=== PATIENT | female | born 1955 | race Caucasian/White ===

== ENCOUNTER → 2018-01-06 07:31 | Outpatient (CLI) | payer OTHER, SELFPAY ==
--- NOTE | 2018-01-06 07:53 | RAD_ITS ---
STUDY: X-RAY - PELVIS AND RIGHT HIP REASON FOR EXAM: Female, 62 years old. Right hip pain. TECHNIQUE: Radiological exam, hip, unilateral, with pelvis when performed; 2 or 3 views. COMPARISON: None. FINDINGS: There is a non-specific bowel gas pattern. Normal visualized soft tissue structures. There is narrowing with cortical sclerosis and osteophyte formation of the sacroiliac joint consistent with degenerative osteoarthritic changes. Normal bilateral superior and inferior pubic rami. Normal pubic symphysis. Normal bilateral ischial tuberosities. Normal visualized femoral head. Normal acetabulum. Normal hip joint. RAD/Hip 2-3 Views with Pelvis IMPRESSION: Degenerative changes of the sacroiliac joints bilaterally. Electronically Signed: George Sheikh MD at 13:07 EDT Tel [phone], Service support ,
--- NOTE | 2018-01-06 07:54 | RAD_ITS ---
STUDY: X-RAY - LUMBAR SPINE REASON FOR EXAM: Female, 62 years old. Low back and right lower extremity pain. TECHNIQUE: 5 view(s) of the lumbar spine were obtained including oblique views. COMPARISON: None FINDINGS: Normal lumbar lordosis. There is no substantial scoliosis. There is a normal alignment of the vertebrae. Normal vertebral bodies and endplates. Transitional vertebrae at the L5-S1 level with moderate degree of disc space narrowing. Facet joint osteoarthritis. The soft tissue structures are unremarkable. RAD/L/S Spine Min 4 Views IMPRESSION: Degenerative changes of the spine, as detailed above. Electronically Signed: George Sheikh MD at 13:27 EDT Tel [phone], Service support ,
[2018-01-06 10:53] LABS: Absolute Lymphocyte Count 1.89 X10^3/ul (0.83-4.51); Absolute Neutrophil Count 3.2 X10^3/uL (2.0-7.7); Basophil# 0.04 X10^3/uL; Basophil% 0.7 % (0-1); Eosinophil# 0.16 X10^3/uL; Eosinophils% 2.8 % (0-5); Hematocrit 38.3 % (37-47); Hemoglobin 12.5 g/dl (12.0-15.0); Lymphocyte # 1.89 X10^3/ul (4.0); Lymphocyte % 32.7 % (19-41); Mean Corp Hgb Conc 32.6 g/gl (32-36); Mean Corpuscular Hgb 27.4 pg (27.0-32.0); Mean Platelet Vol. 11.4 fl (6.2-12.0); Monocyte# 0.48 X10^3/uL; Monocyte% 8.3 % (0-10); Neutrophil % 55.3 % (47-70); POSITIVE COUNT NO; POSITIVE DIFFERENTIAL NO; POSITIVE MORPHOLOGY NO; Platelet Count 238 K/mm3 (150-450); RBC Distribution Width CV 13.6 % (11.6-14.6); RBC Distribution Width SD 41.1 fl (35.1-43.9); Red Blood Count 4.56 M/mm3 (4.2-5.4); White Blood Count 5.8 K/mm3 (4.4-11.0)
[2018-01-06 11:13] LABS: Vitamin B12 367 pg/mL (211-911); Vitamin D,25 Hydroxy 14.8 ng/mL (29.95-100.01)
[2018-01-06 11:23] LABS: ALB/GLOB Ratio 1.1 RATIO (0.9-2.4); AST(SGOT) 17 U/L (15-37); Alanine Aminotransfer ALT/SGPT 22 U/L (13-56); Albumin, Serum 3.6 g/dL (3.2-5.0); Alkaline Phosphatase 116 U/L (45-117); Anion Gap 7 (5-15); BUN 17 mg/dL (7-18); BUN/Creat Ratio 24.2 RATIO (10-20); Calcium,Total 8.6 mg/dL (8.5-10.1); Chloride 104 mmol/L (98-107); Cholesterol 188 mg/dL (200); EST Glomerular Filtration Rate 90 mL/min (>60); Est Glom Filt Rate - Afr Amer 108 mL/min (>60); Globulin 3.4 g/dL (2.2-4.2); Glucose 92 mg/dL (74-106); High Density Lipoprotein 55 mg/dL; Iron 44 ug/dL (50-170); Sodium Level 139 mmol/L (136-145); Thyroid Stim Hormone (TSH) 1.13 uIU/mL (0.358-3.74); Triglycerides 129 mg/dL; Very Low Density Lipoprotein 26 mg/dL (5-40)
== END ==
PROVIDERS: Family Provider Family Medicine; PCP Family Medicine; Visit Provider Family Medicine
DX: Z00.01 Encounter for general adult medical examination with abnormal findings (principal); E11.9 Type 2 diabetes mellitus without complications; R53.83 Other fatigue; M51.37 Other intervertebral disc degeneration, lumbosacral region; M48.07 Spinal stenosis, lumbosacral region
CPT/HCPCS: 36415; 72110; 73502; 80053; 80061; 82306; 82607; 83540; 84443; 85025

== ENCOUNTER → 2019-01-23 07:07 | Outpatient (CLI) | payer OTHER, SELFPAY ==
[2019-01-23 10:07] LABS: Absolute Lymphocyte Count 2.19 X10^3/ul (0.83-4.51); Absolute Neutrophil Count 3.6 X10^3/uL (2.0-7.7); Basophil# 0.05 X10^3/uL; Basophil% 0.8 % (0-1); Eosinophil# 0.16 X10^3/uL; Eosinophils% 2.4 % (0-5); Hematocrit 36.6 % (37-47); Lymphocyte # 2.19 X10^3/ul (4.0); Mean Corp Hgb Conc 32.8 g/gl (32-36); Mean Corpuscular Hgb 26.7 pg (27.0-32.0); Mean Corpuscular Volume 81.5 fL (81-99); Mean Platelet Vol. 10.7 fl (6.2-12.0); Monocyte# 0.65 X10^3/uL; Monocyte% 9.8 % (0-10); Neutrophil # 3.58 X10^3/uL (2.7-7.7); Neutrophil % 53.8 % (47-70); Platelet Count 289 K/mm3 (150-450); RBC Distribution Width CV 13.6 % (11.6-14.6); RBC Distribution Width SD 39.8 fl (35.1-43.9); Red Blood Count 4.49 M/mm3 (4.2-5.4); White Blood Count 6.6 K/mm3 (4.4-11.0)
[2019-01-23 10:20] LABS: ALB/GLOB Ratio 1.1 RATIO (0.9-2.4); AST(SGOT) 16 U/L (15-37); Alanine Aminotransfer ALT/SGPT 21 U/L (13-56); Albumin, Serum 3.6 g/dL (3.2-5.0); Alkaline Phosphatase 121 U/L (45-117); Anion Gap 4 (5-15); BUN 12 mg/dL (7-18); BUN/Creat Ratio 13.3 RATIO (10-20); Calcium,Total 8.6 mg/dL (8.5-10.1); Chloride 106 mmol/L (98-107); Cholesterol 200 mg/dL (200); EST Glomerular Filtration Rate 67 mL/min (>60); Est Glom Filt Rate - Afr Amer 81 mL/min (>60); Ferritin 11 ng/mL (8-252); Globulin 3.3 g/dL (2.2-4.2); Glucose 94 mg/dL (74-106); High Density Lipoprotein 50 mg/dL; Iron 56 ug/dL (50-170); Potassium 3.9 mmol/L (3.5-5.1); Protein, Total 6.9 g/dL (6.4-8.2); Sodium Level 137 mmol/L (136-145); Thyroid Stim Hormone (TSH) 1.51 uIU/mL (0.358-3.74); Triglycerides 213 mg/dL; Very Low Density Lipoprotein 43 mg/dL (5-40)
[2019-01-23 10:21] LABS: POSITIVE COUNT NO; POSITIVE DIFFERENTIAL NO; POSITIVE MORPHOLOGY NO; Vitamin B12 433 pg/mL (211-911); Vitamin D,25 Hydroxy 48.2 ng/mL (29.95-100.01)
== END ==
PROVIDERS: Family Provider Family Medicine; PCP Family Medicine; Referring Provider Family Medicine; Visit Provider Family Medicine
DX: E11.9 Type 2 diabetes mellitus without complications (principal); E55.9 Vitamin D deficiency, unspecified; E53.8 Deficiency of other specified B group vitamins; D50.9 Iron deficiency anemia, unspecified; E78.5 Hyperlipidemia, unspecified; R53.83 Other fatigue
CPT/HCPCS: 36415; 80053; 80061; 82306; 82607; 82728; 83540; 84443; 85025

== ENCOUNTER → 2019-05-18 12:06 | Outpatient (CLI) | payer OTHER, SELFPAY | LOC: BFHLAB 12:06 | PROVIDERS: Family Provider Family Medicine; PCP Family Medicine; Visit Provider Family Medicine | DX: R10.2 Pelvic and perineal pain (principal); R30.0 Dysuria | CPT/HCPCS: 87086; 87088 ==

== ENCOUNTER → 2019-10-04 07:45 | Outpatient (CLI) | payer OTHER, SELFPAY ==
[2019-05-23 18:05] VITALS: BMI 32.1
--- NOTE | 2019-10-04 08:00 | RAD_ITS ---
We are attempting to reach an attending provider to discuss findings. An addendum with communication details will be sent when the communication is complete. STUDY: X-RAY CHEST REASON FOR EXAM: Female, 64 years old. Mid left rib pain TECHNIQUE: PA and lateral COMPARISON: None. FINDINGS: The lungs are clear and expanded. There is subtle nodular opacity projecting over the left lower lobe measuring approximately 9 mm on the PA view possibly artifactual. Cannot definitively exclude lung nodule. Tiny calcified granuloma in right upper lobe. There is no demonstrated pleural abnormality. Normal size heart. Normal mediastinum and abigail. Normal visualized pulmonary arteries. Normal visualized aortic arch and descending thoracic aorta. Dorsal spine demonstrates degenerative change. Normal visualized ribs, clavicles, and shoulders. Small hiatal hernia is present. There is no demonstrated abnormality of the visualized soft tissue structures of the upper abdomen. RAD/Chest PA and Lateral IMPRESSION: Subtle nodular opacity projecting over the left lower lobe possibly artifactual. CT would be helpful for further evaluation Electronically Signed: Francisco Javier Reyes MD at 17:16 EST , Service support ,
[2019-10-04 10:09] LABS: Absolute Lymphocyte Count 2.34 X10^3/uL (0.83-4.51); Absolute Neutrophil Count 3.2 X10^3/uL (2.0-7.7); Basophil# 0.07 X10^3/uL; Basophil% 1.1 % (0-1); Eosinophil# 0.17 X10^3/uL; Eosinophils% 2.6 % (0-5); Hematocrit 37.1 % (37-47); Hemoglobin 11.7 g/dL (12.0-15.0); Lymphocyte # 2.34 X10^3/ul (4.0); Lymphocyte % 36.1 % (19-41); Mean Corp Hgb Conc 31.5 g/dL (32-36); Mean Corpuscular Hgb 25.9 pg (27.0-32.0); Mean Corpuscular Volume 82.3 fL (81-99); Mean Platelet Vol. 11.3 fl (6.2-12.0); Monocyte# 0.68 X10^3/uL; Monocyte% 10.5 % (0-10); NRBC Flagged by Analyzer 0 % (0-5); Neutrophil % 49.4 % (47-70); Platelet Count 269 K/mm3 (150-450); RBC Distribution Width CV 14.1 % (11.6-14.6); RBC Distribution Width SD 42.1 fl (35.1-43.9); Red Blood Count 4.51 M/mm3 (4.2-5.4); White Blood Count 6.5 K/mm3 (4.4-11.0)
[2019-10-04 10:31] LABS: ALB/GLOB Ratio 1.1 RATIO (0.9-2.4); AST(SGOT) 15 U/L (15-37); Alanine Aminotransfer ALT/SGPT 22 U/L (13-56); Albumin, Serum 3.7 g/dL (3.2-5.0); Alkaline Phosphatase 128 U/L (45-117); Anion Gap 7 (5-15); BUN 15 mg/dL (7-18); BUN/Creat Ratio 16.5 RATIO (10-20); Calcium,Total 9.1 mg/dL (8.5-10.1); Chloride 106 mmol/L (98-107); Creatinine, Serum 0.91 mg/dL (0.55-1.02); EST Glomerular Filtration Rate 66 mL/min (>60); Est Glom Filt Rate - Afr Amer 80 mL/min (>60); Globulin 3.5 g/dL (2.2-4.2); Glucose 102 mg/dL (74-106); Lipase 124 U/L (73-393); Protein, Total 7.2 g/dL (6.4-8.2); Sodium Level 139 mmol/L (136-145)
== END ==
PROVIDERS: Family Provider Family Medicine; PCP Family Medicine; Referring Provider Family Medicine; Visit Provider Family Medicine
DX: R07.89 Other chest pain (principal); R07.9 Chest pain, unspecified; R53.83 Other fatigue; R10.9 Unspecified abdominal pain
CPT/HCPCS: 36415; 71046; 80053; 83690; 85025

== ENCOUNTER → 2019-10-12 07:28 | Outpatient (CLI) | payer OTHER, SELFPAY ==
[2019-05-23 18:05] VITALS: BMI 32.1
--- NOTE | 2019-10-12 07:30 | CT_ITS ---
STUDY: CT CHEST WITHOUT CONTRAST REASON FOR EXAM: Female, 64 years old. Abnormal chest xray, 9 mm subtle nodular opacity projecting over the left lower lobe-possibly artifactual. Left rib pain. RADIATION DOSAGE (If Supplied By Facility): CTDIvol = ( 16.95 ) mGy, DLP = ( 601.40 ) mGycm TECHNIQUE: Transaxial imaging was performed without the administration of intravenous contrast material. Multiplanar coronal and sagittal images were reformatted. Individualized dose optimization techniques were used for this CT. COMPARISON: Comparison is made with prior chest radiograph dated October 04, 2019. FINDINGS: Small bilateral benign-appearing axillary lymph nodes. There is a 9 mm calcified granuloma in the anterior aspect of the left lower lobe corresponding to the chest radiographic findings. There is no demonstrated pleural abnormality. There are calcifications of the coronary arteries. There are multiple small lymph nodes within the mediastinum, which are normal in size and morphology most compatible with reactive lymph hyperplasia. Normal hilar regions. Normal unenhanced pulmonary arteries. There is atherosclerotic calcification of the aortic arch . There are mild degenerative changes of the thoracic spine. Moderate sized hiatal hernia. The patient is status post cholecystectomy. CT/Chest without Contrast IMPRESSION: Calcified granuloma in the anterior aspect of the left lower lobe corresponding to the radiographic abnormality. Electronically Signed: George Sheikh, at 14:01 EST , Service support ,
== END ==
PROVIDERS: Family Provider Family Medicine; PCP Family Medicine; Referring Provider Family Medicine; Visit Provider Family Medicine
DX: R93.89 Abnormal findings on diagnostic imaging of other specified body structures (principal); R91.1 Solitary pulmonary nodule
CPT/HCPCS: 71250

== ENCOUNTER → 2020-04-16 | Outpatient (CLI) | payer OTHER, SELFPAY ==
[2019-05-23 18:05] VITALS: BMI 32.1
[2020-04-16 12:39] LABS: Absolute Lymphocyte Count 2.09 X10^3/uL (0.83-4.51); Absolute Neutrophil Count 2.6 X10^3/uL (2.0-7.7); Basophil# 0.08 X10^3/uL; Basophil% 1.5 % (0-1); Eosinophil# 0.17 X10^3/uL; Eosinophils% 3.1 % (0-5); Hematocrit 35.1 % (37-47); Lymphocyte # 2.09 X10^3/ul (4.0); Lymphocyte % 38.1 % (19-41); Mean Corp Hgb Conc 31.3 g/dL (32-36); Mean Corpuscular Hgb 25.9 pg (27.0-32.0); Mean Corpuscular Volume 82.6 fL (81-99); Mean Platelet Vol. 11.3 fl (6.2-12.0); Monocyte# 0.58 X10^3/uL; Monocyte% 10.6 % (0-10); NRBC Flagged by Analyzer 0 % (0-5); Neutrophil # 2.55 X10^3/uL (2.7-7.7); Neutrophil % 46.3 % (47-70); Platelet Count 281 K/mm3 (150-450); RBC Distribution Width CV 14.6 % (11.6-14.6); RBC Distribution Width SD 43.2 fl (35.1-43.9); Red Blood Count 4.25 M/mm3 (4.2-5.4); White Blood Count 5.5 K/mm3 (4.4-11.0)
[2020-04-16 13:01] LABS: Hemoglobin A1c 5.9 % (3.8-5.6)
[2020-04-16 13:15] LABS: Vitamin B12 670 pg/mL (211-911); Vitamin D,25 Hydroxy 60.9 ng/mL
[2020-04-16 13:27] LABS: AST(SGOT) 14 U/L (15-37); Alanine Aminotransfer ALT/SGPT 19 U/L (13-56); Albumin, Serum 3.6 g/dL (3.2-5.0); Alkaline Phosphatase 119 U/L (45-117); Anion Gap 7 (5-15); BUN 12 mg/dL (7-18); BUN/Creat Ratio 13.5 RATIO (10-20); Calcium,Total 8.8 mg/dL (8.5-10.1); Chloride 104 mmol/L (98-107); Cholesterol 194 mg/dL (200); Creatinine, Serum 0.89 mg/dL (0.55-1.02); EST Glomerular Filtration Rate 68 mL/min (>60); Est Glom Filt Rate - Afr Amer 82 mL/min (>60); Ferritin 7 ng/mL (8-252); Globulin 3.5 g/dL (2.2-4.2); Glucose 86 mg/dL (74-106); High Density Lipoprotein 59 mg/dL; Iron 39 ug/dL (50-170); Protein, Total 7.1 g/dL (6.4-8.2); Sodium Level 137 mmol/L (136-145); Triglycerides 180 mg/dL; Very Low Density Lipoprotein 36 mg/dL (5-40)
== END | disposition home or self-care (01) ==
LOC: BFHLAB 10:44
PROVIDERS: PCP Family Medicine; Visit Provider Family Medicine
DX: E11.9 Type 2 diabetes mellitus without complications (principal); R53.83 Other fatigue; E55.9 Vitamin D deficiency, unspecified; E53.8 Deficiency of other specified B group vitamins; D50.9 Iron deficiency anemia, unspecified; E78.5 Hyperlipidemia, unspecified
CPT/HCPCS: 36415; 80053; 80061; 82306; 82607; 82728; 83036; 83540; 84443; 85025

== ENCOUNTER → 2020-06-03 15:24 | Outpatient (CLI) | payer OTHER, SELFPAY ==
[2019-05-23 18:05] VITALS: BMI 32.1
--- NOTE | 2020-06-02 15:30 | EGD_PTH ---
PATIENT: GAUTAM SHULTZ LOC: [facility] U#:[id number] AGE/SX: 70/F ROOM: RE06/03/[address]: Dr. Giovani Domingo MD : 1955 BED: DIS: SPEC #: [id number] RECD: 06/03/20 14:51 STATUS: YURIY REJeremías #: [id number] SHARRON: 06/02/20 15:[address]: Giovani Domingo DEPT: SURGICAL PATHOLOGY RECD BY: Terrence Pretty ENTERED: 06/04/20 08:33 SP TYPE: EGD BIOPSY OTHR DR: Dr. Shweta Wevaer DO Tissues: A - Duodenum, NOS B - Gastric mucous membrane C - COLON BIOPSY Procedures: Trichrome (control) Special Stain Group II Surgery Specimen Level IV HEADER OPERATION: EGD with biopsy and colonoscopy with biopsy PRE-OP DIAGNOSIS: E61.1, R19.4 TISSUE SUBMITTED: A - Duodenal biopsy, B - Antral biopsy H/H, C - Random colon biopsies MICROSCOPIC DIAGNOSIS A. Duodenum, biopsy: No pathologic change. B. Gastric antrum, biopsy: Chronic gastritis with focal active gastritis. C. Colon, random biopsy: Suggestive of collagenous colitis. See comment. AM:ramesh 06/05/20 A. COMMENT A. The results of immunohistochemistry for Helicobacter pylori will be reported separately ([id number]). C. Trichrome stain with matched control is focally prominent and supports the diagnosis. Case has been reviewed in consultation with Dr. Soria who concurs with the above diagnosis. IDC:SJ MICROSCOPIC DESCRIPTION Slides are reviewed. GROSS DESCRIPTION A - Received in fixative is one container labeled with the patient's name and designated duodenal biopsy. The specimen consists of two irregular fragments of light villanueva soft tissue that in aggregate measure 0.5 x 0.3 x 0.1 cm. The specimen is totally submitted in one cassette. B - Received in fixative is one container labeled with the patient's name and designated antral biopsy. The specimen consists of multiple irregular fragments of light villanueva soft tissue that in aggregate measure 0.8 x 0.2 x 0.1 cm. The specimen is totally submitted in one cassette. C - Received in fixative is one container labeled with the patient's name and designated random colon biopsy. The specimen consists of multiple irregular fragments of light villanueva soft tissue that in aggregate measure 2 x 1 x 0.1 cm. The specimen is totally submitted in one cassette. / SJ:rg 06/04/20 TC:3 CPT: 12502 x3, 88755
--- NOTE | 2020-06-03 | IMM_PTH ---
PATIENT: GAUTAM SHULTZ LOC: [facility] U#:[id number] AGE/SX: 70/F ROOM: RE06/03/[address]: Dr. Giovani Domingo MD : 1955 BED: DIS: SPEC #: [id number] RECD: 06/04/20 09:35 STATUS: YURIY REQ #: [id number] SHARRON: 06/03/20 00:[address]: Giovani Domingo DEPT: IMMUNOHISTOCHEMISTRY RECD BY: Jennyfer Acosta ENTERED: 06/04/20 09:37 SP TYPE: IMMUNO OTHR DR: Dr. Shweta Weaver, DO Tissues: B - Stomach, NOS Procedures: H Pylori (initial) PHYSICIAN & INSTITUTION [place] [id number] SPECIMEN INFORMATION: Tissue Source: B - Antrum biopsy Clinical Info: E61.1, R19.4 Specimen Number: [id number] CPT code: 95018 METHODOLOGY: Deparaffinized sections of prefer/formalin-fixed tissue or PAP/DQ stained slides are incubated with monoclonal/polyclonal antibodies/oligonucleotide probes. Localization is made via biotin free immunoperoxidase method. Appropriate controls are performed and reacted as expected. Results on target cell population are indicated in the following table: RESULTS: ANTIBODY / CLONE RESULT Block B H Pylori (polyclonal) positive These tests were developed and their performance characteristics determined by [facility]. They may not have been cleared or approved by the [place]. Food and Drug Administration. The FDA has determined that such clearance or approval is not necessary. INTERPRETATION: B. Antrum biopsy: Positive for Helicobacter pylori organisms. AM:ramesh 06/05/20
== END ==
PROVIDERS: PCP Family Medicine; Referring Provider Internal Medicine Gastroenterology; Visit Provider Internal Medicine Gastroenterology
DX: E61.1 Iron deficiency (principal)
CPT/HCPCS: 88305; 88313; 88342

== ENCOUNTER → 2020-08-21 07:20 | Outpatient (CLI) | payer OTHER, SELFPAY ==
[2019-05-23 18:05] VITALS: BMI 32.1
--- NOTE | 2020-08-21 07:22 | BI_ITS ---
MAMMOGRAPHY - BILATERAL SCREENING REASON FOR EXAM: Female, 65 years old. Routine annual screening examination. PERTINENT HISTORY: Non-contributory. TECHNIQUE: Digital bilateral breast jonh (3D mammographic acquisition) in the CC and MLO projections. 2-D mediolateral oblique (MLO) and craniocaudad (CC) views of both breasts were obtained. CAD: Full Field Digital Mammography with Computer Added Detection was performed. COMPARISON: Comparison is made with prior examination in 08/19/2017 and 04/13/2016. FINDINGS: Breast Composition: The breasts are heterogeneously dense, which may obscure small masses. There are no dominant masses or suspicious calcifications. Stable 7 mm well-defined nodule in the deep midportion of the right breast. This most likely represents a small intramammary lymph node. No other significant abnormalities are identified. There has been no significant change since the prior study. BI/SCREEN MAMM (CAD) W/JONH BILAT IMPRESSION: Stable bilateral screening mammogram. Yearly follow-up mammogram recommended. (A) ASSESSMENT CATEGORY: BIRADS Category 2: Benign. A letter regarding these results will be sent to the patient by the facility within 30 days. Approximately 10% of breast cancers are not detected by mammography. A normal mammogram should not delay biopsy of a clinically suspicious abnormality. [id number] Electronically Signed: George Sheikh, at 9:31 EDT , Service support ,
== END ==
PROVIDERS: PCP Family Medicine; Referring Provider Obstetrics & Gynecology; Visit Provider Obstetrics & Gynecology
DX: Z12.31 Encounter for screening mammogram for malignant neoplasm of breast (principal)
CPT/HCPCS: 77063; 77067

== ENCOUNTER 2020-11-09 13:49 | Emergency (ER) | payer OTHER, SELFPAY ==
[2019-05-23 18:05] VITALS: BMI 32.1
[2020-11-09 13:50] VITALS: BP 140/83; PULSE 108; RESP 17; TEMP 36.6; O2SAT 96; BMI 32.1
--- NOTE | 2020-11-09 14:31 | EKG12_ITS ---
Test Reason : CHEST TIGHTNESS Blood Pressure : / mmHG Vent. Rate : 096 BPM Atrial Rate : 096 BPM P-R Int : 142 ms QRS Dur : 084 ms QT Int : 344 ms P-R-T Axes : 055 032 030 degrees QTc Int : 434 ms Normal sinus rhythm Normal ECG Confirmed by BARTOLO AN, MUKUND ([id number]), video news editor ISAAK GREENE ([id number]) on 11/12/2020 6:56:12 AM Referred By: CL Confirmed By:MUKUND MCFARLAND MD
--- NOTE | 2020-11-09 14:50 | RAD_ITS ---
STUDY: X-RAY CHEST REASON FOR EXAM: Female, 65 years old. COUGH, SOB, LOSS OF TASTE AND SMELL TECHNIQUE: AP COMPARISON: 10/04/2018 FINDINGS: EKG leads project over the chest. The lungs are clear and expanded. There is no demonstrated pleural abnormality. Normal size heart. Normal mediastinum and abigail. Normal visualized pulmonary arteries. Normal visualized aortic arch and descending thoracic aorta. Normal visualized thoracic spine. Normal visualized ribs, clavicles, and shoulders. Hiatal hernia stable. RAD/Chest 1 View (Portable) IMPRESSION: Stable, nonacute portable x-ray examination of the chest. Electronically Signed: Edwin Saldana MD ([place]) at 15:07 EST , Service support ,
[2020-11-09 14:54] VITALS: O2SAT 97
[2020-11-09 14:57] LABS: Absolute Neutrophil Count 4.3 X10^3/uL (2.0-7.7); Basophil# 0.08 X10^3/uL; Basophil% 1.2 % (0-1); Eosinophil# 0.12 X10^3/uL; Eosinophils% 1.8 % (0-5); Hemoglobin 9.2 g/dL (12.0-15.0); Mean Corp Hgb Conc 30.7 g/dL (32-36); Mean Corpuscular Hgb 23.3 pg (27.0-32.0); Mean Corpuscular Volume 75.9 fL (81-99); Mean Platelet Vol. 10.5 fl (6.2-12.0); Monocyte# 0.55 X10^3/uL; Monocyte% 8.1 % (0-10); NRBC Flagged by Analyzer 0 % (0-5); Neutrophil # 4.33 X10^3/uL (2.7-7.7); Neutrophil % 63.5 % (47-70); Platelet Count 317 K/mm3 (150-450); RBC Distribution Width CV 14.6 % (11.6-14.6); RBC Distribution Width SD 40.4 fl (35.1-43.9); Red Blood Count 3.95 M/mm3 (4.2-5.4); White Blood Count 6.8 K/mm3 (4.4-11.0)
--- NOTE | 2020-11-09 14:58 | ED.VISSUMM ---
- ER Visit Summary Date of Service: 11/09/20 Chief Complaint: Shortness of breath History of Present Illness: The patient is a 65 F who presents with shortness of breath that has been getting worse over the past 3 days. Patient states she feels like it is hard to breathe. Patient states this is worse with walking and going up and down stairs. Patient states she has been taking albuterol aerosols at home with some relief. Patient admits to a loss of taste but denies any loss of smell. Patient also admits to rhinorrhea and sore throat. Patient states she is coughing up some thick yellow and green sputum. Patient does admit to a headache. Physical Examination: Vital signs are stable except for mild tachycardia of 108. Patient is afebrile. Patient is in no acute distress. Oral mucosa is pink and moist. Neck is supple. Trachea is midline. There is no JVD noted. Heart was regular rate and rhythm. Lungs showed some mild expiratory wheezing bilaterally. There is good respiratory effort. There are no retractions. Abdomen is soft. Bowel sounds are normal. There is no tenderness. There is no rebound or guarding noted. Skin is warm dry. Cranial nerves II through XII are intact. There are no focal motor or sensory deficits noted. Extremities are intact. There is no calf tenderness or edema. Test Results: EKG was obtained. On my interpretation, there is a normal sinus rhythm with a rate of 96. There are no acute ST or T wave changes. CBC shows mild anemia with a hemoglobin of 9.2 hematocrit 30.0. Comprehensive metabolic profile was within normal limits. COVID-19 rapid antigen test was obtained and was negative. Portable 1 view chest x-ray was obtained. On my interpretation, lung mccurdy are clear. There is normal cardiac silhouette. Bony thorax is normal. There is no acute process noted. Radiologist also interpreted the x-ray and agrees. Emergency Department Course and Treatment: Patient was given albuterol inhaler here. Patient was feeling better on reevaluation. Patient was given a dose of Tylenol. Patient was instructed to continue Tylenol and ibuprofen as needed for pain. Patient was instructed to follow-up with her primary care physician in 5 to 7 days. Patient understood and was agreeable with the plan. All questions were answered. Disposition: Discharge home Impression: Viral upper respiratory infection This note was generated with [employer] dictation software. It may contain incorrect words, spelling, and punctuation that were not noted in review of the chart prior to signing ED Disposition - Plan for ED Patient: Disposition: Home or Assisted Living Diagnosis: Viral illness Instructions: ED URI, Viral, No Abx (Adult) Referrals: Shweta Weaver DO [Primary Care Provider] - 5-7 Days
[2020-11-09] MEDS: Acetaminophen 500 MG Tablet 1000 MG PO (15:01)
[2020-11-09 15:20] LABS: AST(SGOT) 13 U/L (15-37); Alanine Aminotransfer ALT/SGPT 16 U/L (13-56); Albumin, Serum 3.4 g/dL (3.2-5.0); Alkaline Phosphatase 117 U/L (45-117); Anion Gap 5 (5-15); BUN 11 mg/dL (7-18); BUN/Creat Ratio 12.6 RATIO (10-20); Calcium,Total 8.5 mg/dL (8.5-10.1); Chloride 108 mmol/L (98-107); Creatinine, Serum 0.87 mg/dL (0.55-1.02); EST Glomerular Filtration Rate 69 mL/min (>60); Est Glom Filt Rate - Afr Amer 84 mL/min (>60); Estimated Creatinine Clearance 55.67 ml/min; Globulin 3.4 g/dL (2.2-4.2); Glucose 118 mg/dL (74-106); Potassium 3.6 mmol/L (3.5-5.1); Protein, Total 6.8 g/dL (6.4-8.2); Sodium Level 139 mmol/L (136-145)
[2020-11-09 15:23] LABS: Lactic Acid 1.6 mmol/L (0.4-1.9)
[2020-11-09 16:00] VITALS: BP 134/87; PULSE 77; RESP 16; TEMP 36.8; O2SAT 97
[2020-11-09 18:04] VITALS: BP 111/79; PULSE 77; RESP 14; O2SAT 97
== END 2020-11-09 18:05 | disposition home or self-care (01) ==
PROVIDERS: Emergency Provider Emergency Medicine; PCP Family Medicine
DX: J06.9 Acute upper respiratory infection, unspecified (principal)
CPT/HCPCS: 71045; 80053; 82607; 83605; 85025; 87040; 87426; 93005; 99285; A4216

== ENCOUNTER → 2020-11-10 09:37 | Outpatient (CLI) | payer OTHER, SELFPAY ==
[2020-11-09 13:50] VITALS: BMI 32.1
[2020-11-10 10:45] LABS: Ferritin 5 ng/mL (8-252); Iron 18 ug/dL (50-170)
== END ==
LOC: ED 09:38 → BFHLAB 11:46
PROVIDERS: PCP Family Medicine; Visit Provider Family Medicine
DX: D64.9 Anemia, unspecified (principal)
CPT/HCPCS: 82728; 83540

== ENCOUNTER → 2020-12-15 08:23 | Outpatient (CLI) | payer OTHER, SELFPAY ==
[2020-12-15 12:50] LABS: Absolute Lymphocyte Count 1.65 X10^3/uL (0.83-4.51); Absolute Neutrophil Count 2.2 X10^3/uL (2.0-7.7); Basophil# 0.07 X10^3/uL; Basophil% 1.6 % (0-1); Eosinophil# 0.12 X10^3/uL; Eosinophils% 2.7 % (0-5); Hematocrit 33.4 % (37-47); Hemoglobin 9.8 g/dL (12.0-15.0); Lymphocyte # 1.65 X10^3/ul (4.0); Lymphocyte % 36.9 % (19-41); Mean Corp Hgb Conc 29.3 g/dL (32-36); Mean Corpuscular Hgb 22.6 pg (27.0-32.0); Mean Platelet Vol. 11.1 fl (6.2-12.0); Monocyte# 0.41 X10^3/uL; Monocyte% 9.2 % (0-10); NRBC Flagged by Analyzer 0 % (0-5); Neutrophil # 2.21 X10^3/uL (2.7-7.7); Neutrophil % 49.4 % (47-70); Platelet Count 321 K/mm3 (150-450); RBC Distribution Width CV 15.1 % (11.6-14.6); RBC Distribution Width SD 41.8 fl (35.1-43.9); Red Blood Count 4.34 M/mm3 (4.2-5.4); White Blood Count 4.5 K/mm3 (4.4-11.0)
[2020-12-15 13:05] LABS: Vitamin B12 1077 pg/mL (211-911)
[2020-12-15 13:21] LABS: Ferritin 7 ng/mL (8-252); Iron 22 ug/dL (50-170)
== END ==
PROVIDERS: PCP Family Medicine; Visit Provider Family Medicine
DX: D64.9 Anemia, unspecified (principal); E61.1 Iron deficiency; E53.8 Deficiency of other specified B group vitamins
CPT/HCPCS: 36415; 82607; 82728; 83540; 85025

== ENCOUNTER → 2021-05-22 08:14 | Outpatient (CLI) | payer OTHER, SELFPAY ==
[2021-05-22 10:21] LABS: Absolute Lymphocyte Count 1.97 X10^3/uL (0.83-4.51); Absolute Neutrophil Count 3.1 X10^3/uL (2.0-7.7); Basophil# 0.05 X10^3/uL; Basophil% 0.9 % (0-1); Eosinophils% 3.4 % (0-5); Hematocrit 33.6 % (37-47); Hemoglobin 10.4 g/dL (12.0-15.0); Lymphocyte # 1.97 X10^3/ul (0.83-4.51); Lymphocyte % 33.8 % (19-41); Mean Corpuscular Hgb 24.6 pg (27.0-32.0); Mean Corpuscular Volume 79.4 fL (81-99); Mean Platelet Vol. 11.1 fl (6.2-12.0); Monocyte# 0.53 X10^3/uL; Monocyte% 9.1 % (0-10); NRBC Flagged by Analyzer 0 % (0-5); Neutrophil # 3.05 X10^3/uL (2.7-7.7); Neutrophil % 52.5 % (47-70); Platelet Count 335 K/mm3 (150-450); RBC Distribution Width CV 14.6 % (11.6-14.6); RBC Distribution Width SD 41.9 fl (35.1-43.9); Red Blood Count 4.23 M/mm3 (4.2-5.4); White Blood Count 5.8 K/mm3 (4.4-11.0)
[2021-05-22 10:28] LABS: Ferritin 8 ng/mL (8-252); Iron 43 ug/dL (50-170)
[2021-05-22 10:31] LABS: Vitamin B12 700 pg/mL (211-911)
== END ==
PROVIDERS: PCP Family Medicine; Referring Provider Family Medicine; Visit Provider Family Medicine
DX: D64.9 Anemia, unspecified (principal); E61.1 Iron deficiency; E53.8 Deficiency of other specified B group vitamins
CPT/HCPCS: 36415; 82607; 82728; 83540; 85025

== ENCOUNTER → 2021-08-24 07:41 | Outpatient (CLI) | payer OTHER, SELFPAY ==
--- NOTE | 2021-08-24 07:44 | BI_ITS ---
MAMMOGRAPHY - BILATERAL SCREENING REASON FOR EXAM: Female, 66 years old. Routine annual screening examination. PERTINENT HISTORY: Non-contributory. TECHNIQUE: Digital bilateral breast jnoh (3D mammographic acquisition) in the CC and MLO projections. 2-D mediolateral oblique (MLO) and craniocaudad (CC) views of both breasts were obtained. CAD: Full Field Digital Mammography with Computer Added Detection was performed. COMPARISON: Comparison is made with prior study 08/21/2020 and 08/19/2017. FINDINGS: Breast Composition: The breasts are heterogeneously dense, which may obscure small masses. There are no dominant masses or suspicious calcifications. Stable 7 mm well-defined nodule in the deep midportion of the right breast. This most likely represents a small lymph node. No other significant abnormalities are identified. There has been no significant change since the prior study. BI/SCRN MAMM (CAD)W/JONH BILAT IMPRESSION: Stable bilateral screening mammogram. Yearly follow-up mammogram recommended. (A) ASSESSMENT CATEGORY: BIRADS Category 2: Benign. A letter regarding these results will be sent to the patient by the facility within 30 days. Approximately 10% of breast cancers are not detected by mammography. A normal mammogram should not delay biopsy of a clinically suspicious abnormality. [id number] Electronically Signed: George Sheikh MD at 8:26 EDT , Service support ,
== END ==
PROVIDERS: PCP Family Medicine; Referring Provider Obstetrics & Gynecology; Visit Provider Obstetrics & Gynecology
DX: Z12.31 Encounter for screening mammogram for malignant neoplasm of breast (principal)
CPT/HCPCS: 77063; 77067

== ENCOUNTER → 2021-10-19 12:38 | Outpatient (CLI) | payer OTHER, SELFPAY | PROVIDERS: PCP Family Medicine; Visit Provider Family Medicine | DX: U07.1 COVID-19 (principal) | CPT/HCPCS: 87633; 87635; U0005; U0003 ==

== ENCOUNTER 2022-01-31 21:07 | Observation (INO) | payer MEDICARE, OTHER, SELFPAY ==
--- NOTE | 2022-01-31 21:05 | EKG12_ITS ---
Test Reason : AM EKG Blood Pressure : / mmHG Vent. Rate : 069 BPM Atrial Rate : 069 BPM P-R Int : 156 ms QRS Dur : 076 ms QT Int : 416 ms P-R-T Axes : 066 079 048 degrees QTc Int : 445 ms Normal sinus rhythm Normal ECG When compared with ECG of 31-JAN-2022 21:52, MANUAL COMPARISON REQUIRED, DATA IS UNCONFIRMED Confirmed by CLAUDIA AN, LENNY ([id number]), videotape editor YG GRAY ([id number]) on 02/05/2022 1:11:06 PM Referred By: Confirmed By:SKY TAYLOR MD
--- NOTE | 2022-01-31 21:47 | PCM.HP.STD ---
HPI - General General Date of Admission: 01/31/22 Date of Service: 01/31/22 Chief Complaint: Chest pain HPI Narrative The patient is a 66 y/o F w/ PMHx: Anxiety and Depression, Chronic anemia/Fe/Vit B12, Hx Diabetes mellitus type II, Hx HTN, Hx HLD, GERD, Hx COVID-19 illness 09/2021, PMR who presents to the [facility] as direct admission on 01/31/22 following evaluation at OSH ED on 01/31/22 with history of onset chest discomfort starting the day prior to OSH ED presentation noted to be located in the midsternal region without radiation, described as sharp, constant, rated 6/10 in severity with home self administration 81 mg po x 2 with no improvement with any interventions with associated dyspnea with noted specifically ongoing shortness of breath with exertion over the last month with occasional wheezing with underlying asthma history but has had no worsening status or recent cough and never had any associated chest discomfort prompting evaluation. Work-up in the OSH ED included VS BP 123/87, RR 16, HR 78, T 96.9, 97% on RA, CTA chest with no acute evidence of PE, no acute cardiopulmonary findings, moderate-sized sliding-type hiatal hernia, high-sensitivity initial troponin initial 7 and repeat 7, chest x-ray with small nodular density overlying left lower rib stable compared to prior, SARS Covid PCR negative, negative influenza AMB, CBC with WC 6.8, hemoglobin 10.8, platelet 269 without marked shift, BMP with BUN/creatinine 12/0.1, sodium 138, potassium 3.9, chloride 104, glucose 136, proBNP 149, D-dimer 750, EKG SR with nonspecific changes without acute evidence of ischemia. In the ED patient administered NG SL x 2, ASA 81 mg x 2 with improvement of chest pain 3/10. Patient has had care at [facility] prior and requested transfer to this facility. Upon arrival at [facility] she notes still 3 of 10 discomfort to the midsternal chest with no radiation. EKG repeat at [facility] with normal sinus rhythm with no acute evidence of ischemia. [facility] Medical History (Updated 01/31/22 @ 22:14 by Ivette Salinas) Anemia Anxiety Anxiety and depression Asthma Chronic iron deficiency anemia Chronic pain COVID-19 Diabetes Diabetes mellitus, type 2 GERD (gastroesophageal reflux disease) HLD (hyperlipidemia) HTN (hypertension) Non-smoker Polymyalgia rheumatica Sleep apnea Home Medications esomeprazole magnesium [Nexium] 40 mg PO DAILY 09/03/13 [History Last Taken 09/01/13 08:00] aspirin 81 mg PO DAILY@0800 #30 tab.chew 09/04/13 [Rx Last Taken Unknown] Vitamin Daily 01/31/22 [History Last Taken Unknown] Vitamin-D + [place]-3 01/31/22 [History Last Taken Unknown] albuterol sulfate INHALATION 01/31/22 [History Last Taken Unknown] calcium 01/31/22 [History Last Taken Unknown] cyanocobalamin (vitamin B-12) 01/31/22 [History Last Taken Unknown] Allergy/AdvReac Type Severity Reaction Status Date / Time Penicillins Allergy Hives Verified 11/09/20 13:50 morphine AdvReac Hives Verified 01/31/22 22:17 Family History (Updated 01/31/22 @ 19:[address] Trisha Nguyen MD) Mother CAD (coronary artery disease) CABG age 59. Hypertension Heart disease Myocardial infarction Father CAD (coronary artery disease) [place] in his 70s. Hypertension Heart disease Myocardial infarction Brother Myocardial infarction Diabetes Sister COPD (chronic obstructive pulmonary disease) Surgical History (Updated 01/31/22 @ 22:14 by Ivette Salinas) H/O arthroscopic knee surgery History of appendectomy History of carpal tunnel release History of uterine suspension procedure S/P appendectomy S/P bilateral cataract extraction Status post hysteroscopic ablation of endometrium Social History (Updated 01/31/22 @ 19:[address] Trisha Nguyen MD) household members: other details: None, , spouse passed 2002. Smoking Status: Never smoker alcohol intake: never substance use type: does not use ROS ROS Narrative Admission Review of Systems: CONSTITUTIONAL: No weight loss, fever, chills, + weakness or fatigue. HEENT: Eyes: No visual loss, blurred vision, double vision or yellow sclerae. Ears, Nose, Throat: No hearing loss, sneezing, congestion, runny nose or sore throat. SKIN: No rash or itching, lesions, wounds. CARDIOVASCULAR: + chest pain, chest pressure or chest discomfort, No palpitations, edema, orthopnea, syncopal events. RESPIRATORY: + Shortness of breath, occasional wheezing, No cough or sputum, hemoptysis. GASTROINTESTINAL: No anorexia, nausea, vomiting or diarrhea, abdominal pain, melena, BRBPR. GENITOURINARY: No dysuria, frequency, urgency or retention. NEUROLOGICAL: No headache, dizziness, syncope, paralysis, ataxia, numbness or tingling in the extremities, focal weakness, change in bowel or bladder control, seizure. MUSCULOSKELETAL: + muscle, back pain, joint pain or stiffness. HEMATOLOGIC: + anemia, bleeding or bruising. LYMPHATICS: No enlarged nodes. No history of splenectomy. PSYCHIATRIC: + history of depression or anxiety. ENDOCRINOLOGIC: No reports of sweating, cold or heat intolerance. No polyuria or polydipsia. ALLERGIES: + history of asthma, hives, eczema or rhinitis. Physical Exam Narrative Physical Examination: General: Awake, alert, oriented x 3 and cooperative, seated upright in the PCU bed, fatigued otherwise no acute distress. Skin: Normal color, normal turgor, no icterus, no cyanosis. HEENT: AT/NC, EOMI, PERRLA, MMM, no carotid bruits or JVD noted. Lungs: Mildly diminished, greater bases, very scant occasional end expiratory wheeze, no rales or rhonchi, no evidence of any distress. Heart: Currently regular rate and rhythm; no gallop, rub audible. Abdomen: Soft, obese, NTTP, ND, normal BS, no HSM. Extremities: No cyanosis, clubbing, or edema. Neurological: Patient awake, alert, oriented as noted, cognitive function intact; pupils equally reactive to light and accommodation, cranial nerves II-XII grossly normal, moving all 4 extremities, no focal deficits, strength mildly global decrease secondary to acute complaints. Psychiatric: Affect appears fatigued otherwise normal, no acute evidence of depressive or anxiety feelings. Assessment & Plan Assessment/Plan (1) Chest pain: QUALIFIERS: Chest pain type: unspecified Qualified Code(s): R07.9 - Chest pain, unspecified PLAN: The patient is a 66 y/o F w/ PMHx: Anxiety and Depression, Chronic anemia/Fe/Vit B12, Hx Diabetes mellitus type II, Hx HTN, Hx HLD, GERD, Hx COVID-19 illness 09/2021, PMR who presents to the [facility] as direct admission on 01/31/22 following evaluation at OSH ED on 01/31/22 with history of onset chest discomfort starting the day prior to OSH ED presentation noted to be located in the midsternal region without radiation, described as sharp, constant, rated 6/10 in severity with exertional dyspnea. #1. Chest Pain: EKG in ED sinus rhythm with nonspecific changes with no acute evidence of a skin, CXR w/ no acute cardiopulmonary findings with follow-up CTPA without acute findings, initial trop and repeat both 7. Will admit to PCU, place on a monitored bed to assure no acute myocardial infarction with serial cardiac enzymes and EKGs. We will plan a.m. cardiac stress testing on Tuesday. ECHO requested. FLP in a.m. Magnesium level requested. ASA, NG, morphine. #2. History Diabetes mellitus type II: Patient with history of prediabetes and eventual diabetic history however not currently on medications but from discussion suspect has had worsening A1c, will obtain to assist in initiation of medications if appropriate at this time, ADA diet until n.p.o. status, accu checks w/ ISS. #3. History Hypertension: Patient with noted history of previous lisinopril, hydrochlorothiazide regimen, no longer on regimen per current list, will monitor and add regimen if appropriate, noted BP normal range at outside facility, as needed IV hydralazine. #4. Chronic Asthma with allergic rhinitis: Not on any home inhalers, will maintain on ATC budesonide, PRN albuterol, continue home Singulair and cetirizine regimen. #5. Hyperlipidemia: Not on any regimen, FLP in a.m. #6. Anxiety and depression: Recent records noting outpatient citalopram regimen, not on current list, clarifying. #7. GERD with hiatal hernia: We will continue patient home PPI. #8. Chronic anemia, iron deficiency, vitamin B12 deficiency: From review of records patient with outpatient injections with vitamin B12, outside facility hemoglobin 10.8, appears stable, trend. #9. DVT prophylaxis: SCDs, Lovenox. Charges/Coding Visit Charges OBSV E&M: 44739 Initial observation care L3
--- NOTE | 2022-01-31 21:49 | ECHOCS_ITS ---
Reason For Study: ARRHYTHMIA Procedure This was a 2D Doppler, Color Flow transthoracic echocardiogram. The study was technically difficult. Due to body habitus. Exam performed portable in patient room. Left Ventricle Normal LV size. Left ventricular systolic function is normal. The estimated ejection fraction is 60 %. Stage 1 diastolic dysfunction. No regional wall motion abnormalities noted. Right Ventricle Normal RV size. Normal systolic function. Atria Normal left atrium. Normal right atrium. Mitral Valve Normal mitral valve. Tricuspid Valve Normal tricuspid valve. Aortic Valve Trisinus/trileaflet aortic valve. Pulmonic Valve The pulmonic valve is not well visualized. Great Vessels Normal aortic root. The pulmonary artery is normal size. Normal inferior vena cava. Pericardium/Pleural No pericardial effusion. Medication Diluted definity 4.0ml given slow IV push to enhance endocardial definition. MMode/2D Measurements & Calculations LVIDd: 4.8 cm IVSd: 0.80 cm Ao root diam: 3.0 cm LVIDs: 3.1 cm LVPWd: 0.80 cm RVDd: 2.8 cm FS: 35.3 % LAV(MOD-bp): 66.2 ml LA A4 area: 20.9 cm2 LA dimension(2D): 3.8 cm LAV(MOD-bp) Indexed: 35.4 ml/m2 LAV(MOD-sp2): 65.2 ml LAV(MOD-sp4): 57.1 ml Time Measurements MV dec time: 0.21 sec Doppler Measurements & Calculations MV E max rocky: 102.5 cm/sec Lat Peak E' Rocky: 8.1 cm/sec Med Peak E' Rocky: 6.6 cm/sec MV A max rocky: 120.9 cm/sec E/E' lat: 12.7 E/E' med: 15.6 MV E/A: 0.85 Ao V2 max: 166.8 cm/sec LV V1 max: 122.4 cm/sec PA V2 max: 142.4 cm/sec Ao max P.1 mmHg LV V1 max P.0 mmHg ECHO/Echo Complete W/ Contrast Interpretation Summary Normal LV size. Left ventricular systolic function is normal. The estimated ejection fraction is 60 %. Stage 1 diastolic dysfunction. Contrast injection was performed. Ordering Physician: Trisha Nguyen Referring Physician: Shweta Weaver Performed By: Lulu Parkinson, MAGCS, RVT
[2022-01-31 21:50] VITALS: BP 184/85; PULSE 81; RESP 18; TEMP 36.4; O2SAT 99
[2022-01-31 21:53] VITALS: PULSE 102; BMI 32.9
[2022-01-31 22:57] LABS: Magnesium 1.9 mg/dL (1.6-2.6); Troponin-I HS < 3 pg/mL (3.0-54.0)
[2022-01-31] MEDS: 0.9% Normal Saline 1,000 ML 100 ML IV (23:02)
[2022-01-31 23:04] VITALS: BP 184/85; PULSE 81
[2022-01-31] MEDS: hydrALAZINE 20 MG/ML Vial 10 MG IV (23:04)
[2022-01-31] MEDS: Acetaminophen 325 MG Tablet 650 MG PO (23:07)
[2022-01-31] MEDS: 0.9% Saline Lock 10 ML Syringe IV (23:08)
[2022-01-31 23:25] VITALS: BP 144/77; PULSE 80; RESP 16; TEMP 36.6; O2SAT 98
[2022-02-01 00:01] LABS: Bedside Glucose 119 mg/dL (74-106)
[2022-02-01 00:47] LABS: Troponin-I HS < 3 pg/mL (3.0-54.0)
[2022-02-01 05:08] LABS: Absolute Neutrophil Count 4.1 X10^3/uL (2.0-7.7); Basophil# 0.08 X10^3/uL; Eosinophil# 0.18 X10^3/uL; Eosinophils% 2.3 % (0-5); Hemoglobin 10.6 g/dL (12.0-15.0); Lymphocyte % 33.9 % (19-41); Mean Corp Hgb Conc 32.1 g/dL (32-36); Mean Corpuscular Hgb 25.1 pg (27.0-32.0); Mean Platelet Vol. 10.6 fl (6.2-12.0); Monocyte# 0.69 X10^3/uL; NRBC Flagged by Analyzer 0 % (0-5); Neutrophil # 4.08 X10^3/uL (2.7-7.7); Neutrophil % 53.4 % (47-70); Platelet Count 255 K/mm3 (150-450); RBC Distribution Width CV 15.2 % (11.6-14.6); RBC Distribution Width SD 43.2 fl (35.1-43.9); Red Blood Count 4.23 M/mm3 (4.2-5.4); White Blood Count 7.7 K/mm3 (4.4-11.0)
[2022-02-01 05:23] VITALS: BP 150/78; PULSE 72; RESP 16; TEMP 36.6; O2SAT 98
[2022-02-01] MEDS: Acetaminophen 325 MG Tablet 650 MG PO ×2 (05:29→12:31)
[2022-02-01] MEDS: Aspirin E.C. 81 MG Tablet PO (05:29)
[2022-02-01 05:30] LABS: ALB/GLOB Ratio 1.1 RATIO (0.9-2.4); AST(SGOT) 13 U/L (15-37); Alanine Aminotransfer ALT/SGPT 13 U/L (13-56); Albumin, Serum 3.2 g/dL (3.2-5.0); Alkaline Phosphatase 95 U/L (45-117); Anion Gap 5 (5-15); BUN 11 mg/dL (7-18); BUN/Creat Ratio 16.2 RATIO (10-20); Calcium,Total 8.3 mg/dL (8.5-10.1); Chloride 108 mmol/L (98-107); Cholesterol 186 mg/dL (200); Creatinine, Serum 0.68 mg/dL (0.55-1.02); EST Glomerular Filtration Rate 92 mL/min (>60); Est Glom Filt Rate - Afr Amer 111 mL/min (>60); Estimated Creatinine Clearance 45.78 ml/min; Globulin 2.9 g/dL (2.2-4.2); Glucose 105 mg/dL (74-106); High Density Lipoprotein 51 mg/dL; Potassium 3.5 mmol/L (3.5-5.1); Protein, Total 6.1 g/dL (6.4-8.2); Sodium Level 138 mmol/L (136-145); Triglycerides 143 mg/dL; Troponin-I HS 3 pg/mL (3.0-54.0); Very Low Density Lipoprotein 29 mg/dL (5-40)
--- NOTE | 2022-02-01 05:55 | EKG12_ITS ---
Test Reason : CP Blood Pressure : / mmHG Vent. Rate : 080 BPM Atrial Rate : 080 BPM P-R Int : 142 ms QRS Dur : 078 ms QT Int : 390 ms P-R-T Axes : 061 053 038 degrees QTc Int : 449 ms Normal sinus rhythm Normal ECG When compared with ECG of 09-NOV-2020 14:02, No significant change was found Confirmed by CLAUDIA AN, LENNY ([id number]), department editor YG GRAY ([id number]) on 02/05/2022 1:12:10 PM Referred By: Confirmed By:SKY TAYLOR MD
[2022-02-01] MEDS: 0.9% Normal Saline 1,000 ML 100 ML IV (06:44)
[2022-02-01 06:51] LABS: Bedside Glucose 112 mg/dL (74-106)
[2022-02-01 06:53] VITALS: PULSE 73; RESP 16; O2SAT 98
[2022-02-01] MEDS: Budesonide Respules 0.5 MG/2 ML AMPUL.NEB. INHALATION (06:53)
[2022-02-01] MEDS: Albuterol 2.5 MG/3 ML VIAL.NEB. INHALATION (06:53)
[2022-02-01 07:00] VITALS: PULSE 75
[2022-02-01 11:11] VITALS: BP 133/81; PULSE 92; RESP 18; TEMP 36.6; O2SAT 99
[2022-02-01] MEDS: Pantoprazole Sodium 40 MG Tablet PO (11:17)
[2022-02-01 11:30] LABS: Bedside Glucose 146 mg/dL (74-106)
--- NOTE | 2022-02-01 12:53 | PCM.DC ---
Discharge Instructions Diet Discharge Diet: 1800 Calorie Control Diet Activity Discharge Activity: Return to Normal Activity Follow Up Care Test Results: Test results from this visit will be discussed in further detail at your follow-up appointment, if applicable. Discharge Plan Admission Admit Date/Time: 01/31/22 21:07 Primary Reason for Your Visit: Chest pain Attending Provider: Kimberly Persaud Primary Care Provider: Shweta Weaver Instructions Additional Instructions / Restrictions: Your stress test was negative. Your pain is likely musculoskeletal. Follow-up with your primary care doctor within 1 week. Continue to take tylenol, alternating with ibuprofen for chest wall pain. Discharge Orders/Prescriptions Prescriptions: Continued esomeprazole magnesium [Nexium] 40 MG capsule 40 mg PO DAILY RF: 0 aspirin 81 MG tablet,chewable 81 mg PO DAILY@0800 Qty: 30 RF: 0 albuterol sulfate [Ventolin HFA] 90 mcg/actuation HFA aerosol inhaler 1 INHALATION RF: 0 cyanocobalamin (vitamin B-12) 1,000 mcg/mL solution See Rx Instructions .ROUTE .COMPLEX RF: 0 Vitamin Daily RF: 0 Vitamin-D + [place]-3 capsule 1 cap DAILY RF: 0 calcium RF: 0 Referrals / Follow Up: Abebe Ramos DO [STAFF PHYSICIAN] - 02/11/22 10:45 am Shweta Weaver DO [Primary Care Provider] - Within 2 Weeks Disposition Disposition (needs filled in before D/C Order can be placed): Home, Self Care
--- NOTE | 2022-02-01 12:54 | STRESSREP ---
Stress Test Report Pharmacologic myocardial perfusion stress test. 66-year-old lady with a history of chest pain. Stress protocol: Resting EKG demonstrates normal sinus rhythm with a rate of 78 bpm normal intervals are noted resting blood pressure is 142/100 mmHg. 0.4 mg of regadenoson was infused per usual protocol followed by rapid venous saline flush injection continuous EKG monitoring was performed. The maximum heart rate attained was noted to be 117 bpm which was 75% of max impact at heart rate the maximum workload was 1 metabolic equivalent. At rest there were no ST or T wave changes noted to suggest ischemia and at peak infusion nonspecific ST changes were noted with did not meet the criteria for ischemia. No clinical angina was noted. Myocardial perfusion protocol. 11.8 mCi of technetium 99m sestamibi was injected at rest. 0.4 mg of regadenoson was infused per usual protocol. At peak infusion 33.4 mCi of technetium 99m sestamibi was injected stress images were obtained stress and rest images were reconstructed and compared in the short axis vertical long and horizontal long axis. Gated images were also obtained. Perfusion SPECT analysis: Review of the stress images demonstrate normal uptake of tracer noted in all areas of the myocardium. The resting images similarly demonstrate normal uptake of tracer noted in all areas of the myocardium. No areas of reversibility are noted to suggest ischemia and no previous infarct is noted. Gated SPECT analysis: The gated ejection fraction is over 60%. Conclusion: Normal pharmacologic myocardial perfusion stress test. Preserved ejection fraction.
--- NOTE | 2022-02-01 14:22 | DS.PCM_ITS ---
Providers Date of Admission: 01/31/22 Date of Discharge: 02/01/22 Primary Care Physician: Dr. Shweta Weaver DO Reason For Visit: CHEST PAIN Diagnosis Discharge Diagnosis (1) Chest pain: Status: Acute Code(s): R07.9 - Chest pain, unspecified Qualifiers: Chest pain type: unspecified Qualified Code(s): R07.9 - Chest pain, unspecified Medications at Discharge Home Medications esomeprazole magnesium [Nexium] 40 mg PO DAILY 09/03/13 aspirin 81 mg PO DAILY@0800 #30 tab.chew 09/04/13 Vitamin Daily 01/31/22 Vitamin-D + [place]-3 1 cap DAILY 01/31/22 albuterol sulfate [Ventolin HFA] 1 INHALATION 01/31/22 calcium 01/31/22 cyanocobalamin (vitamin B-12) See Rx Instructions .ROUTE .COMPLEX 01/31/22 Hospital Course Operations None Procedures Nuclear stress test Summary of Care Provided Minutes Spent on Discharge: 35 Hospital Course: 86-year-old female with past medical history of type II DM, anxiety/depression who comes in with chest pain that has been going on for 3 days on and off. Patient complains of left-sided sharp chest discomfort that is worse with exertion, appears to somehow radiate to her neck and her arm. She had associated shortness of breath that has been going on for weeks. She has underlying history of asthma. She is only on albuterol as needed. Patient's admitting vitals were stable. Her initial EKG showed no acute ST-T changes. Chest x-ray was unremarkable. Her troponins were unremarkable. She was admitted to the PCU and her enzymes cycled and all remained unremarkable. S he underwent nuclear stress test that was also unremarkable. Patient was seen the day of discharge and complains of left-sided chest discomfort, this chest discomfort was reproduced with palpation of the left side of the chest wall. Patient was reassured, asked to take Tylenol alternating with ibuprofen. She was also referred to pulmonology for PFTs. Physical Exam Narrative Physical exam: General: Alert, Oriented x3, Cooperative, No apparent distress, Well developed HEENT: Atraumatic Oral: Moist Mucosa Neck: Supple Lungs: Clear to auscultation, left-sided chest wall tenderness, reproducible Cardiovascular: HS I+II, regular, no murmurs Abdomen: Bowel Sounds Present, Soft, Non Tender Extremities: No edema Weight / BMI Weight Weight: 84.3 kg Body Mass Index (BMI) 32.9 ABG / Lab / Microbiology Data Result Diagrams: 02/01/22 04:22 02/01/22 04:22 Laboratory: Laboratory Results - last 24 hr 01/31/22 22:22: Magnesium 1.9, Troponin I High Sens < 3 L 01/31/22 22:45: POC Glucose 119 H 02/01/22 00:25: Troponin I High Sens < 3 L 02/01/22 04:22: WBC 7.7, RBC 4.23, Hgb 10.6 L, Hct 33.0 L, MCV 78.0 L, MCH 25.1 L, MCHC 32.1, RDW Std Deviation 43.2, RDW Coeff of [place] 15.2 H, Plt Count 255, MPV 10.6, Immature Gran % (Auto) 0.400, Neut % (Auto) 53.4, Lymph % (Auto) 33.9, [place] % (Auto) 9.0, Eos % (Auto) 2.3, Baso % (Auto) 1.0, Absolute Neuts (auto) 4.1, Absolute Lymphs (auto) 2.60, Nucleated RBC % 0 02/01/22 04:22: Sodium 138, Potassium 3.5, Chloride 108 H, Carbon Dioxide 25.0, Anion Gap 5, BUN 11, Creatinine 0.68, Estim Creat Clear Calc 45.78, Est GFR (MDRD) Af Amer 111, Est GFR (MDRD) Non-Af 92, BUN/Creatinine Ratio 16.2, Glucose 105, Calcium 8.3 L, Total Bilirubin 0.70, AST 13 L, ALT 13, Alkaline Phosphatase 95, Troponin I High Sens 3, Total Protein 6.1 L, Albumin 3.2, Globulin 2.9, Albumin/Globulin Ratio 1.1, Triglycerides 143, Cholesterol 186, LDL Cholesterol 106, VLDL Cholesterol 29, HDL Cholesterol 51 02/01/22 04:22: Hemoglobin A1c 6.0 H 02/01/22 05:34: POC Glucose 112 H 02/01/22 11:16: POC Glucose 146 H D/C Instructions Discharge Diet: 1800 Calorie Control Diet and 2000 mg Sodium Diet Meaningful Use Info Meaningful Use Diagnoses (Choose all that apply): None applicable Discharge Plan Admission Admit Date/Time: 01/31/22 21:07 Primary Reason for Your Visit: Chest pain Attending Provider: Kimberly Persaud Primary Care Provider: Shweta Weaver Instructions Additional Instructions / Restrictions: Your stress test was negative. Your pain is likely musculoskeletal. Follow-up with your primary care doctor within 1 week. Continue to take tylenol, alternating with ibuprofen for chest wall pain. Discharge Orders/Prescriptions Prescriptions: Continued esomeprazole magnesium [Nexium] 40 MG capsule 40 mg PO DAILY RF: 0 aspirin 81 MG tablet,chewable 81 mg PO DAILY@0800 Qty: 30 RF: 0 albuterol sulfate [Ventolin HFA] 90 mcg/actuation HFA aerosol inhaler 1 INHALATION RF: 0 cyanocobalamin (vitamin B-12) 1,000 mcg/mL solution See Rx Instructions .ROUTE .COMPLEX RF: 0 Vitamin Daily RF: 0 Vitamin-D + [place]-3 capsule 1 cap DAILY RF: 0 calcium RF: 0 Referrals / Follow Up: Abebe Ramos DO [STAFF PHYSICIAN] - 02/11/22 10:45 am Shweta Weaver DO [Primary Care Provider] - Within 2 Weeks Disposition Disposition (needs filled in before D/C Order can be placed): Home, Self Care Charges/Coding Visit Charges OBSV E&M: 21494 Observation care discharge
--- NOTE | 2022-02-01 15:25 | NURSING ---
Reviewed charting with Luis Antonio Reese RN
== END 2022-02-01 12:53 | disposition home or self-care (01) ==
PROVIDERS: Admitting Provider Family Medicine; PCP Family Medicine; Visit Provider Internal Medicine
DX: R07.89 Other chest pain (principal); M35.3 Polymyalgia rheumatica; E11.9 Type 2 diabetes mellitus without complications; I10 Essential (primary) hypertension; E78.5 Hyperlipidemia, unspecified; K21.9 Gastro-esophageal reflux disease without esophagitis; Z86.16 Personal history of COVID-19; J45.909 Unspecified asthma, uncomplicated; Z79.82 Long term (current) use of aspirin; Z79.899 Other long term (current) drug therapy; K44.9 Diaphragmatic hernia without obstruction or gangrene; D50.9 Iron deficiency anemia, unspecified; E53.8 Deficiency of other specified B group vitamins
CPT/HCPCS: 36415; 78452; 80053; 80061; 82962; 83036; 83735; 84484; 85025; 93005; 93017; 93306; 94640; 96361; 96374; 99218; A9500; J7030; Q9957; A4216; C8929; G0378; G0379; J2785

== ENCOUNTER 2022-02-11 11:25 | Outpatient (CLI) | payer MEDICARE, OTHER, SELFPAY ==
[2022-02-19 03:07] LABS: Alternaria tenuis <0.10 kU/L (Class 0); Ash, White <0.10 kU/L (Class 0); Aspergillus fumigatus <0.10 kU/L (Class 0); Bermuda Grass <0.10 kU/L (Class 0); Birch <0.10 kU/L (Class 0); Black Walnut <0.10 kU/L (Class 0); Cat Hair / Dander,Stand 2.48 kU/L (Class III); Cedar, Mountain <0.10 kU/L (Class 0); Cladosporium herbarum <0.10 kU/L (Class 0); Cockroach, American <0.10 kU/L (Class 0); Cottonwood <0.10 kU/L (Class 0); D farinae Mite <0.10 kU/L (Class 0); D pteronyssinus <0.10 kU/L (Class 0); Dog Epithelia 0.52 kU/L (Class I); Elm, American White <0.10 kU/L (Class 0); Immunoglobulin E 60 IU/mL (6-495); Maple/Box Elder <0.10 kU/L (Class 0); Mulberry, White <0.10 kU/L (Class 0); Oak, White <0.10 kU/L (Class 0); Pecan <0.10 kU/L (Class 0); Penicillium Notatum <0.10 kU/L (Class 0); Pigweed, Rough <0.10 kU/L (Class 0); Ragweed, Short/Common <0.10 kU/L (Class 0); Russian Thistle <0.10 kU/L (Class 0); Sheep Sorrel <0.10 kU/L (Class 0); Sycamore, American <0.10 kU/L (Class 0); Timothy Grass <0.10 kU/L (Class 0)
[2022-02-19 09:36] LABS: Immunoglobulin E 66 IU/mL (6-495); Mouse Urine <0.10 kU/L (Class 0)
== END 2022-02-11 23:59 | disposition home or self-care (01) ==
LOC: PAVLAB 11:26
PROVIDERS: PCP Family Medicine; Referring Provider Internal Medicine Critical Care Medicine; Visit Provider Internal Medicine Critical Care Medicine
DX: J45.909 Unspecified asthma, uncomplicated (principal)
CPT/HCPCS: 36415; 82785; 86003

== ENCOUNTER → 2022-02-12 | Outpatient (CLI) | payer MEDICARE, OTHER, SELFPAY ==
[2022-02-12 09:26] VITALS: BP 144/74; PULSE 70; RESP 18; O2SAT 99
[2022-02-12] MEDS: 0.9% NaCl Peripheral Flush Adult/Peds IV (09:35)
[2022-02-12] MEDS: 0.9% NaCl IVPB Med Flush (250 mL) 15 ML IV (09:37)
[2022-02-12] MEDS: Sodium Ferric Gluconat 250 MG in 0.9% Normal Saline 250 ML 135 MG IV (09:41)
== END | disposition home or self-care (01) ==
LOC: MEDOUTP 09:22
PROVIDERS: PCP Family Medicine; Referring Provider Family Medicine; Visit Provider Family Medicine
DX: D50.9 Iron deficiency anemia, unspecified (principal)
CPT/HCPCS: 96365; 96366; J7050; A4216; J2916

== ENCOUNTER → 2022-02-18 | Outpatient (CLI) | payer MEDICARE, OTHER, SELFPAY ==
--- NOTE | 2022-02-18 13:43 | PFTCOMP_ITS ---
COMPLETE PULMONARY FUNCTION TEST INTERPRETATION Brief HPI: Patient is a 66 year old female, currently under the care of Dr. Ramos, who presents to [facility] for complete pulmonary function tests secondary to diagnosis of asthma. Respiratory therapist reports good effort and reproducible results. Interpretation: Forced expiration spirometry shows a moderate large airways obstructive ventilatory defect with an FEV1 of 65% predicted. There is a significant bronchodilator response in FEV1 by strict ATS criteria. Spirograms are of good quality and plateau slowly, indicating slowly emptying areas of the lungs. The respiratory flow volume loop shows decreased expiratory flow rates at high lung volumes consistent with small airways obstruction. Lung volumes by body plethysmography show a decreased total lung capacity at 4.05 L, 84% predicted. All other lung volumes are within normal limits. Diffusion capacity by carbon monoxide is decreased at 47% predicted. The airway resistance is elevated. No previous pulmonary function tests were available for review. Impression: Partially reversible moderate mixed ventilatory defect with a disproportionate reduction diffusing capacity.
== END | disposition home or self-care (01) ==
LOC: PSN 09:54
PROVIDERS: PCP Family Medicine; Referring Provider Internal Medicine Critical Care Medicine; Visit Provider Internal Medicine Critical Care Medicine
DX: J45.909 Unspecified asthma, uncomplicated (principal)
CPT/HCPCS: 94060; 94726; 94729

== ENCOUNTER → 2022-02-22 | Outpatient (CLI) | payer MEDICARE, OTHER, SELFPAY ==
[2022-02-22 13:24] VITALS: PULSE 106; PULSE 107; PULSE 108; PULSE 109; PULSE 85; PULSE 86; O2SAT 97; O2SAT 98
--- NOTE | 2022-02-23 06:42 | PCM.PSN.6M ---
PSN 6 Minute Walk Test 6 Minute Walk Test 6 Minute Walk Test: 6 Minute Walk Test PSN:6-Minute Walk Test Start: 02/22/22 13:23 Freq: Status: Active Protocol: [id number] Document 02/22/22 13:24 CHIP (Rec: 02/22/22 13:26 CHIP [id number]) 6 Minute Walk Test Date Performed 02/22/22 Time Performed 12:30 Height 5 ft 4 in Weight: 81.647 kg Weight in Pounds 180.[address]: Abebe Ramos Assistive device used: None Pre-test Oxygen Delivery Method Room Air Pulse Ox (%) 98 Pulse Rate (60-100 beats/min) 86 Dyspnea Jameel Scale (0-10) 0.5 Exertion Jameel Scale (6-20) 6 1st minute Oxygen Delivery Method Room Air Pulse Ox (%) 98 Pulse Rate (60-100 beats/min) 107 H 2nd minute Oxygen Delivery Method Room Air Pulse Ox (%) 97 Pulse Rate (60-100 beats/min) 106 H 3rd minute Oxygen Delivery Method Room Air Pulse Ox (%) 98 Pulse Rate (60-100 beats/min) 109 H 4th minute Oxygen Delivery Method Room Air Pulse Ox (%) 97 Pulse Rate (60-100 beats/min) 106 H 5th minute Oxygen Delivery Method Room Air Pulse Ox (%) 97 Pulse Rate (60-100 beats/min) 108 H 6th minute Oxygen Delivery Method Room Air Pulse Ox (%) 97 Pulse Rate (60-100 beats/min) 107 H Dyspnea Ajmeel Scale (0-10) 4 Exertion Jameel Scale (6-20) 14 Post-test Oxygen Delivery Method Room Air Pulse Ox (%) 98 Pulse Rate (60-100 beats/min) 85 Full Laps Walked 15 Partial Lap, Number of Tiles Walked 10 Total Distance Walked (ft) 895 Interpretation Interpretation: The patient ambulated 895 feet over the course of 6 minutes beginning on room air without assistive devices. Pretesting oxygen saturation was noted to be 98% on room air. With ambulation, the rose oxygen saturation was 97%. There was no significant exertional oxygen desaturation. Recommendations Recommendations: There is no indication for the use of supplemental oxygen at this time.
== END | disposition home or self-care (01) ==
LOC: PSN 12:23
PROVIDERS: PCP Family Medicine; Referring Provider Internal Medicine Critical Care Medicine; Visit Provider Internal Medicine Critical Care Medicine
DX: J45.909 Unspecified asthma, uncomplicated (principal)
CPT/HCPCS: 94618

== ENCOUNTER → 2022-02-26 | Outpatient (CLI) | payer MEDICARE, OTHER, SELFPAY ==
[2022-02-26] MEDS: 0.9% NaCl IVPB Med Flush (250 mL) 15 ML IV (11:46)
[2022-02-26] MEDS: 0.9% NaCl Peripheral Flush Adult/Peds IV (11:46)
[2022-02-26 11:49] VITALS: BP 145/91; PULSE 69; RESP 16; O2SAT 97
[2022-02-26] MEDS: Sodium Ferric Gluconat 250 MG in 0.9% Normal Saline 250 ML 135 MG IV (11:49)
[2022-02-26 14:21] VITALS: BP 148/82; PULSE 70; RESP 16; O2SAT 100
== END | disposition home or self-care (01) ==
LOC: MEDOUTP 11:20
PROVIDERS: PCP Family Medicine; Referring Provider Family Medicine; Visit Provider Family Medicine
DX: D50.9 Iron deficiency anemia, unspecified (principal)
CPT/HCPCS: 96365; 96366; J7050; A4216; J2916

== ENCOUNTER → 2022-03-12 | Outpatient (CLI) | payer MEDICARE, OTHER, SELFPAY ==
[2022-03-12 08:05] VITALS: BP 146/79; PULSE 73; RESP 16; TEMP 35.7; O2SAT 96
[2022-03-12] MEDS: 0.9% NaCl Peripheral Flush Adult/Peds IV (08:27)
[2022-03-12] MEDS: 0.9% NaCl IVPB Med Flush (250 mL) 15 ML IV (08:27)
[2022-03-12] MEDS: Sodium Ferric Gluconat 250 MG in 0.9% Normal Saline 250 ML 135 MG IV (08:27)
[2022-03-12 11:07] VITALS: BP 149/76; PULSE 63; RESP 16; O2SAT 99
== END | disposition home or self-care (01) ==
LOC: MEDOUTP 07:48
PROVIDERS: PCP Family Medicine; Referring Provider Family Medicine; Visit Provider Family Medicine
DX: D50.9 Iron deficiency anemia, unspecified (principal)
CPT/HCPCS: 96365; 96366; J7050; A4216; J2916

== ENCOUNTER → 2022-03-26 | Outpatient (CLI) | payer MEDICARE, OTHER, SELFPAY ==
[2022-03-26 08:07] VITALS: BP 132/75; PULSE 76; RESP 14; TEMP 36.5; O2SAT 97; BMI 68.1
[2022-03-26] MEDS: 0.9% NaCl Peripheral Flush Adult/Peds IV (08:21)
[2022-03-26] MEDS: Sodium Ferric Gluconat 250 MG in 0.9% Normal Saline 250 ML 135 MG IV (08:26)
[2022-03-26] MEDS: 0.9% NaCl IVPB Med Flush (250 mL) 15 ML IV (08:26)
[2022-03-26 11:05] VITALS: BP 132/73; PULSE 63; RESP 14; TEMP 36.9
== END | disposition home or self-care (01) ==
LOC: MEDOUTP 07:58
PROVIDERS: PCP Family Medicine; Referring Provider Family Medicine; Visit Provider Family Medicine
DX: D50.9 Iron deficiency anemia, unspecified (principal)
CPT/HCPCS: 96365; 96366; J7050; A4216; J2916

== ENCOUNTER → 2022-04-16 | Outpatient (CLI) | payer MEDICARE, OTHER, SELFPAY ==
[2022-04-16] MEDS: 0.9% NaCl Peripheral Flush Adult/Peds IV (08:38)
[2022-04-16 08:39] VITALS: BP 133/69; PULSE 75; RESP 16; TEMP 35.8; O2SAT 94
[2022-04-16] MEDS: 0.9% NaCl IVPB Med Flush (250 mL) 15 ML IV (08:44)
[2022-04-16] MEDS: Sodium Ferric Gluconat 250 MG in 0.9% Normal Saline 250 ML 135 MG IV (08:55)
[2022-04-16 11:24] VITALS: BP 132/65; PULSE 72
[2022-04-16 11:26] LABS: Hematocrit 36.2 % (37-47); Hemoglobin 11.7 g/dL (12.0-15.0); Mean Corp Hgb Conc 32.3 g/dL (32-36); Mean Corpuscular Hgb 27.2 pg (27.0-32.0); Mean Corpuscular Volume 84.2 fL (81-99); Mean Platelet Vol. 10.5 fl (6.2-12.0); Platelet Count 244 K/mm3 (150-450); RBC Distribution Width SD 52.5 fl (35.1-43.9)
[2022-04-16 11:43] LABS: Ferritin 152 ng/mL (8-252); Iron 417 ug/dL (50-170)
== END | disposition home or self-care (01) ==
LOC: MEDOUTP 08:23
PROVIDERS: PCP Family Medicine; Referring Provider Family Medicine; Visit Provider Family Medicine
DX: D50.9 Iron deficiency anemia, unspecified (principal)
CPT/HCPCS: 96365; 96366; 36415; 82728; 83540; 85027; J7050; A4216; J2916

== ENCOUNTER → 2022-06-29 | Outpatient (CLI) | payer MEDICARE, OTHER, SELFPAY ==
--- NOTE | 2022-06-29 08:32 | BD_ITS ---
STUDY: DUAL ENERGY X-RAY ABSORPTIOMETRY / DXA REASON FOR EXAM: Female, 67 years old. M810. Patient is postmenopausal. TECHNIQUE: Bone Mineral Density (BMD) measurements of lumbar spine and bilateral hips were obtained. COMPARISON: Comparison is made with prior study dated 04/13/2016. FINDINGS: Lumbar Spine (L1-L4): g/cm2 (0.846) / T-score (-1.8) / Z-score (0.1) Findings are suggestive of osteopenia with a moderate fracture risk. Left Femur Total: g/cm2 (0.828) / T-score (-0.9) / Z-score (0.4) Left Femoral Neck: g/cm2 (0.633) / T-score (-1.9) / Z-score (-0.3) Right Femur Total: g/cm2 (0.753) / T-score (-1.5) / Z-score (-0.2) Right Femoral Neck: g/cm2 (0.583) / T-score (-2.4) / Z-score (-0.8) The T-Scores on the most recent prior examination were: Lumbar Spine (L1-L4): There has been worsening of bone density since the previous examination. Left Femur Total: which represents an improvement of 1.6%. Right Femur Total: which represents a worsening of 2.4%. BD/Dexa Bone Density Study IMPRESSION: The patient is considered osteopenic as outlined below according to World [place] Organization (WHO) criteria with a high fracture risk. There has been worsening of bone density since the previous examination. Reference Information: The T-score is the number of standard deviations above or below the standard which is normal for young adults at their peak bone mineral density. The World Health Organization (WHO) interprets the T-scores as follows: Above -1 Normal bone density Between -1 and -2.5 Osteopenia Equal to / or below -2.5 Osteoporosis As a practical clinical guideline, osteopenia may be graded as follows: Mild -1 through -1.5 Moderate -1.6 through -2.0 Severe -2.1 through -2.4 The Z-score is the number of standard deviations above or below age-matched controls. A Z-score of less than -1.5 would be considered abnormal. References: 1. NIH Osteoporosis and Related Bone Diseases www osteo.org 2. International Society for Clinical Densitometry www iscd.org 3. National Osteoporosis Foundation www nof.org Electronically Signed: George Sheikh MD at 10:15 EDT ,
== END | disposition home or self-care (01) ==
LOC: OPBD 08:26
PROVIDERS: PCP Family Medicine; Visit Provider Family Medicine
DX: M81.0 Age-related osteoporosis without current pathological fracture (principal)
CPT/HCPCS: 77080

== ENCOUNTER → 2022-07-09 | Outpatient (CLI) | payer MEDICARE, OTHER, SELFPAY ==
[2022-07-09 10:04] LABS: Absolute Lymphocyte Count 2.14 X10^3/uL (0.83-4.51); Absolute Neutrophil Count 3.5 X10^3/uL (2.0-7.7); Basophil# 0.07 X10^3/uL; Basophil% 1.1 % (0-1); Eosinophils% 3.1 % (0-5); Hematocrit 39.8 % (37-47); Hemoglobin 13.1 g/dL (12.0-15.0); Lymphocyte # 2.14 X10^3/ul (0.83-4.51); Lymphocyte % 33.2 % (19-41); Mean Corp Hgb Conc 32.9 g/dL (32-36); Mean Corpuscular Hgb 28.2 pg (27.0-32.0); Mean Corpuscular Volume 85.6 fL (81-99); Mean Platelet Vol. 10.6 fl (6.2-12.0); Monocyte# 0.57 X10^3/uL; Monocyte% 8.8 % (0-10); NRBC Flagged by Analyzer 0 % (0-5); Neutrophil # 3.45 X10^3/uL (2.7-7.7); Neutrophil % 53.5 % (47-70); Platelet Count 256 K/mm3 (150-450); RBC Distribution Width CV 12.9 % (11.6-14.6); RBC Distribution Width SD 39.8 fl (35.1-43.9); Red Blood Count 4.65 M/mm3 (4.2-5.4); White Blood Count 6.5 K/mm3 (4.4-11.0)
[2022-07-09 10:17] LABS: Vitamin B12 614 pg/mL (211-911); Vitamin D,25 Hydroxy 34.8 ng/mL
[2022-07-09 10:43] LABS: AST(SGOT) 21 U/L (15-37); Alanine Aminotransfer ALT/SGPT 31 U/L (13-56); Albumin, Serum 3.4 g/dL (3.2-5.0); Alkaline Phosphatase 119 U/L (45-117); Anion Gap 9 (5-15); BUN 17 mg/dL (7-18); BUN/Creat Ratio 19.9 RATIO (10-20); Calcium,Total 9.1 mg/dL (8.5-10.1); Chloride 105 mmol/L (98-107); Cholesterol 219 mg/dL (200); Creatinine, Serum 0.85 mg/dL (0.55-1.02); EST Glomerular Filtration Rate 71 mL/min (>60); Est Glom Filt Rate - Afr Amer 85 mL/min (>60); Ferritin 99 ng/mL (8-252); Globulin 3.4 g/dL (2.2-4.2); Glucose 102 mg/dL (74-106); High Density Lipoprotein 54 mg/dL; Iron 85 ug/dL (50-170); Protein, Total 6.8 g/dL (6.4-8.2); Sodium Level 139 mmol/L (136-145); Triglycerides 198 mg/dL; Very Low Density Lipoprotein 40 mg/dL (5-40)
== END | disposition home or self-care (01) ==
LOC: MTLAB 07:10
PROVIDERS: PCP Family Medicine; Referring Provider Family Medicine; Visit Provider Family Medicine
DX: D50.9 Iron deficiency anemia, unspecified (principal); E11.9 Type 2 diabetes mellitus without complications; E78.5 Hyperlipidemia, unspecified; E55.9 Vitamin D deficiency, unspecified; R25.2 Cramp and spasm; Z51.81 Encounter for therapeutic drug level monitoring
CPT/HCPCS: 36415; 80053; 80061; 82306; 82607; 82728; 83540; 83735; 85025

== ENCOUNTER → 2022-09-03 | Outpatient (CLI) | payer MEDICARE, OTHER, SELFPAY ==
[2022-09-03 08:14] LABS: Absolute Lymphocyte Count 2.55 X10^3/uL (0.83-4.51); Absolute Neutrophil Count 3.5 X10^3/uL (2.0-7.7); Basophil# 0.09 X10^3/uL; Basophil% 1.3 % (0-1); Eosinophil# 0.22 X10^3/uL; Eosinophils% 3.2 % (0-5); Hematocrit 43.4 % (37-47); Hemoglobin 14.7 g/dL (12.0-15.0); Lymphocyte # 2.55 X10^3/ul (0.83-4.51); Lymphocyte % 37.2 % (19-41); Mean Corp Hgb Conc 33.9 g/dL (32-36); Mean Corpuscular Hgb 28.6 pg (27.0-32.0); Mean Corpuscular Volume 84.4 fL (81-99); Mean Platelet Vol. 10.4 fl (6.2-12.0); Monocyte# 0.52 X10^3/uL; Monocyte% 7.6 % (0-10); NRBC Flagged by Analyzer 0 % (0-5); Neutrophil # 3.46 X10^3/uL (2.7-7.7); Neutrophil % 50.4 % (47-70); Platelet Count 276 K/mm3 (150-450); RBC Distribution Width CV 12.8 % (11.6-14.6); RBC Distribution Width SD 39.5 fl (35.1-43.9); Red Blood Count 5.14 M/mm3 (4.2-5.4); White Blood Count 6.9 K/mm3 (4.4-11.0)
[2022-09-03 08:18] LABS: Erythrocyte Sedimentation Rate 7 mm/hr (0-30)
[2022-09-03 08:45] LABS: Hemoglobin A1c 5.9 % (3.8-5.6)
[2022-09-03 08:52] LABS: AST(SGOT) 16 U/L (15-37); Alanine Aminotransfer ALT/SGPT 22 U/L (13-56); Albumin, Serum 3.6 g/dL (3.2-5.0); Alkaline Phosphatase 118 U/L (45-117); Anion Gap 7 (5-15); BUN 17 mg/dL (7-18); BUN/Creat Ratio 19.1 RATIO (10-20); CRP 4.32 mg/L (0.0-3.0); Calcium,Total 9.1 mg/dL (8.5-10.1); Chloride 106 mmol/L (98-107); Creatinine, Serum 0.89 mg/dL (0.55-1.02); EST Glomerular Filtration Rate 67 mL/min (>60); Est Glom Filt Rate - Afr Amer 81 mL/min (>60); Ferritin 72 ng/mL (8-252); Free T3 2.5 pg/mL (2.18-3.98); Globulin 3.5 g/dL (2.2-4.2); Glucose 115 mg/dL (74-106); Iron 77 ug/dL (50-170); Potassium 4.1 mmol/L (3.5-5.1); Protein, Total 7.1 g/dL (6.4-8.2); Sodium Level 138 mmol/L (136-145); T4 Free Direct 0.96 ng/dL (0.76-1.46); Thyroid Stim Hormone (TSH) 1.18 uIU/mL (0.358-3.74)
[2022-09-03 09:11] LABS: Vitamin B12 836 pg/mL (211-911); Vitamin D,25 Hydroxy 47.4 ng/mL
== END | disposition home or self-care (01) ==
LOC: LAB 07:46
PROVIDERS: PCP Family Medicine; Referring Provider Family Medicine; Visit Provider Family Medicine
DX: R53.83 Other fatigue (principal); E11.9 Type 2 diabetes mellitus without complications; D50.9 Iron deficiency anemia, unspecified; E53.8 Deficiency of other specified B group vitamins; E55.9 Vitamin D deficiency, unspecified; M25.50 Pain in unspecified joint; Z51.81 Encounter for therapeutic drug level monitoring
CPT/HCPCS: 36415; 80053; 82306; 82607; 82728; 83036; 83540; 84439; 84443; 84481; 85025; 85652; 86140

== ENCOUNTER → 2022-10-06 | Outpatient (CLI) | payer MEDICARE, OTHER, SELFPAY ==
--- NOTE | 2022-10-06 07:29 | BI_ITS ---
MAMMOGRAPHY - BILATERAL SCREENING REASON FOR EXAM: Female, 67 years old. Routine annual screening examination. PERTINENT HISTORY: Non-contributory. TECHNIQUE: Digital bilateral breast jonh (3D mammographic acquisition) in the CC and MLO projections. 2-D mediolateral oblique (MLO) and craniocaudad (CC) views of both breasts were obtained. CAD: Full Field Digital Mammography with Computer Added Detection was performed. COMPARISON: Comparison is made with prior study 08/24/2021 and 08/21/2020. FINDINGS: Breast Composition: The breasts are heterogeneously dense, which may obscure small masses. There are no dominant masses or suspicious calcifications. Stable 7 mm well-defined nodule in the deep midportion of the right breast. No other significant abnormalities are identified. There has been no significant change since the prior study. BI/SCRN MAMM (CAD)W/JONH BILAT IMPRESSION: Stable bilateral screening mammogram. Yearly follow-up mammogram recommended. (A) ASSESSMENT CATEGORY: BIRADS Category 2: Benign. A letter regarding these results will be sent to the patient by the facility within 30 days. Approximately 10% of breast cancers are not detected by mammography. A normal mammogram should not delay biopsy of a clinically suspicious abnormality. [id number] Electronically Signed: George Sheikh MD at 9:46 EST ,
== END | disposition home or self-care (01) ==
LOC: OPBI 07:27
PROVIDERS: PCP Family Medicine; Visit Provider Obstetrics & Gynecology
DX: Z12.31 Encounter for screening mammogram for malignant neoplasm of breast (principal)
CPT/HCPCS: 77063; 77067

== ENCOUNTER → 2022-11-04 | Outpatient (CLI) | payer MEDICARE, OTHER, SELFPAY | END | disposition home or self-care (01) | LOC: BFHLAB 10:43 → LABSPEC 10:44 | PROVIDERS: PCP Family Medicine; Visit Provider Family Medicine | DX: Z20.828 Contact with and (suspected) exposure to other viral communicable diseases (principal) | CPT/HCPCS: 87635; U0003; U0005 ==

== ENCOUNTER → 2022-12-23 | Outpatient (CLI) | payer MEDICARE, OTHER, SELFPAY ==
[2022-12-23 17:47] LABS: Absolute Lymphocyte Count 2.61 X10^3/uL (0.83-4.51); Absolute Neutrophil Count 4.5 X10^3/uL (2.0-7.7); Basophil# 0.11 X10^3/uL; Basophil% 1.4 % (0-1); Eosinophil# 0.24 X10^3/uL; Hematocrit 44.7 % (37-47); Hemoglobin 14.8 g/dL (12.0-15.0); Lymphocyte # 2.61 X10^3/ul (0.83-4.51); Lymphocyte % 32.3 % (19-41); Mean Corp Hgb Conc 33.1 g/dL (32-36); Mean Corpuscular Hgb 28.1 pg (27.0-32.0); Mean Corpuscular Volume 84.8 fL (81-99); Mean Platelet Vol. 11.3 fl (6.2-12.0); Monocyte# 0.59 X10^3/uL; Monocyte% 7.3 % (0-10); NRBC Flagged by Analyzer 0 % (0-5); Neutrophil # 4.52 X10^3/uL (2.7-7.7); Neutrophil % 55.8 % (47-70); Platelet Count 304 K/mm3 (150-450); RBC Distribution Width CV 12.8 % (11.6-14.6); RBC Distribution Width SD 39.3 fl (35.1-43.9); Red Blood Count 5.27 M/mm3 (4.2-5.4); White Blood Count 8.1 K/mm3 (4.4-11.0)
[2022-12-23 17:48] LABS: Color, Urine Yellow (Yellow); Glucose, Dipstick Normal (Normal); Ketone-Dipstick Negative (Negative); Leukocyte Esterase-Dipstick 100 /ul (Negative); Nitrite-Dipstick Negative (Negative); Occult Blood-Urine 10 /ul (Negative); Protein-Dipstick Negative (Negative); Specific Gravity, Urine 1.015 (1.002-1.030); Urine Bilirubin Dipstick Negative (Negative); Urine Clarity Clear (Clear); Urine Urobilinogen Normal (Normal)
[2022-12-23 18:04] LABS: Vitamin B12 690 pg/mL (211-911)
[2022-12-23 18:32] LABS: ALB/GLOB Ratio 1.1 RATIO (0.9-2.4); AST(SGOT) 19 U/L (15-37); Alanine Aminotransfer ALT/SGPT 23 U/L (13-56); Albumin, Serum 4.1 g/dL (3.2-5.0); Alkaline Phosphatase 127 U/L (45-117); Anion Gap 8 (5-15); BUN 13 mg/dL (7-18); BUN/Creat Ratio 14.3 RATIO (10-20); Calcium,Total 9.5 mg/dL (8.5-10.1); Chloride 100 mmol/L (98-107); Creatinine, Serum 0.91 mg/dL (0.55-1.02); EST Glomerular Filtration Rate 66 mL/min (>60); Est Glom Filt Rate - Afr Amer 79 mL/min (>60); Globulin 3.6 g/dL (2.2-4.2); Glucose 123 mg/dL (74-106); Potassium 3.4 mmol/L (3.5-5.1); Protein, Total 7.7 g/dL (6.4-8.2); Sodium Level 137 mmol/L (136-145); Thyroid Stim Hormone (TSH) 1.03 uIU/mL (0.358-3.74)
== END | disposition home or self-care (01) ==
LOC: BFHLAB 14:49
PROVIDERS: PCP Family Medicine; Visit Provider Family Medicine
DX: I10 Essential (primary) hypertension (principal); E53.8 Deficiency of other specified B group vitamins
CPT/HCPCS: 36415; 80053; 81002; 82607; 84443; 85025

== ENCOUNTER → 2023-01-01 | Outpatient (CLI) | payer MEDICARE, OTHER, SELFPAY ==
--- NOTE | 2023-01-01 11:00 | US_ITS ---
PROCEDURE: ABDOMINAL ULTRASOUND, RIGHT UPPER QUADRANT COMPARISONS: None. CLINICAL INDICATION: ABN LFTS TECHNIQUE: Real-time gonzales-scale abdominal ultrasound. Limited color Doppler evaluation is performed. FINDINGS: Liver: Normal size with diffusely increased echotexture. Appropriate hepatopetal flow is present in the main portal vein. Gallbladder: Normal wall thickness. No gallstones. Sonographic Erickson''s sign is absent. No pericholecystic fluid is present. Biliary Tree: Nondilated. Common bile duct measures 5 mm. Pancreas: Limited evaluation of the head and body is unremarkable. Right kidney: Normal in size and echogenicity. No hydronephrosis or stones. The right kidney measures 9.8 cm in long axis. No free fluid. US/Abdomen Limited IMPRESSION: Diffuse fatty infiltration of the liver. No acute findings in the right upper quadrant. Electronically Signed: Jareth Ferris MD at 19:27 EST ,
== END | disposition home or self-care (01) ==
LOC: US 10:36
PROVIDERS: PCP Family Medicine; Visit Provider Family Medicine
DX: K76.0 Fatty (change of) liver, not elsewhere classified (principal)
CPT/HCPCS: 76705

== ENCOUNTER → 2023-07-25 | Outpatient (CLI) | payer MEDICARE, OTHER, SELFPAY ==
[2023-07-25 12:09] LABS: Absolute Lymphocyte Count 2.08 X10^3/uL (0.83-4.51); Absolute Neutrophil Count 3.5 X10^3/uL (2.0-7.7); Basophil# 0.08 X10^3/uL; Basophil% 1.3 % (0-1); Eosinophils% 1.6 % (0-5); Hematocrit 40.6 % (37-47); Hemoglobin 13.5 g/dL (12.0-15.0); Lymphocyte # 2.08 X10^3/ul (0.83-4.51); Lymphocyte % 33.5 % (19-41); Mean Corp Hgb Conc 33.3 g/dL (32-36); Mean Corpuscular Hgb 28.9 pg (27.0-32.0); Mean Corpuscular Volume 86.9 fL (81-99); Mean Platelet Vol. 10.6 fl (6.2-12.0); Monocyte# 0.49 X10^3/uL; Monocyte% 7.9 % (0-10); NRBC Flagged by Analyzer 0 % (0-5); Neutrophil # 3.45 X10^3/uL (2.7-7.7); Neutrophil % 55.5 % (47-70); Platelet Count 304 K/mm3 (150-450); RBC Distribution Width CV 12.9 % (11.6-14.6); RBC Distribution Width SD 40.5 fl (35.1-43.9); Red Blood Count 4.67 M/mm3 (4.2-5.4); White Blood Count 6.2 K/mm3 (4.4-11.0)
[2023-07-25 12:40] LABS: Vitamin B12 1542 pg/mL (211-911)
[2023-07-25 12:47] LABS: AST(SGOT) 23 U/L (15-37); Alanine Aminotransfer ALT/SGPT 26 U/L (13-56); Albumin, Serum 3.9 g/dL (3.2-5.0); Alkaline Phosphatase 95 U/L (45-117); Anion Gap 9 (5-15); BUN 15 mg/dL (7-18); BUN/Creat Ratio 14.3 RATIO (10-20); Bilirubin, Direct 0.19 mg/dL (0.00-0.30); Calcium,Total 9.2 mg/dL (8.5-10.1); Chloride 103 mmol/L (98-107); Creatinine, Serum 1.05 mg/dL (0.55-1.02); EST Glomerular Filtration Rate 55 mL/min (>60); Est Glom Filt Rate - Afr Amer 67 mL/min (>60); Globulin 3.5 g/dL (2.2-4.2); Glucose 107 mg/dL (74-106); Potassium 3.4 mmol/L (3.5-5.1); Protein, Total 7.4 g/dL (6.4-8.2); Sodium Level 137 mmol/L (136-145); Thyroid Stim Hormone (TSH) 0.87 uIU/mL (0.358-3.74)
== END | disposition home or self-care (01) ==
LOC: BFHLAB 10:58
PROVIDERS: PCP Family Medicine; Referring Provider Family Medicine; Visit Provider Family Medicine
DX: E11.9 Type 2 diabetes mellitus without complications (principal); R53.83 Other fatigue; E53.8 Deficiency of other specified B group vitamins; Z51.81 Encounter for therapeutic drug level monitoring
CPT/HCPCS: 36415; 80048; 80076; 82607; 84443; 85025

== ENCOUNTER → 2023-11-23 | Outpatient (CLI) | payer MEDICARE, OTHER, SELFPAY ==
--- NOTE | 2023-11-23 07:34 | BI_ITS ---
MAMMOGRAPHY - BILATERAL SCREENING REASON FOR EXAM: Female, 68 years old. Routine annual screening examination. PERTINENT HISTORY: Non-contributory. TECHNIQUE: Digital bilateral breast john (3D mammographic acquisition) in the CC and MLO projections. 2-D mediolateral oblique (MLO) and craniocaudad (CC) views of both breasts were obtained. CAD: Full Field Digital Mammography with Computer Added Detection was performed. COMPARISON: Comparison is made with prior study dated October 06, 2022 and August 24, 2021. FINDINGS: Breast Composition: There are scattered areas of fibroglandular density. There are no dominant masses or suspicious calcifications. Stable 7 mm well-defined nodule in the deep midportion of the right breast. No other significant abnormalities are identified. There has been no significant change since the prior study. BI/SCRN MAMM (CAD)W/JONH BILAT IMPRESSION: Stable bilateral screening mammogram. Yearly follow-up mammogram recommended. (A) ASSESSMENT CATEGORY: BIRADS Category 2: Benign. A letter regarding these results will be sent to the patient by the facility within 30 days. Approximately 10% of breast cancers are not detected by mammography. A normal mammogram should not delay biopsy of a clinically suspicious abnormality. [id number] Electronically Signed: George Sheikh MD at 16:02 EST ,
--- OUTSIDE RECORDS SUMMARY | 2023-11-23 07:41 | XMS RPT_ITS | CCD ---
Author Name Unknown Address [address] [place] [address] Organization [facility] Care Team Providers Care Speech And Language Tutor Name Role Phone Shweta Sosa DO Unavailable Shweta Sosa DO Primary Care Provider [phone] MAKAYLA GASPAR Attending Unavailable SHWETA SOSA Primary Care Unavailable Allergies Allergy Classification Reported Allergen(s) Allergy Type Date of Onset Reaction(s) Facility (2 sources) Morphine; Translations: [MORPHINE] Drug Allergy 08-07-2009 Hives [facility] Work Phone: (2 sources) Penicillins; Translations: [PENICILLINS] Propensity to adverse reactions 03-14-2006 Rash [facility] Work Phone: Medications Completed/Discontinued Medications Medication Drug Class(es) Dates Sig (Normalized) Sig (Original) [id number] 200 actuat albuterol 0.09 mg/actuat metered dose inhaler (2 sources) beta2-Adrenergic Agonist Start: 08-19-2016 albuterol HFA (VENTOLIN HFA) 90 mcg/actuation inhaler As directed 1 g 3 08/19/2016 Active Problems Active Problems Problem Classification Problem Date Documented Date Episodic/Chronic Asthma (1 source) Mild persistent asthma; Translations: [Mild persistent asthma, uncomplicated] Onset: 06-20-2008 10-19-2021 Chronic Diverticulosis and diverticulitis (1 source) Diverticulosis of colon; Translations: [Diverticulosis of large intestine without perforation or abscess without bleeding] Onset: 08-23-2013 08-23-2013 Chronic Esophageal disorders (2 sources) Gastroesophageal reflux disease; Translations: [Gastro-esophageal reflux disease without esophagitis] Onset: 06-20-2008 06-20-2008 Chronic Genitourinary symptoms and ill-defined conditions (1 source) Incontinence; Translations: [Mixed incontinence] 09-28-2023 Chronic Mood disorders (1 source) Depressive disorder; Translations: [Other specified depressive episodes] Onset: 06-20-2008 06-20-2008 Chronic Other screening for suspected conditions (not mental disorders or infectious disease) (1 source) Patient encounter status; Translations: [Encounter for screening mammogram for malignant neoplasm of breast] 09-28-2023 Episodic Past or Other Problems Problem Classification Problem Date Documented Da te Episodic/Chronic Headache; including migraine (1 source) Headache; Translations: [Headache] Onset: 06-20-2008 06-20-2008 Episodic Nonspecific chest pain (1 source) Chest pain; Translations: [Other chest pain] Onset: 06-20-2008 06-20-2008 Episodic Other connective tissue disease (1 source) Muscle pain; Translations: [Myalgia and myositis, unspecified] Onset: 06-20-2008 06-20-2008 Episodic Other non-traumatic joint disorders (1 source) Multiple joint pain; Translations: [Pain in unspecified joint] Onset: 06-20-2008 06-20-2008 Episodic Residual codes; unclassified (1 source) Insomnia; Translations: [Insomnia, unspecified] Onset: 06-20-2008 06-20-2008 Episodic Results Test Name Value Interpretation Reference Range Facil ity Vital Signs Date Time Vital Sign Value Performing Clinician Cyrus curry 09-28-2023 08:51-0500 Body weight 83.46 kg Makayla Gaspar MD Work Phone: [facility] 09-28-2023 08:51-0500 Diastolic blood pressure 78 mm[Hg] Makayla Gaspar MD Work Phone: [facility] 09-28-2023 08:51-0500 Systolic blood pressure 132 mm[Hg] Makayla Gaspar MD Work Phone: [facility] Encounters Encounter Date Encounter Type Care Provider Facility Start: 09-28-2023 End: 09-28-2023 ambulatory MAKAYLA GASPAR Facility:[facility] Start: 09-28-2023 End: 09-28-2023 Patient encounter procedure Makayla Gaspar MD Work Phone: OB/Gynecology Procedures Date Procedure Procedure Detail Performing Clinician Start: 06-02-2020 Colonoscopy Makayla lni MD Work Phone: Start: 01-01-2012 Lipid 1996 panel - S sujit or Plasma Makayla Gaspar MD Work Phone: Plan of Treatment Date Care Activity Detail Author Start: 06-02-2030 Colonoscopy Colonoscopy [facility] Start: 06-02-2030 Colorectal Cancer Screening Colorectal Cancer Screening [facility] Start: 01-31-2025 Diabetes Screening Diabetes Screenin g [facility] Start: 10-06-2023 Mammography Mammogram Screening [facility] Start: 06-24-2023 Influenza vaccination Influenza Vacc ine (#1) [facility] Start: 10-24-2022 Advance Directive Discussion Advance Directive Discussion [facility] Start: 2020 Bone Density Screening Bone Density Screening [facility] Start: 06-20-2018 Urine microalbumin profile DTa P,Tdap,Td Vaccine (2 - Td or Tdap) [facility] Start: 12-31-2016 Lipid 1996 panel - S sujit or Plasma Lipid Screening [facility] Start: 2015 RSV Vaccine (1 - 1-d ose 60+ series) RSV Vaccine (1 - 1-dose 60+ series) [facility] Start: 08-24-2011 Pneumococcal Vaccine : 65+ (2 - PCV) Pneumococcal Vaccine: 65+ (2 - PCV) [facility] Start: 2005 Shingrix Vaccine (1 of 2) Shingrix V accine (1 of 2) [facility] Start: 2000 Cologuard (FIT-DNA) Cologuard (FIT-D NA) [facility] Start: [address] Colonography [facility] Start: 2000 Fecal Occult Blood Fecal Occult Bloo d [facility] Start: 2000 Sigmoidoscopy Sigmoidoscopy [facility] Start: 1973 Annual PCP Team Multimedia Artist ciera Disease Visit Annual PCP Team Chronic Disease Visit [facility] Start: 1973 Hepatitis C Screening Hepatitis C Chay garvey [facility] Start: 1973 Spirometry Spirometry [facility] Start: 1955 Covid-19 Vaccine (#1) Covid-19 Vacci ne (#1) [facility] Immunizations Immunization Date Immunization Notes Care Provider Fa cility 07-30-2019 influenza virus vacc ine, unspecified formulation Makayla Gaspar MD Work Phone: [facility] 09-03-2008 influenza virus vacc ine, unspecified formulation Makayla Gaspar MD Work Phone: [facility] Work Phone: 09-03-2008 pneumococcal polysaccharide vaccine, 23 valent Makayla Gaspar MD Work Phone: [facility] Work Phone: 06-20-2008 tetanus toxoid, redu ophelia diphtheria toxoid, and acellular pertussis vaccine, adsorbed Makayla Gaspar MD Work Phone: [facility] Payers Date Payer Category Payer Medicare [id number] 2021 Unknown MMO MMO MEDICARE SUPPLEMENT [id number] 2021-Present [phone] [address] [place] [address] Indemnity [id number] 2020 Medicare MEDICARE MEDICAR E A AND B [id number] 2020-Present [phone] [address] [address] [place] [address] Medicare [id number] 2020 Medicare [id number] Social History Date Type Detail [facility] Start: 09-28-2023 Alcohol intake Current non-dr ball shagger of alcohol (finding) [facility] Start: 09-28-2023 History of Social function [facility] Start: 09-28-2023 Tobacco use panel [facility] National Score (1-10 0), lower number is lower risk 48 [facility] Start: 1955 Sex Assigned At Female C [facility] Start: 05-28-2020 Gender identity Identifies as female gender (finding) [facility] Progress note 09-28-2023 Note Date & Type Note Facility 12-06-2023 Note HNO ID: [id number] Author: Makayla Gaspar MD Service: ? Author Type: Physician Type: Progress Notes Filed: 09/28/2023 9:06 AM Note Text: Kat is a 68 year old who presents for an annual gynecologic exam with complaints, gets up 2-3 times a night. Feels like bladder doesn't empty,. . Postmenopausal: yes HRT use: No. Last Pap: 05/02/2020 normal HPV: 05/05/2020 negative History of abnormal pap: No Last mammogram: 2021 normal Sexually active: Yes OB History T1 L1 SAB0 IAB0 Ectopic0 Multiple0 Live Births0 Packer And Carry Out History LMP: Postmenopausal Age at Menarche: Age at First : Age at Menopause: Packer And Carry Out History Comments: Sexual Activity: Not Currently; No partner data on record Contraception: No contraception data on record PAST MEDICAL HISTORY Diagnosis Date Adjustment disorder with depressed mood When in 2002 Diabetes mellitus (HCC) Diaphragmatic hernia without mention of obstruction or gangrene 1995 Diverticulosis Hypertension Polymyalgia rheumatica (HCC) Not dx by social work nurse Unspecified asthma(493.90) 1986 Since late 20s PAST SURGICAL HISTORY Procedure Laterality Date APPENDECTOMY 1988 CATARACT EXTRACTION HX Bilateral 10/2019,03/2019 COLONOSCOPY 2000 COLONOSCOPY FLX DX W/COLLJ SPEC WHEN PFRMD 09/26/13 Colonoscopy COLONOSCOPY FLX DX W/COLLJ SPEC WHEN PFRMD 06/02/2020 Colonoscopy ESOPHAGOGASTRODUODENOSCOPY TRANSORAL DIAGNOSTIC 09/26/13 EGD ESOPHAGOGASTRODUODENOSCOPY TRANSORAL DIAGNOSTIC 06/02/2020 EGD PAST SURGICAL HISTORY OF 1999 knee arthroscopy PAST SURGICAL HISTORY OF 1991 uterine suspension PAST SURGICAL HISTORY OF July 2010 Meniscus Repair (Left) FAMILY HISTORY Problem Relation Age of Onset Coronary Artery Disease Mother MA 59 CABG Coronary Artery Disease Father MA 70s Diabetes Paternal Grandmother COPD Sister Heart Attack Brother 71 Diabetes Brother SOCIAL HISTORY Social History Tobacco Use Smoking status: Never Smokeless tobacco: Never Vaping Use Vaping Use: Never used Substance Use Topics Alcohol use: No Drug use: No REVIEW OF SYSTEMS Abdomen: No abdominal pain, nausea, vomiting, diarrhea, or constipation. No bloating, early satiety, indigestion, or increased flatulence. Bladder: No dysuria, gross hematuria, urinary frequency, urinary urgency, or incontinence Breast: No breast lumps, nipple d/c, overlying skin changes, redness or skin retraction Allergies and current medication updated:Yes EXAM: BP 132/78 Wt 184 lb (83.5kg) GENERAL: pleasant, female in no apparent distress HEENT: Normocephalic, atraumatic, mucus membranes moist, and no lesions NECK: Supple, full range of motion, no adenopathy, and thyroid normal DERMATOLOGY: Normal, without lesions, non-icteric, and non-hirsute BREAST: soft, non-tender, symmetric, no dominant mass, normal nipple-areolar complex, no lymphadenopathy, and no nipple discharge CHEST: Normal inspiratory effort ABDOMEN: soft, non-tender, and no masses PELVIC: external genitalia normal, normal Bartholin's glands, urethra, Little Elm's glands, no vulvar lesions, no cervical lesions, physiologic discharge present, normal appearing perineal body and perianal region, cystocele 1st degree, cervical prolapse 1st degree BIMANUAL: uterus normal size, shape and consistency, no adnexal masses, and non-tender RECTOVAGINAL: deferred. NEURO: alert and oriented x3,exam grossly non-focal EXTREMITIES: normal ASSESSMENT/PLAN: 1) Health maintenance: Pap/HPV screening no longer needed Mammogram ordered 2) Follow up one year or sooner as needed consult urogyn due to mixed incontinence Makayla Gaspar MD [facility] History of Present illness Narrative 09-28-2023 Makayla Gaspar MD - 09/28/2023 8:42 AM EST Note Date & Type Note Facility 09-28-2023 History of Presen t illness Narrative Kat is a 68 year old who presents for an annual gynecologic exam with complaints, gets up 2-3 times a night. Feels like bladder doesn't empty,. . Postmenopausal: yes HRT use: No. Last Pap: 05/02/2020 normal HPV: 05/05/2020 negative History of abnormal pap: No Last mammogram: 2021 normal Sexually active: Yes OB History T1 L1 SAB0 IAB0 Ectopic0 Multiple0 Live Births0 Packer And Carry Out History LMP: Postmenopausal Age at Menarche: Age at First : Age at Menopause: Packer And Carry Out History Comments: Sexual Activity: Not Currently; No partner data on record Contraception: No contraception data on record PAST MEDICAL HISTORY Diagnosis Date Adjustment disorder with depressed mood When in 2002 Diabetes mellitus (HCC) Diaphragmatic hernia without mention of obstruction or gangrene 1995 Diverticulosis Hypertension Polymyalgia rheumatica (HCC) Not dx by social work nurse Unspecified asthma(493.90) 1986 Since late 20s PAST SURGICAL HISTORY Procedure Laterality Date APPENDECTOMY 1988 CATARACT EXTRACTION HX Bilateral 10/2019,03/2019 COLONOSCOPY 2000 COLONOSCOPY FLX DX W/COLLJ SPEC WHEN PFRMD 09/26/13 Colonoscopy COLONOSCOPY FLX DX W/COLLJ SPEC WHEN PFRMD 06/02/2020 Colonoscopy ESOPHAGOGASTRODUODENOSCOPY TRANSORAL DIAGNOSTIC 09/26/13 EGD ESOPHAGOGASTRODUODENOSCOPY TRANSORAL DIAGNOSTIC 06/02/2020 EGD PAST SURGICAL HISTORY OF 1999 knee arthroscopy PAST SURGICAL HISTORY OF 1991 uterine suspension PAST SURGICAL HISTORY OF July 2010 Meniscus Repair (Left) FAMILY HISTORY Problem Relation Age of Onset Coronary Artery Disease Mother MA 59 CABG Coronary Artery Disease Father MA 70s Diabetes Paternal Grandmother COPD Sister Heart Attack Brother 71 Diabetes Brother SOCIAL HISTORY Social History Tobacco Use Smoking status: Never Smokeless tobacco: Never Vaping Use Vaping Use: Never used Substance Use Topics Alcohol use: No Drug use: No REVIEW OF SYSTEMS Abdomen: No abdominal pain, nausea, vomiting, diarrhea, or constipation. No bloating, early satiety, indigestion, or increased flatulence. Bladder: No dysuria, gross hematuria, urinary frequency, urinary urgency, or incontinence Breast: No breast lumps, nipple d/c, overlying skin changes, redness or skin retraction Allergies and current medication updated:Yes EXAM: BP 132/78 Wt 184 lb (83.5kg) GENERAL: pleasant, female in no apparent distress HEENT: Normocephalic, atraumatic, mucus membranes moist, and no lesions NECK: Supple, full range of motion, no adenopathy, and thyroid normal DERMATOLOGY: Normal, without lesions, non-icteric, and non-hirsute BREAST: soft, non-tender, symmetric, no dominant mass, normal nipple-areolar complex, no lymphadenopathy, and no nipple discharge CHEST: Normal inspiratory effort ABDOMEN: soft, non-tender, and no masses PELVIC: external genitalia normal, normal Bartholin's glands, urethra, Little Elm's glands, no vulvar lesions, no cervical lesions, physiologic discharge present, normal appearing perineal body and perianal region, cystocele 1st degree, cervical prolapse 1st degree BIMANUAL: uterus normal size, shape and consistency, no adnexal masses, and non-tender RECTOVAGINAL: deferred. NEURO: alert and oriented x3,exam grossly non-focal EXTREMITIES: normal ASSESSMENT/PLAN: 1) Health maintenance: Pap/HPV screening no longer needed Mammogram ordered 2) Follow up one year or sooner as needed consult urogyn due to mixed incontinence Makayla Gaspar MD documented in this encounter [facility] Influenza virus A and B RNA and SARS-CoV-2 (COVID-19) N gene panel [facility] (Resp) 01-31-2022 Note Date & Type Note Facility 01-31-2022 Influenza virus A and B RNA and SARS-CoV-2 (COVID-19) N gene panel [facility] (Resp) COVID 19 RESULT: SARS-CoV-2 (Agent of COVID-19) Not Detected by RT-PCR or equivalent method. This test has been authorized by FDA under an Emergency Use Authorization (EUA). INFLUENZA A PCR: Negative for Influenza A by RT-PCR INFLUENZA B PCR: Negative for Influenza B by RT-PCR [facility] Evaluation note Note Date & Type Note Facility documented in this encounter [facility] Summary Purpose Family History No Family History Records FoundNo Family History Records Found Advance Directives No Advanced Directives Records FoundNo Advanced Directives Records Found Reason for Referral Specialty Diagnoses / Procedures Referred By Yu t Referred To Contact Diagnoses Mixed incontinence Procedures CONSULT TO URO GYNECOLOGY OFFICE/OUTPATIENT [facility] 60-74 MINUTES Makayla Gaspar MD [address] [place] [address] Referral ID Status Reason Start Date Expiration Date Visits Requested Visits Authorized [id number] Authorized PCP Requested Referral Auto-Generate d Referral 09/28/2023 12/27/2023 1 1 Additional Source Comments INFORMATION SOURCE (unrecogn ized section and content) DATE CREATED AUTHOR AUTHOR'S ORGANIZ ATION 09/30/2023 [facility] Source Comments (unrecognize d section and content) In the event this informatio n is protected by the Federal Confidentiality of Alcohol and Drug Abuse Patient Records regulations: The Federal rules restrict any use of the information to criminally investigate or prosecute any alcohol or drug abuse patient.[facility] Reason for Visit (unrecogniz ed section and content) Care Teams (unrecognized sec tion and content) FOR RECORDS PERTAINING TO PATIENTS WHO ARE OR HAVE BEEN ENROLLED IN A CHEMICAL DEPENDENCY/SUBSTANCEABUSE PROGRAM, SOME INFORMATION MAY BE OMITTED. This clinical summary was aggregated from multiple sources. Caution should be exercised in using it in the provision of clinical care. This summary normalizes information from multiple sources, and as a consequence, information in this document may materially change the coding, format and clinical context of patient data. In addition, data may be omitted in some cases. CLINICAL DECISIONS SHOULD BE BASED ON THE PRIMARY CLINICAL RECORDS. [facility]. provides no warranty or guarantee of the accuracy or completeness of information in this document.
== END | disposition home or self-care (01) ==
LOC: OPBI 07:33
PROVIDERS: PCP Family Medicine; Referring Provider Obstetrics & Gynecology; Visit Provider Obstetrics & Gynecology
DX: Z12.31 Encounter for screening mammogram for malignant neoplasm of breast (principal)
CPT/HCPCS: 77063; 77067

== ENCOUNTER → 2024-05-15 | Outpatient (CLI) | payer MEDICARE, OTHER, SELFPAY ==
--- NOTE | 2024-05-15 13:50 | RAD_ITS ---
STUDY: X-RAY CHEST REASON FOR EXAM: Female, 69 years old. COUGH TECHNIQUE: PA and lateral views of the chest. COMPARISON: 11/09/2020 FINDINGS: The lungs are clear and expanded. There is no demonstrated pleural abnormality. Normal size heart. Moderate-sized hiatal hernia with an air-fluid level. Normal visualized pulmonary arteries. Normal visualized aortic arch and descending thoracic aorta. Normal visualized thoracic spine. Normal visualized ribs, clavicles, and shoulders. There is no demonstrated abnormality of the visualized soft tissue structures of the upper abdomen. RAD/Chest PA and Lateral IMPRESSION: No active disease. Moderate hiatal hernia with air-fluid level. Electronically Signed: Nimesh Lowe MD at 14:32 EDT ,
== END | disposition home or self-care (01) ==
PROVIDERS: PCP Family Medicine; Referring Provider Nurse Practitioner Family; Visit Provider Nurse Practitioner Family
DX: R05.9 Cough, unspecified (principal); R06.2 Wheezing
CPT/HCPCS: 71046

== ENCOUNTER → 2024-08-01 | Outpatient (CLI) | payer MEDICARE, OTHER, SELFPAY ==
--- NOTE | 2024-08-01 14:22 | NEURO ---
NCS and/or EMG Patient Report Ordering Doctor: Giovani Murray DATE OF SERVICE: 08/01/24 Veronica presents with complaints of left wrist pain and tingling in the first 2 digits. Electrodiagnostic findings: Left median motor nerve demonstrates normal distal latency and amplitude with reduced conduction velocity. Left ulnar motor responses within normal limits. Normal median ulnar F?waves. Prolonged left median sensory latency at the wrist. Normal ulnar and radial sensory responses. Needle EMG testing was performed in the left upper limb. All muscles tested showed no evidence of denervation with normal motor unit action potentials. Electrodiagnostic impression: This is an abnormal study in the left upper limb. 1. Electrodiagnostic findings suggestive of left-sided median mononeuropathy. This consistent with a mild left carpal tunnel syndrome. Multi Select Codes Neurology Neurology Interp Codes: 59396-26 Musc test done w/n test comp (interp) and 95460-70 Nrv cndj tst 5-6 studies (interp)
== END | disposition home or self-care (01) ==
LOC: PSN 13:24
PROVIDERS: PCP Family Medicine; Referring Provider Student in an Organized Health Care Education/Training Program; Visit Provider Student in an Organized Health Care Education/Training Program
DX: G56.02 Carpal tunnel syndrome, left upper limb (principal); R20.2 Paresthesia of skin
CPT/HCPCS: 95886; 95909

== ENCOUNTER → 2024-09-05 | Outpatient (CLI) | payer MEDICARE, OTHER, SELFPAY ==
[2024-09-05 15:15] LABS: Absolute Lymphocyte Count 2.07 X10^3/uL (0.83-4.51); Basophil# 0.07 X10^3/uL; Eosinophil# 0.05 X10^3/uL; Eosinophils% 0.7 % (0-5); Hemoglobin 13.8 g/dL (12.0-15.0); Lymphocyte # 2.07 X10^3/ul (0.83-4.51); Lymphocyte % 30.8 % (19-41); Mean Corp Hgb Conc 32.9 g/dL (32-36); Mean Corpuscular Hgb 28.3 pg (27.0-32.0); Mean Corpuscular Volume 86.1 fL (81-99); Mean Platelet Vol. 10.5 fl (6.2-12.0); Monocyte# 0.56 X10^3/uL; Monocyte% 8.3 % (0-10); NRBC Flagged by Analyzer 0 % (0-5); Neutrophil # 3.96 X10^3/uL (2.7-7.7); Neutrophil % 58.9 % (47-70); Platelet Count 311 K/mm3 (150-450); RBC Distribution Width SD 40.4 fl (35.1-43.9); Red Blood Count 4.88 M/mm3 (4.2-5.4); White Blood Count 6.7 K/mm3 (4.4-11.0)
[2024-09-05 15:37] LABS: Vitamin B12 916 pg/mL (211-911); Vitamin D,25 Hydroxy 57.4 ng/mL
[2024-09-05 15:46] LABS: ALB/GLOB Ratio 1.1 RATIO (0.9-2.4); AST(SGOT) 13 U/L (15-37); Alanine Aminotransfer ALT/SGPT 23 U/L (13-56); Albumin, Serum 3.8 g/dL (3.2-5.0); Alkaline Phosphatase 98 U/L (45-117); Anion Gap 8 (5-15); BUN 18 mg/dL (7-18); Calcium,Total 9.4 mg/dL (8.5-10.1); Chloride 98 mmol/L (98-107); EST Glomerular Filtration Rate 58 mL/min (>60); Est Glom Filt Rate - Afr Amer 71 mL/min (>60); Ferritin 33 ng/mL (8-252); Free T3 2.6 pg/mL (2.18-3.98); Globulin 3.6 g/dL (2.2-4.2); Glucose 95 mg/dL (74-106); Iron 87 ug/dL (50-170); Potassium 3.6 mmol/L (3.5-5.1); Protein, Total 7.4 g/dL (6.4-8.2); Sodium Level 133 mmol/L (136-145); T4 Free Direct 1.17 ng/dL (0.76-1.46); Thyroid Stim Hormone (TSH) 0.842 uIU/mL (0.358-3.740)
== END | disposition home or self-care (01) ==
LOC: BFHLAB 11:14
PROVIDERS: PCP Family Medicine; Referring Provider Student in an Organized Health Care Education/Training Program; Visit Provider Family Medicine
DX: Z01.818 Encounter for other preprocedural examination (principal); E11.9 Type 2 diabetes mellitus without complications; R53.83 Other fatigue; E53.8 Deficiency of other specified B group vitamins; E03.9 Hypothyroidism, unspecified; D50.9 Iron deficiency anemia, unspecified; E55.9 Vitamin D deficiency, unspecified
CPT/HCPCS: 36415; 80053; 82306; 82607; 82728; 83540; 84439; 84443; 84481; 85025

== ENCOUNTER 2024-11-19 13:30 | Outpatient (RCR) | payer MEDICARE, OTHER, SELFPAY ==
[2024-10-29 13:50] VITALS: BP 144/79; PULSE 92; RESP 16; TEMP 35.9; BMI 30.9
--- NOTE | 2024-10-29 14:22 | PCM.WC.HP ---
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 The procedure was done open by a local orthopedist, and she has been having wound healing problems over the middle portion of the incision at the wrist crease. Patient is not a smoker and is not a diabetic. No post-operative infection. Her only steroid exposure is her budesonide for her asthma. No current numbness or tingling. Her CT symptoms have resolved. The CT was released open. Her orthopedic surgeon has had her doing Silvadene dressings twice daily. [facility] Medical History Anemia Anxiety Diabetes Chronic pain Non-smoker Sleep apnea Polymyalgia rheumatica COVID-19 Chronic iron deficiency anemia Anxiety and depression Diabetes mellitus, type 2 GERD (gastroesophageal reflux disease) Asthma HLD (hyperlipidemia) HTN (hypertension) Home Medications ?Medication ?Instructions ?Recorded ?Last Taken ?Type esomeprazole magnesium 40 mg 40 mg PO DAILY 09/03/13 09/01/13 08:00 History capsule,delayed release (Nexium) aspirin 81 mg chewable tablet 81 mg PO DAILY@0800 ##30 09/04/13 Unknown Rx calcium 600 mg PO/SL DAILY 01/31/22 Unknown History cyanocobalamin (vitamin B-12) See Rx Instructions .Route .COMPLEX 01/31/22 Unknown History 1,000 mcg/mL injection solution meloxicam 15 mg tablet 15 mg PO ONCE PRN Pain 02/11/22 Unknown History ergocalciferol (vitamin D2) 1,250 1,250 mcg PO SAAB 03/26/22 Unknown History mcg (50,000 unit) capsule (Vitamin D2) multivitamin 1 tab PO DAILY 03/26/22 Unknown History hydrochlorothiazide 25 mg tablet 25 mg PO DAILY 06/22/23 Unknown History albuterol sulfate 90 mcg/actuation 2 puff inhalation Q4H PRN PRN 07/26/24 Unknown Rx aerosol inhaler (Ventolin HFA) Shortness Of Breath #8.5 grams budesonide 1 mg/2 mL suspension 1 mg (2 mL) inhalation BID #60 mL 07/26/24 Unknown Rx for nebulization cetirizine 10 mg capsule (Zyrtec) 10 mg PO DAILY #90 caps 07/26/24 Unknown Rx fluticasone propionate 50 2 spray intranasal DAILY #16 grams 07/26/24 Unknown Rx mcg/actuation nasal spray,suspension gabapentin 100 mg capsule mg PO 07/26/24 Unknown History montelukast 10 mg tablet 10 mg PO QPM #90 tabs 07/26/24 Unknown Rx (Singulair) ipratropium 0.5 mg-albuterol 3 mg 3 ml inhalation TID PRN Shortness 07/27/24 Unknown Rx (2.5 mg base)/3 mL nebulization Of Breath #180 mL soln Allergy/AdvReac Type Severity Reaction Status Date / Time Penicillins Allergy Hives Verified 07/26/24 07:44 morphine AdvReac Hives Verified 07/26/24 07:44 Family History Mother CAD (coronary artery disease) CABG age 59. Hypertension Heart disease Myocardial infarction Father CAD (coronary artery disease) [place] in his 70s. Hypertension Heart disease Myocardial infarction Brother Myocardial infarction Diabetes Sister COPD (chronic obstructive pulmonary disease) Surgical History History of appendectomy S/P bilateral cataract extraction History of uterine suspension procedure S/P appendectomy Status post hysteroscopic ablation of endometrium H/O arthroscopic knee surgery History of carpal tunnel release Social History household members: other details: None, , spouse passed 2002. Smoking Status: Never smoker alcohol intake: never substance use type: does not use Vital Signs Vital Signs Vital Signs: 10/29/24 13:50 Temperature 96.6 F L Temperature Source Temporal Pulse Rate 92 Respiratory Rate 16 Blood Pressure 144/79 H Blood Pressure Mean 100 Blood Pressure Source Monitor Blood Pressure Position Semi-Fowlers Blood Pressure Location Left Arm Oxygen Delivery Method Room Air Weight Weight: 180 lb Body Mass Index (BMI) 30.9 Physical Exam Narrative Left Upper Extremity Inspection: The wound is 0.4 mm x 0.4 mm and it is 0.4mm deep. Tunnels slightly proximally towards the antebrachial fascia. Fibrinous exudate at the base and the edges of the skin are healed in/epithelialized. Palpation: No TTP. No fluid collections. Motor: Able to bend and extend all MP, PIP, and DIP joints. Thenar musculature fires with opposition of thumb to other digits (motor branch of median O.K.). Sensory: Intact to light touch on the radial and ulnar borders. Vascular: Finger tips are warm and well perfused with <2 second capillary refill. Debridement Note Debridement Note Wound debrided: Left volar hand Laterality: Left Type of Debridement: Excisional debridement Anesthesia Used: 4% Lidocaine Solution Depth: Down to and including healthy tissue and - (To the palmar fascia ) Percentage of wound debrided: 100 Instrument Used: 7mm curette Severity: Fat Layer Exposed Amount of bleeding with debridement: Mild Bleeding Controlled with: Compression and gauze Patient tolerated procedure: Patient tolerated procedure well Post-Debridement Measurements and Additional Note: Post-Debridement Measurements/Treatment - Nurse 1 - General Ulcer Assessment Start: 10/29/24 13:48 Freq: Status: Active Protocol: TESSIE[employer] Activity Type Activity Date Activity User E-sign Co-sign Detail Recorded Client Recorded Date Recorded By Document 10/29/24 13:50 KW [id number] 10/29/24 13:57 KW 10/29/24 13:50 - Today's Visit Information Type of service Initial Visit Arrival Mode Ambulatory Patient Identification Verified (Name & Yes ) Height and Weight Height 5 ft 4 in Weight 180 lb Weight in Pounds 180.0 lbs Weight Measurement Method Estimated by Patient Body Mass Index (BMI) 30.9 BMI Classification Obese BSA - Lara 1.87 Vital Signs Temperature (97.8 F-99.1 F) 96.6 F L Temperature Source Temporal Pulse Rate (60-100) 92 Pulse Location Monitor Respiratory Rate (12-18) 16 Respiratory rate source Observation Oxygen Delivery Method Room Air Blood Pressure (90/60-120/80) 144/79 H Blood Pressure Mean 100 Source Monitor Position Semi-Fowlers Blood Pressure Location Left Arm History Since Last Visit- (Skip if this is Patient's initial visit) Left Footwear Regular Shoe Right Footwear Regular Shoe Pain Scale: 0-10 Numeric Is Patient Pain Free? No LEFT HAND -Description Burning,Aching -Alleviating Factors/Interventions Medication, Medicate when due Communication Assessment Preferred language Vincentian Sys Dir Required No Able to Read Yes Able to Write Yes Communication Tools None Caregiver Communication Skills No Impairment Impairment Right Hearing Abillity Normal Left Hearing Abillity Normal Visual Assistive Devices Glasses Teaching Assessment Preferences Verbal,Written, Demonstration Barriers to Learning None Readiness To Learn Excellent Willingness to Engage in Self Management High Activies Readiness to Engage in Self Management High Activities Anxiety Level Calm Cooperation Cooperative Perception Coherent Interest in Health Problem Asks Questions Education Importance Acknowledges Need Does Patient Smoke tobacco or other Yes substances Smoking Status Never smoker Is Patient Diabetic No Functional Assessment Recent Decline in Ability to Perform Denies Any Declines Culture/Spiritism/Embryology Professor Cultural/Spiritism Needs that may affect No Treatment Plan Would you allow our hospital change control coordinator to No meet you for the purpose of spiritual/ emotional support? Embryology Professor to contact place of church No WC - Nurse 1 - General Ulcer Measurement Start: 10/29/24 13:48 Freq: Status: Active Protocol: Activity Type Activity Date Activity User E-sign Co-sign Detail Recorded Client Recorded Date Recorded By Document 10/29/24 13:50 KW [id number] 10/29/24 13:57 KW 10/29/24 13:50 Wound Center Nurse 1 #1 LT PALM -Current Size (cm) - Length 0.3 -Current Size (cm) - Width 0.3 -Current Size (cm) - Depth 0.3 -Total Square Cm 0.09 -Date of Last Picture (Recall this 10/29/24 field) -Tunneling Yes -Tunneling Position (O'clock) 6 -Tunneling Distance (cm) 3.5 -Exudate Amt Small -Exudate Type Serosanguineous -Wound Margin Distinct, Outline Attached -Granulation Amt Medium (34-66%) -Granulation Quality Red -Necrosis Amt Medium (34-66%) -Necrotic Tissue Type Adherent Slough -Texture (Kacie-wound Skin Appearance) Assessed -Moisture (Kacie-wound Skin Appearance) Assessed -Color (Kacie-wound Skin Appearance) Assessed -Temperature (Kacie-wound Skin No Abnormality Appearance) (Pt Warm) -Tenderness on Palpation (Kacie-wound No Skin Appearance) -Ulcer Cleansing Rinsed/ Irrigated with Saline -Foul Odor after Cleansing No -Anesthetic Used 5% Lidocaine Gel Charges/Coding Visit Charges Office Visits / Consults: 73895 OV L4 New 45min (with 25 modifier (see procedure code for debridement) ) Procedures Integumentary 111xxx-113xx: 00119 Jolene musc/fascia 20 sq cm/< Assessment/Plan Assessment/Plan (1) Open wound, hand: CODE(S): S61.409A - Unspecified open wound of unspecified hand, initial encounter PLAN: A curette and forceps and 15 blade were used in clinic to remove some of the exudate carefully and excise the skin edges to promote granulation. THe wound was irrigated and soaked in soap soaks for 10 minutes and then packed with iodoform gauze. No shooting/electrical pain or numbness/tingling, tolerated quite well. No exposed critical structures at this point in the base of wound as I can see. Needs to do soap soaks twice daily to promote granulation and packing with iodoform. F/u next week in clinic. Next step if she fails to progress will be opening incision in the OR, washing out wound with cultures +/- possible delayed primary closure.
[2024-11-05 08:17] VITALS: BP 157/95; PULSE 87; RESP 18; TEMP 36.1; BMI 30.9
--- NOTE | 2024-11-05 08:56 | PCM.WC.PN ---
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 The procedure was done open by a local orthopedist, and she has been having wound healing problems over the middle portion of the incision at the wrist crease. Patient is not a smoker and is not a diabetic. No post-operative infection. Her only steroid exposure is her budesonide for her asthma. No current numbness or tingling. Her CT symptoms have resolved. The CT was released open. Her orthopedic surgeon has had her doing Silvadene dressings twice daily. Progress of Wound: Current encounter 11/07/24: She has been doing the warm water Dial soaks twice daily and packing with iodoform gauze. She continues to have an open wound with significant depth. No exposed critical structures at this point in the base of wound as I can see. Objective Data Objective Data Vital Signs: Vital Signs Temp Pulse Resp BP O2 Del Method 96.9 F L 87 18 157/95 H Room Air 11/05/24 08:17 11/05/24 08:17 11/05/24 08:17 11/05/24 08:17 11/05/24 08:17 Oxygen Delivery Method Room Air Weight: 180 lb Body Mass Index (BMI) 30.9 Charges/Coding Procedures Integumentary 111xxx-113xx: 34953 Jolene musc/fascia 20 sq cm/< Debridement Note Debridement Note Wound debrided: Left volar hand Laterality: Left Type of Debridement: Excisional debridement Anesthesia Used: 4% Lidocaine Solution Depth: Down to and including healthy tissue and - (To the palmar fascia ) Percentage of wound debrided: 100 Instrument Used: 3mm curette Tissue Removed: Non viable tissue and slough around the wound opening Severity: Fat Layer Exposed Amount of bleeding with debridement: Mild Bleeding Controlled with: Compression and gauze Patient tolerated procedure: Patient tolerated procedure well Post-Debridement Measurements and Additional Note: Post-Debridement Measurements/Treatment TESSIE - Nurse 1 - General Ulcer Assessment Start: 10/29/24 13:48 Freq: Status: Active Protocol: GHAZALT Activity Type Activity Date Activity User E-sign Co-sign Detail Recorded Client Recorded Date Recorded By Document 10/29/24 13:50 KW [id number] 10/29/24 13:57 KW Document 11/05/24 08:17 KW [id number] 11/05/24 08:21 KW 10/29/24 11/05/24 13:50 08:17 WC - Today's Visit Information Type of service Initial Visit Follow-up Visit (Physician/PROPELLER LAYOUT WORKER ) Arrival Mode Ambulatory Ambulatory Patient Identification Verified (Name & Yes Yes ) Height and Weight Height 5 ft 4 in Weight 180 lb Weight in Pounds 180.0 lbs Weight Measurement Method Estimated by Patient Body Mass Index (BMI) 30.9 30.9 BMI Classification Obese Obese BSA - Lara 1.87 Vital Signs Temperature (97.8 F-99.1 F) 96.6 F L 96.9 F L Temperature Source Temporal Temporal Pulse Rate (60-100) 92 87 Pulse Location Monitor Monitor Respiratory Rate (12-18) 16 18 Respiratory rate source Observation Observation Oxygen Delivery Method Room Air Room Air Blood Pressure (90/60-120/80) 144/79 H 157/95 H Blood Pressure Mean (mm Hg) 100 115 Source Monitor Monitor Position Semi-Fowlers Sitting Blood Pressure Location Left Arm Left Arm History Since Last Visit- (Skip if this is Patient's initial visit) Have you changed medications since your No last visit? Any new allergies or adverse reactions No Had a fall/change in ADL's that may No increase risk of falls Signs or symptoms of abuse and/or No neglect since last visit Have you been in the hospital since your No last visit? Has dressing in place as prescribed Yes Has compression in place as prescribed Yes Has offloadiing in place as prescribed N/A Experienced any changes in pain level or No management Left Footwear Regular Shoe Regular Shoe Right Footwear Regular Shoe Regular Shoe Pain Scale: 0-10 Numeric Is Patient Pain Free? No Yes LEFT HAND -Description Burning,Aching -Alleviating Factors/Interventions Medication, Medicate when due Communication Assessment Preferred language Yoruba Digital Tech Required No Able to Read Yes Able to Write Yes Communication Tools None Caregiver Communication Skills No Impairment Impairment Right Hearing Abillity Normal Left Hearing Abillity Normal Visual Assistive Devices Glasses Teaching Assessment Preferences Verbal,Written, Demonstration Barriers to Learning None Readiness To Learn Excellent Willingness to Engage in Self Management High Activies Readiness to Engage in Self Management High Activities Anxiety Level Calm Cooperation Cooperative Perception Coherent Interest in Health Problem Asks Questions Education Importance Acknowledges Need Does Patient Smoke tobacco or other Yes substances Smoking Status Never smoker Is Patient Diabetic No Functional Assessment Recent Decline in Ability to Perform Denies Any Declines Culture/Baptist/Drawing Kiln Operator Cultural/Baptist Needs that may affect No Treatment Plan Would you allow our hospital echocardiographer to No meet you for the purpose of spiritual/ emotional support? Drawing Kiln Operator to contact place of buddhist No WC - Nurse 1 - General Ulcer Measurement Start: 10/29/24 13:48 Freq: Status: Active Protocol: Activity Type Activity Date Activity User E-sign Co-sign Detail Recorded Client Recorded Date Recorded By Document 10/29/24 13:50 KW [id number] 10/29/24 13:57 KW Document 11/05/24 08:17 KW [id number] 11/05/24 08:21 KW 10/29/24 11/05/24 13:50 08:17 Wound Center Nurse 1 #1 LT PALM -Current Size (cm) - Length 0.3 0.5 -Current Size (cm) - Width 0.3 0.5 -Current Size (cm) - Depth 0.3 0.3 -Total Square Cm 0.09 0.25 -Date of Last Picture (Recall this 10/29/24 field) -Tunneling Yes -Tunneling Position (O'clock) 6 6 -Tunneling Distance (cm) 3.5 2.8 -Exudate Amt Small Small -Exudate Type Serosanguineous Serosanguineous -Wound Margin Distinct, Distinct, Outline Outline Attached Attached -Granulation Amt Medium (34-66%) Large (67-100%) -Granulation Quality Red [place] -Necrosis Amt Medium (34-66%) -Necrotic Tissue Type Adherent Slough -Texture (Kacie-wound Skin Appearance) Assessed Assessed -Moisture (Kacie-wound Skin Appearance) Assessed Assessed, Maceration -Color (Kacie-wound Skin Appearance) Assessed Assessed -Temperature (Kacie-wound Skin No Abnormality No Abnormality Appearance) (Pt Warm) (Pt Warm) -Tenderness on Palpation (Kacie-wound No No Skin Appearance) -Ulcer Cleansing Rinsed/ Rinsed/ Irrigated with Irrigated with Saline Saline -Foul Odor after Cleansing No No -Anesthetic Used 5% Lidocaine 5% Lidocaine Gel Gel - Nurse 2 - General Ulcer CM Notes Start: 10/29/24 13:48 Freq: Status: Active Protocol: Activity Type Activity Date Activity User E-sign Co-sign Detail Recorded Client Recorded Date Recorded By Document 10/29/24 14:06 [id number] 10/29/24 14:22 Document 11/05/24 08:41 [id number] 11/05/24 08:45 10/29/24 11/05/24 14:06 08:41 Wound Center Nurse 2 #1 LT PALM -Time 14:11 08:42 -Correct Patient Yes Yes -Correct Side, Site, Position Yes Yes -Correct Procedure Yes Yes -Procedure Performed Yes Yes -Type of Procedure Debridement Debridement -Clinical Debridement Muscle / Fascia Muscle / Fascia -Tissue Removed Tendon Subcutaneous, Tendon -Post Debridement (cm) - Length 0.4 0.5 -Post Debridement (cm) - Width 0.4 0.4 -Post Debridement (cm) - Depth 0.4 0.5 -Total Square (Post) (cm) 0.16 0.20 -Area of Debridement (cm) - Length 0.4 0.5 -Area of Debridement (cm) - Width 0.4 0.4 -Total Square (Area) (cm) 0.16 0.20 -Tunneling No No -Undermining/Tunneling No No -Circular Undermining No No -Wound/Ulcer Outcome Not Healed Not Healed -Ulcer Cleansing Rinsed/ Rinsed/ Irrigated with Irrigated with Saline Saline -Foul Odor after Cleansing No No -Bioengineered Tissue No No -Bleeding Controlled with Pressure Pressure -Treatment Response Procedure Procedure Tolerated Well Tolerated Well -Offloading No -Debridement - Muscle / Fascia, 1st Yes Yes 20sq cm Pain Scale: 0-10 Numeric Is Patient Pain Free? Yes Yes - Nurse 3 - General Ulcer D/C NN Start: 10/29/24 13:48 Freq: Status: Active Protocol: Activity Type Activity Date Activity User E-sign Co-sign Detail Recorded Client Recorded Date Recorded By Document 10/29/24 14:31 [id number] 10/29/24 14:32 10/29/24 14:31 Wound Care Center Nurse 3 #1 LT PALM -Ulcer Cleansing Rinsed/ Irrigated with Saline -Foul Odor after Cleansing No -Primary Dressing Applied Nugauze, Iodoform 1/2in -Primary Dressing Covered/Secured with Dry Gauze, Secured with Tape -Nugauze, Iodoform 1/2in 1 Left -Compression Wrap Carlos Alberto Wrap Pain Scale: 0-10 Numeric Is Patient Pain Free? Yes WC - Visit Discharge Discharge Condition Stable Ambulatory Status Ambulatory Transportation Private Auto Medication Reconcilliation completed & Yes provided to patient/care provider Clinical Summary of Care Provided Yes Assessment/Plan Assessment/Plan (1) Open wound, hand: CODE(S): S61.409A - Unspecified open wound of unspecified hand, initial encounter PLAN: Plan Irrigated the wound well with saline. A wound culture was obtained today.? A positive culture may necessitate antibiotic therapy. No shooting/electrical pain or numbness/tingling, tolerated quite well. Wound care - Continue Dial soap soaks twice daily to promote granulation and packing with iodoform, cover with gauze. F/u next week in clinic with Dr. Jack.
[2024-11-12 08:13] VITALS: BP 140/89; PULSE 84; RESP 16; TEMP 35.3; BMI 30.9
--- NOTE | 2024-11-12 08:34 | PN.PCM_ITS ---
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 The procedure was done open by a local orthopedist, and she has been having wound healing problems over the middle portion of the incision at the wrist crease. Patient is not a smoker and is not a diabetic. No post- operative infection. Her only steroid exposure is her budesonide for her asthma. No current numbness or tingling. Her CT symptoms have resolved. The CT was released open. Her orthopedic surgeon has had her doing Silvadene dressings twice daily. Progress of Wound: 11/07/24: She has been doing the warm water Dial soaks twice daily and packing with iodoform gauze. She continues to have an open wound with significant depth. No exposed critical structures at this point in the base of wound as I can see. CURRENT ENCOUNTER, 12 Nov 2024: Doing quite well. Has noticed significant improvement over the past week. She was placed on Doxycycline for positive cultures last week (taken/ordered by ADMINISTRATIVE DIRECTOR, growing Staphlococcus warneri). Endorses good wound care. Objective Data Objective Data Vital Signs: Vital Signs Temp Pulse Resp BP O2 Del Method 95.5 F L 84 16 140/89 H Room Air 11/12/24 08:13 11/12/24 08:13 11/12/24 08:13 11/12/24 08:13 11/12/24 08:13 Oxygen Delivery Method Room Air Weight: 180 lb Body Mass Index (BMI) 30.9 Lab / Micro Data Micro: Microbiology 11/05/24 08:47 Wound - Left Hand Gram Stain - Final 11/05/24 08:47 Wound - Left Hand Wound Culture - Final Staphylococcus warneri 11/05/24 08:47 Wound - Left Hand Anaerobic Culture - Final No anaerobic bacteria isolated. Charges/Coding Procedures Integumentary [id number]: [id number] Jolene subq tissue 20 sq cm/< Physical Exam Narrative Left Upper Extremity Inspection: The wound is 0.25 mm x 0.25 mm and it is 0.25 mm deep. No tunnelling at this time. Palpation: No TTP. No fluid collections. Motor: Able to bend and extend all MP, PIP, and DIP joints. Thenar musculature fires with opposition of thumb to other digits (motor branch of median O.K.). Sensory: Intact to light touch on the radial and ulnar borders. Vascular: Finger tips are warm and well perfused with <2 second capillary refill. Debridement Note Debridement Note Wound debrided: Left volar hand Laterality: Left Type of Debridement: Excisional debridement Anesthesia Used: 4% Lidocaine Solution Depth: Down to and including healthy tissue and in the subcutaneous layer Percentage of wound debrided: 100 Instrument Used: 3mm curette Severity: Fat Layer Exposed Amount of bleeding with debridement: Mild Bleeding Controlled with: Compression and gauze Patient tolerated procedure: Patient tolerated procedure well Post-Debridement Measurements and Additional Note: Post-Debridement Measurements/Treatment WC - Nurse 1 - General Ulcer Assessment Start: 10/29/24 13:48 Freq: Status: Active Protocol: MICKEY Activity Type Activity Date Activity User E-sign Co-sign Detail Recorded Client Recorded Date Recorded By Document 10/29/24 13:50 KW [id number] 10/29/24 13:57 KW Document 11/05/24 08:17 KW [id number] 11/05/24 08:21 KW Document 11/12/24 08:13 [facility] [id number] 11/12/24 08:19 BM 10/29/24 11/05/24 11/12/24 13:50 08:17 08:13 - Today's Visit Information Type of service Initial Visit Follow-up Visit Follow-up Visit (Physician/SHORT STORY WRITER (Physician/SHORT STORY WRITER ) ) Arrival Mode Ambulatory Ambulatory Ambulatory Transfer Assistance None Patient Identification Verified (Name & Yes Yes Yes ) Patient Requires Transmission-Based No Precautions Height and Weight Height 5 ft 4 in Weight 180 lb Weight in Pounds 180.0 lbs Weight Measurement Method Estimated by Patient Body Mass Index (BMI) 30.9 30.9 30.9 BMI Classification Obese Obese Obese BSA - Lara 1.87 Vital Signs Temperature (97.8 F-99.1 F) 96.6 F L 96.9 F L 95.5 F L Temperature Source Temporal Temporal Temporal Pulse Rate (60-100) 92 87 84 Pulse Location Monitor Monitor Monitor Respiratory Rate (12-18) 16 18 16 Respiratory rate source Observation Observation Observation Oxygen Delivery Method Room Air Room Air Room Air Blood Pressure (90/60-120/80) 144/79 H 157/95 H 140/89 H Blood Pressure Mean (mm Hg) 100 115 106 Source Monitor Monitor Monitor Position Semi-Fowlers Sitting Sitting Blood Pressure Location Left Arm Left Arm Right Arm History Since Last Visit- (Skip if this is Patient's initial visit) Have you changed medications since your No No last visit? Any new allergies or adverse reactions No No Had a fall/change in ADL's that may No No increase risk of falls Signs or symptoms of abuse and/or No No neglect since last visit Have you been in the hospital since your No No last visit? Has dressing in place as prescribed Yes Yes Has compression in place as prescribed Yes N/A Has offloadiing in place as prescribed N/A N/A Experienced any changes in pain level or No No management Left Footwear Regular Shoe Regular Shoe Regular Shoe Right Footwear Regular Shoe Regular Shoe Regular Shoe Pain Scale: 0-10 Numeric Is Patient Pain Free? No Yes Yes LEFT HAND -Description Burning,Aching -Alleviating Factors/Interventions Medication, Medicate when due Communication Assessment Preferred language [place] Protection Engineer Required No Able to Read Yes Able to Write Yes Communication Tools None Caregiver Communication Skills No Impairment Impairment Right Hearing Abillity Normal Left Hearing Abillity Normal Visual Assistive Devices Glasses Teaching Assessment Preferences Verbal,Written, Demonstration Barriers to Learning None Readiness To Learn Excellent Willingness to Engage in Self Management High Activies Readiness to Engage in Self Management High Activities Anxiety Level Calm Cooperation Cooperative Perception Coherent Interest in Health Problem Asks Questions Education Importance Acknowledges Need Does Patient Smoke tobacco or other Yes substances Smoking Status Never smoker Is Patient Diabetic No Functional Assessment Recent Decline in Ability to Perform Denies Any Declines Culture/Pentecostal/Orthodontic Technician Assistant Cultural/Pentecostal Needs that may affect No Treatment Plan Would you allow our hospital mattress renovator to No meet you for the purpose of spiritual/ emotional support? Orthodontic Technician Assistant to contact place of druze No WC - Nurse 1 - General Ulcer Measurement Start: 10/29/24 13:48 Freq: Status: Active Protocol: Activity Type Activity Date Activity User E-sign Co-sign Detail Recorded Client Recorded Date Recorded By Document 10/29/24 13:50 KW [id number] 10/29/24 13:57 KW Document 11/05/24 08:17 KW [id number] 11/05/24 08:21 KW Document 11/12/24 08:13 BM [id number] 11/12/24 08:19 BM 10/29/24 11/05/24 11/12/24 13:50 08:17 08:13 Wound Center Nurse 1 #1 LT PALM -Combined with other wound No -Current Size (cm) - Length 0.3 0.5 0.1 -Current Size (cm) - Width 0.3 0.5 0.1 -Current Size (cm) - Depth 0.3 0.3 0.1 -Total Square Cm 0.09 0.25 0.01 -Date of Last Picture (Recall this 10/29/24 11/12/24 field) -Photo Taken Yes -Tunneling Yes -Tunneling Position (O'clock) 6 6 -Tunneling Distance (cm) 3.5 2.8 -Exudate Amt Small Small Medium -Exudate Type Serosanguineous Serosanguineous Serous -Wound Margin Distinct, Distinct, Distinct, Outline Outline Outline Attached Attached Attached -Granulation Amt Medium (34-66%) Large (67-100%) Large (67-100%) -Granulation Quality Red [place] Red -Slough/Fibrin No -Necrosis Amt Medium (34-66%) None Present (0 %) -Necrotic Tissue Type Adherent Slough -Texture (Kacie-wound Skin Appearance) Assessed Assessed Assessed -Moisture (Kacie-wound Skin Appearance) Assessed Assessed, Assessed, Maceration Maceration -Color (Kacie-wound Skin Appearance) Assessed Assessed Assessed -Temperature (Kacie-wound Skin No Abnormality No Abnormality No Abnormality Appearance) (Pt Warm) (Pt Warm) (Pt Warm) -Tenderness on Palpation (Kacie-wound No No No Skin Appearance) -Ulcer Cleansing Rinsed/ Rinsed/ Rinsed/ Irrigated with Irrigated with Irrigated with Saline Saline Saline -Foul Odor after Cleansing No No No -Anesthetic Used 5% Lidocaine 5% Lidocaine Gel Gel -Wound Comment(s) tiny pin hole type wound. did not probe WC - Nurse 2 - General Ulcer CM Notes Start: 10/29/24 13:48 Freq: Status: Active Protocol: Activity Type Activity Date Activity User E-sign Co-sign Detail Recorded Client Recorded Date Recorded By Document 10/29/24 14:06 [id number] 10/29/24 14:22 JF Document 11/05/24 08:41 GM [id number] 11/05/24 08:45 GM Document 11/12/24 08:26 DS [id number] 11/12/24 08:30 DS 10/29/24 11/05/24 11/12/24 14:06 08:41 08:26 Wound Center Nurse 2 #1 LT PALM -Time 14:11 08:42 08:26 -Correct Patient Yes Yes Yes -Correct Side, Site, Position Yes Yes Yes -Correct Procedure Yes Yes Yes -Procedure Performed Yes Yes Yes -Type of Procedure Debridement Debridement Debridement -Clinical Debridement Muscle / Fascia Muscle / Fascia Subcutaneous -Tissue Removed Tendon Subcutaneous, Subcutaneous Tendon -Post Debridement (cm) - Length 0.4 0.5 0.2 -Post Debridement (cm) - Width 0.4 0.4 0.2 -Post Debridement (cm) - Depth 0.4 0.5 0.2 -Total Square (Post) (cm) 0.16 0.20 0.04 -Area of Debridement (cm) - Length 0.4 0.5 0.2 -Area of Debridement (cm) - Width 0.4 0.4 0.2 -Total Square (Area) (cm) 0.16 0.20 0.04 -Tunneling No No No -Undermining/Tunneling No No No -Circular Undermining No No No -Wound/Ulcer Outcome Not Healed Not Healed Not Healed -Ulcer Cleansing Rinsed/ Rinsed/ Rinsed/ Irrigated with Irrigated with Irrigated with Saline Saline Saline -Foul Odor after Cleansing No No No -Bioengineered Tissue No No No -Bleeding Controlled with Pressure Pressure Pressure -Treatment Response Procedure Procedure Procedure Tolerated Well Tolerated Well Tolerated Well -Offloading No -Debridement - Subq, 1st 20sq cm Yes -Debridement - Muscle / Fascia, 1st Yes Yes 20sq cm Pain Scale: 0-10 Numeric Is Patient Pain Free? Yes Yes Yes WC - Nurse 3 - General Ulcer D/C NN Start: 10/29/24 13:48 Freq: Status: Active Protocol: Activity Type Activity Date Activity User E-sign Co-sign Detail Recorded Client Recorded Date Recorded By Document 10/29/24 14:31 JF [id number] 10/29/24 14:32 Document 11/05/24 08:59 ML [id number] 11/05/24 09:00 ML 10/29/24 11/05/24 14:31 08:59 Wound Care Center Nurse 3 #1 LT PALM -Ulcer Cleansing Rinsed/ Rinsed/ Irrigated with Irrigated with Saline Saline -Foul Odor after Cleansing No No -Primary Dressing Applied Nugauze, Iodoform 1/2in -Other Dressing iodoform -Primary Dressing Covered/Secured with Dry Gauze, Dry Gauze, Secured with Secured with Tape Tape -Nugauze, Iodoform 1/2in 1 Left -Compression Wrap Carlos Alberto Wrap Pain Scale: 0-10 Numeric Is Patient Pain Free? Yes Yes WC - Visit Discharge Discharge Condition Stable Ambulatory Status Ambulatory Transportation Private Auto Medication Reconcilliation completed & Yes provided to patient/care provider Clinical Summary of Care Provided Yes Assessment/Plan Assessment/Plan (1) Open wound, hand: CODE(S): S61.409A - Unspecified open wound of unspecified hand, initial encounter PLAN: Wound improving Continue warm Dial soap soaks twice daily with packing using iodoform until it re-epithelializes Continue Doxycycline. F/u with infectious disease for long-term recommendations (cultures taken from deep soft tissue of volar wrist over the median nerve/tendons). F/u with me in 1 week
--- NOTE | 2024-11-12 11:12 | WC ---
PHOTO 11/12/24 LEFT PALM
[2024-11-19 13:34] VITALS: BP 141/79; PULSE 82; RESP 18; TEMP 36.8; BMI 30.9
--- NOTE | 2024-11-20 07:23 | PN.PCM_ITS ---
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 The procedure was done open by a local orthopedist, and she has been having wound healing problems over the middle portion of the incision at the wrist crease. Patient is not a smoker and is not a diabetic. No post- operative infection. Her only steroid exposure is her budesonide for her asthma. No current numbness or tingling. Her CT symptoms have resolved. The CT was released open. Her orthopedic surgeon has had her doing Silvadene dressings twice daily. Progress of Wound: 11/07/24: She has been doing the warm water Dial soaks twice daily and packing with iodoform gauze. She continues to have an open wound with significant depth. No exposed critical structures at this point in the base of wound as I can see. 12 Nov 2024: Doing quite well. Has noticed significant improvement over the past week. She was placed on Doxycycline for positive cultures last week (taken/ordered by [employer] DEF[employer] CONTROL OFFICER, growing Staphlococcus warneri). Endorses good wound care. CURRENT ENCOUNTER, 20 Nov 2024: Improvement in the wound again today. Nearly healed over, but some thick callus forming at the wound edge. Endorses good soaks/dressing changes. No pain. No signs of infection. Objective Data Objective Data Vital Signs: Vital Signs Temp Pulse Resp BP O2 Del Method 98.2 F 82 18 141/79 H Room Air 11/19/24 13:34 11/19/24 13:34 11/19/24 13:34 11/19/24 13:34 11/12/24 08:13 Oxygen Delivery Method Room Air Weight: 180 lb Body Mass Index (BMI) 30.9 Lab / Micro Data Micro: Microbiology 11/05/24 08:47 Wound - Left Hand Gram Stain - Final 11/05/24 08:47 Wound - Left Hand Wound Culture - Final Staphylococcus warneri 11/05/24 08:47 Wound - Left Hand Anaerobic Culture - Final No anaerobic bacteria isolated. Charges/Coding Procedures Integumentary 111xxx-113xx: 10069 Jolene musc/fascia 20 sq cm/< Physical Exam Narrative Left Upper Extremity Inspection: The wound is 0.2 mm x 0.4 mm and it is 0.2 mm deep. No tunnelling at this time. Palpation: No TTP. No fluid collections. Motor: Able to bend and extend all MP, PIP, and DIP joints. Thenar musculature fires with opposition of thumb to other digits (motor branch of median O.K.). Sensory: Intact to light touch on the radial and ulnar borders. Vascular: Finger tips are warm and well perfused with <2 second capillary refill. Debridement Note Debridement Note Wound debrided: Left hand carpal tunnel incision (surgical wound) Laterality: Left Type of Debridement: Excisional debridement Anesthesia Used: 4% Lidocaine Solution Depth: - (Down to palmar fascia ) Percentage of wound debrided: 100 Instrument Used: 7mm curette Tissue Removed: necrotic palmar fascia/dermis at the base of the wound Severity: Necrosis of Muscle (necrosis to palmar fascia (not muscle) ) Amount of bleeding with debridement: Mild Bleeding Controlled with: Compression and gauze Patient tolerated procedure: Patient tolerated procedure well Post-Debridement Measurements and Additional Note: Post-Debridement Measurements/Treatment - Nurse 1 - General Ulcer Assessment Start: 10/29/24 13:48 Freq: Status: Active Protocol: MICKEY Activity Type Activity Date Activity User E-sign Co-sign Detail Recorded Client Recorded Date Recorded By Document 10/29/24 13:50 KW [id number] 10/29/24 13:57 KW Document 11/05/24 08:17 KW [id number] 11/05/24 08:21 KW Document 11/12/24 08:13 BM [id number] 11/12/24 08:19 BMF Document 11/19/24 13:34 DL [id number] 11/19/24 13:40 DL 10/29/24 11/05/24 11/12/24 13:50 08:17 08:13 - Today's Visit Information Type of service Initial Visit Follow-up Visit Follow-up Visit (Physician/PROGRAM DIRECTOR/MORNING SHOW HOST (Physician/PROGRAM DIRECTOR/MORNING SHOW HOST ) ) Arrival Mode Ambulatory Ambulatory Ambulatory Transfer Assistance None Patient Identification Verified (Name & Yes Yes Yes ) Patient Requires Transmission-Based No Precautions Height and Weight Height 5 ft 4 in Weight 180 lb Weight in Pounds 180.0 lbs Weight Measurement Method Estimated by Patient Body Mass Index (BMI) 30.9 30.9 30.9 BMI Classification Obese Obese Obese BSA - Lara 1.87 Vital Signs Temperature (97.8 F-99.1 F) 96.6 F L 96.9 F L 95.5 F L Temperature Source Temporal Temporal Temporal Pulse Rate (60-100) 92 87 84 Pulse Location Monitor Monitor Monitor Respiratory Rate (12-18) 16 18 16 Respiratory rate source Observation Observation Observation Oxygen Delivery Method Room Air Room Air Room Air Blood Pressure (90/60-120/80) 144/79 H 157/95 H 140/89 H Blood Pressure Mean (mm Hg) 100 115 106 Source Monitor Monitor Monitor Position Semi-Fowlers Sitting Sitting Blood Pressure Location Left Arm Left Arm Right Arm History Since Last Visit- (Skip if this is Patient's initial visit) Have you changed medications since your No No last visit? Any new allergies or adverse reactions No No Had a fall/change in ADL's that may No No increase risk of falls Signs or symptoms of abuse and/or No No neglect since last visit Have you been in the hospital since your No No last visit? Has dressing in place as prescribed Yes Yes Has compression in place as prescribed Yes N/A Has offloadiing in place as prescribed N/A N/A Experienced any changes in pain level or No No management Left Footwear Regular Shoe Regular Shoe Regular Shoe Right Footwear Regular Shoe Regular Shoe Regular Shoe Pain Scale: 0-10 Numeric Is Patient Pain Free? No Yes Yes LEFT HAND -Description Burning,Aching -Alleviating Factors/Interventions Medication, Medicate when due Communication Assessment Preferred language Slovak Automatic Bandsaw Tender Required No Able to Read Yes Able to Write Yes Communication Tools None Caregiver Communication Skills No Impairment Impairment Right Hearing Abillity Normal Left Hearing Abillity Normal Visual Assistive Devices Glasses Teaching Assessment Preferences Verbal,Written, Demonstration Barriers to Learning None Readiness To Learn Excellent Willingness to Engage in Self Management High Activies Readiness to Engage in Self Management High Activities Anxiety Level Calm Cooperation Cooperative Perception Coherent Interest in Health Problem Asks Questions Education Importance Acknowledges Need Does Patient Smoke tobacco or other Yes substances Smoking Status Never smoker Is Patient Diabetic No Functional Assessment Recent Decline in Ability to Perform Denies Any Declines Culture/Orthodox/Hall Supervisor Cultural/Orthodox Needs that may affect No Treatment Plan Would you allow our hospital health therapist to No meet you for the purpose of spiritual/ emotional support? Hall Supervisor to contact place of [facility] No 11/19/24 13:34 WC - Today's Visit Information Type of service Follow-up Visit (Physician/PROGRAM DIRECTOR/MORNING SHOW HOST ) Arrival Mode Ambulatory Transfer Assistance None Patient Identification Verified (Name & Yes ) Patient Requires Transmission-Based No Precautions Height and Weight Height Weight Weight in Pounds Weight Measurement Method Body Mass Index (BMI) 30.9 BMI Classification Obese BSA - Lara Vital Signs Temperature (97.8 F-99.1 F) 98.2 F Temperature Source Temporal Pulse Rate (60-100) 82 Pulse Location Monitor Respiratory Rate (12-18) 18 Respiratory rate source Observation Oxygen Delivery Method Blood Pressure (90/60-120/80) 141/79 H Blood Pressure Mean (mm Hg) 99 Source Monitor Position Blood Pressure Location History Since Last Visit- (Skip if this is Patient's initial visit) Have you changed medications since your No last visit? Any new allergies or adverse reactions No Had a fall/change in ADL's that may No increase risk of falls Signs or symptoms of abuse and/or No neglect since last visit Have you been in the hospital since your No last visit? Has dressing in place as prescribed Yes Has compression in place as prescribed Yes Has offloadiing in place as prescribed Yes Experienced any changes in pain level or No management Left Footwear Right Footwear Pain Scale: 0-10 Numeric Is Patient Pain Free? Yes LEFT HAND -Description -Alleviating Factors/Interventions Communication Assessment Preferred foreign language stenographer Required Able to Read Able to Write Communication Tools Caregiver Communication Skills Impairment Right Hearing Abillity Left Hearing Abillity Visual Assistive Devices Teaching Assessment Preferences Barriers to Learning Readiness To Learn Willingness to Engage in Self Management Activies Readiness to Engage in Self Management Activities Anxiety Level Cooperation Perception Interest in Health Problem Education Importance Does Patient Smoke tobacco or other substances Smoking Status Is Patient Diabetic Functional Assessment Recent Decline in Ability to Perform Culture/Orthodox/Hall Supervisor Cultural/Orthodox Needs that may affect Treatment Plan Would you allow our hospital health therapist to meet you for the purpose of spiritual/ emotional support? Hall Supervisor to contact place of [facility] WC - Nurse 1 - General Ulcer Measurement Start: 10/29/24 13:48 Freq: Status: Active Protocol: Activity Type Activity Date Activity User E-sign Co-sign Detail Recorded Client Recorded Date Recorded By Document 10/29/24 13:50 KW [id number] 10/29/24 13:57 KW Document 11/05/24 08:17 KW [id number] 11/05/24 08:21 KW Document 11/12/24 08:13 [facility] [id number] 11/12/24 08:19 BM Document 11/19/24 13:34 DL [id number] 11/19/24 13:40 DL 10/29/24 11/05/24 11/12/24 13:50 08:17 08:13 Wound Center Nurse 1 #1 LT PALM -Combined with other wound No -Current Size (cm) - Length 0.3 0.5 0.1 -Current Size (cm) - Width 0.3 0.5 0.1 -Current Size (cm) - Depth 0.3 0.3 0.1 -Total Square Cm 0.09 0.25 0.01 -Date of Last Picture (Recall this 10/29/24 11/12/24 field) -Photo Taken Yes -Tunneling Yes -Tunneling Position (O'clock) 6 6 -Tunneling Distance (cm) 3.5 2.8 -Exudate Amt Small Small Medium -Exudate Type Serosanguineous Serosanguineous Serous -Wound Margin Distinct, Distinct, Distinct, Outline Outline Outline Attached Attached Attached -Granulation Amt Medium (34-66%) Large (67-100%) Large (67-100%) -Granulation Quality Red [place] Red -Slough/Fibrin No -Necrosis Amt Medium (34-66%) None Present (0 %) -Necrotic Tissue Type Adherent Slough -Structure Exposed -Texture (Kacie-wound Skin Appearance) Assessed Assessed Assessed -Moisture (Kacie-wound Skin Appearance) Assessed Assessed, Assessed, Maceration Maceration -Color (Kacie-wound Skin Appearance) Assessed Assessed Assessed -Temperature (Kacie-wound Skin No Abnormality No Abnormality No Abnormality Appearance) (Pt Warm) (Pt Warm) (Pt Warm) -Tenderness on Palpation (Kacie-wound No No No Skin Appearance) -Ulcer Cleansing Rinsed/ Rinsed/ Rinsed/ Irrigated with Irrigated with Irrigated with Saline Saline Saline -Foul Odor after Cleansing No No No -Anesthetic Used 5% Lidocaine 5% Lidocaine Gel Gel -Wound Comment(s) tiny pin hole type wound. did not probe 11/19/24 13:34 Wound Center Nurse 1 #1 LT PALM -Combined with other wound -Current Size (cm) - Length 0.2 -Current Size (cm) - Width 0.2 -Current Size (cm) - Depth 0.2 -Total Square Cm 0.04 -Date of Last Picture (Recall this field) -Photo Taken -Tunneling -Tunneling Position (O'clock) -Tunneling Distance (cm) -Exudate Amt None Present -Exudate Type -Wound Margin Distinct, Outline Attached -Granulation Amt Small (1-33%) -Granulation Quality [place] -Slough/Fibrin -Necrosis Amt None Present (0 %) -Necrotic Tissue Type -Structure Exposed N/A -Texture (Kacie-wound Skin Appearance) Scarring -Moisture (Kacie-wound Skin Appearance) Maceration -Color (Kacie-wound Skin Appearance) No Abnormality -Temperature (Kacie-wound Skin No Abnormality Appearance) (Pt Warm) -Tenderness on Palpation (Kacie-wound No Skin Appearance) -Ulcer Cleansing Soap and Water -Foul Odor after Cleansing No -Anesthetic Used 5% Lidocaine Gel -Wound Comment(s) WC - Nurse 2 - General Ulcer CM Notes Start: 10/29/24 13:48 Freq: Status: Active Protocol: Activity Type Activity Date Activity User E-sign Co-sign Detail Recorded Client Recorded Date Recorded By Document 10/29/24 14:06 [id number] 10/29/24 14:22 Document 11/05/24 08:41 [id number] 11/05/24 08:45 Document 11/12/24 08:26 DS [id number] 11/12/24 08:30 DS Document 11/19/24 13:51 [id number] 11/19/24 13:53 10/29/24 11/05/24 11/12/24 14:06 08:41 08:26 Wound Center Nurse 2 #1 LT PALM -Time 14:11 08:42 08:26 -Correct Patient Yes Yes Yes -Correct Side, Site, Position Yes Yes Yes -Correct Procedure Yes Yes Yes -Procedure Performed Yes Yes Yes -Type of Procedure Debridement Debridement Debridement -Clinical Debridement Muscle / Fascia Muscle / Fascia Subcutaneous -Tissue Removed Tendon Subcutaneous, Subcutaneous Tendon -Post Debridement (cm) - Length 0.4 0.5 0.2 -Post Debridement (cm) - Width 0.4 0.4 0.2 -Post Debridement (cm) - Depth 0.4 0.5 0.2 -Total Square (Post) (cm) 0.16 0.20 0.04 -Area of Debridement (cm) - Length 0.4 0.5 0.2 -Area of Debridement (cm) - Width 0.4 0.4 0.2 -Total Square (Area) (cm) 0.16 0.20 0.04 -Tunneling No No No -Undermining/Tunneling No No No -Circular Undermining No No No -Wound/Ulcer Outcome Not Healed Not Healed Not Healed -Ulcer Cleansing Rinsed/ Rinsed/ Rinsed/ Irrigated with Irrigated with Irrigated with Saline Saline Saline -Foul Odor after Cleansing No No No -Bioengineered Tissue No No No -Bleeding Controlled with Pressure Pressure Pressure -Treatment Response Procedure Procedure Procedure Tolerated Well Tolerated Well Tolerated Well -Offloading No -Debridement - Subq, 1st 20sq cm Yes -Debridement - Muscle / Fascia, 1st Yes Yes 20sq cm Pain Scale: 0-10 Numeric Is Patient Pain Free? Yes Yes Yes 11/19/24 13:51 Wound Center Nurse 2 #1 LT PALM -Time 13:51 -Correct Patient Yes -Correct Side, Site, Position Yes -Correct Procedure Yes -Procedure Performed Yes -Type of Procedure Debridement -Clinical Debridement Muscle / Fascia -Tissue Removed Fascia -Post Debridement (cm) - Length 0.2 -Post Debridement (cm) - Width 0.4 -Post Debridement (cm) - Depth 0.2 -Total Square (Post) (cm) 0.08 -Area of Debridement (cm) - Length 0.2 -Area of Debridement (cm) - Width 0.4 -Total Square (Area) (cm) 0.08 -Tunneling No -Undermining/Tunneling No -Circular Undermining No -Wound/Ulcer Outcome Not Healed -Ulcer Cleansing Rinsed/ Irrigated with Saline -Foul Odor after Cleansing No -Bioengineered Tissue No -Bleeding Controlled with Pressure -Treatment Response Procedure Tolerated Well -Offloading No -Debridement - Subq, 1st 20sq cm -Debridement - Muscle / Fascia, 1st Yes 20sq cm Pain Scale: 0-10 Numeric Is Patient Pain Free? Yes WC - Nurse 3 - General Ulcer D/C NN Start: 10/29/24 13:48 Freq: Status: Active Protocol: Activity Type Activity Date Activity User E-sign Co-sign Detail Recorded Client Recorded Date Recorded By Document 10/29/24 14:31 JF [id number] 10/29/24 14:32 JF Document 11/05/24 08:59 ML [id number] 11/05/24 09:00 ML Document 11/12/24 08:40 [facility] [id number] 11/12/24 08:42 BMF Document 11/19/24 14:05 BMF [id number] 11/19/24 14:06 BMF 10/29/24 11/05/24 11/12/24 14:31 08:59 08:40 Wound Care Center Nurse 3 #1 LT PALM -Ulcer Cleansing Rinsed/ Rinsed/ Rinsed/ Irrigated with Irrigated with Irrigated with Saline Saline Saline -Foul Odor after Cleansing No No No -Primary Dressing Applied Nugauze, Iodoform 1/2in -Primary Dressing Applied Nugauze, Iodoform 1/4in -Other Dressing iodoform -Primary Dressing Covered/Secured with Dry Gauze, Dry Gauze, Dry Gauze & Secured with Secured with Roll Gauze, Tape Tape Secured with Tape -Nugauze, Iodoform 1/4in 1 -Nugauze, Iodoform 1/2in 1 Left -Compression Wrap Carlos Alberto Wrap Carlos Alberto Wrap -Other carlos alberto to secure Treatment Response Procedure Tolerated Well Pain Scale: 0-10 Numeric Is Patient Pain Free? Yes Yes Yes WC - Visit Discharge Discharge Condition Stable Stable Ambulatory Status Ambulatory Ambulatory Transportation Private Auto Private Auto Medication Reconcilliation completed & Yes provided to patient/care provider Clinical Summary of Care Provided Yes 11/19/24 14:05 Wound Care Center Nurse 3 #1 LT PALM -Ulcer Cleansing Rinsed/ Irrigated with Saline -Foul Odor after Cleansing No -Primary Dressing Applied -Primary Dressing Applied -Other Dressing packed w/ gauze ; pt has iodoform at home -Primary Dressing Covered/Secured with Dry Gauze & Roll Gauze, Secured with Tape -Nugauze, Iodoform 1/4in -Nugauze, Iodoform 1/2in Left -Compression Wrap Carlos Alberto Wrap -Other Treatment Response Procedure Tolerated Well Pain Scale: 0-10 Numeric Is Patient Pain Free? Yes WC - Visit Discharge Discharge Condition Stable Ambulatory Status Ambulatory Transportation Private Auto Medication Reconcilliation completed & provided to patient/care provider Clinical Summary of Care Provided Assessment/Plan Assessment/Plan (1) Open wound, hand: CODE(S): S61.409A - Unspecified open wound of unspecified hand, initial encounter PLAN: Wound improving Continue warm Dial soap soaks twice daily with packing using iodoform until it re-epithelializes Finished Doxycycline. Keep f/u with infectious disease for long-term r ecommendations although no clinic signs of infection at this time (monitor for infection). F/u with me in 1 week
== END 2024-11-23 23:59 | disposition home or self-care (01) ==
LOC: WC 13:30
PROVIDERS: PCP Family Medicine; Referring Provider Student in an Organized Health Care Education/Training Program; Visit Provider Surgery Plastic and Reconstructive Surgery
DX: S61.409A Unspecified open wound of unspecified hand, initial encounter (principal); L98.492 Non-pressure chronic ulcer of skin of other sites with fat layer exposed; E11.9 Type 2 diabetes mellitus without complications; E78.5 Hyperlipidemia, unspecified; G89.29 Other chronic pain; J45.909 Unspecified asthma, uncomplicated; Z79.82 Long term (current) use of aspirin; Z56.9 Unspecified problems related to employment; Z79.51 Long term (current) use of inhaled steroids; I10 Essential (primary) hypertension; K21.9 Gastro-esophageal reflux disease without esophagitis; Z86.16 Personal history of COVID-19
CPT/HCPCS: 11042; 11043; 87070; 87075; 87077; 87186; 87205; 99213; G0463

== ENCOUNTER 2024-11-26 13:12 | Outpatient (RCR) | payer MEDICARE, OTHER, SELFPAY ==
[2024-11-24 01:17] VITALS: BP 141/79; PULSE 82; RESP 18; TEMP 36.8; BMI 30.9
[2024-11-26 13:26] VITALS: BP 137/89; PULSE 93; RESP 16; TEMP 35.9; BMI 30.9
--- NOTE | 2024-11-27 07:49 | PCM.WC.PN ---
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 The procedure was done open by a local orthopedist, and she has been having wound healing problems over the middle portion of the incision at the wrist crease. Patient is not a smoker and is not a diabetic. No post-operative infection. Her only steroid exposure is her budesonide for her asthma. No current numbness or tingling. Her CT symptoms have resolved. The CT was released open. Her orthopedic surgeon has had her doing Silvadene dressings twice daily. Subjective Subjective Progress of Wound: 11/07/24: She has been doing the warm water Dial soaks twice daily and packing with iodoform gauze. She continues to have an open wound with significant depth. No exposed critical structures at this point in the base of wound as I can see. 12 Nov 2024: Doing quite well. Has noticed significant improvement over the past week. She was placed on Doxycycline for positive cultures last week (taken/ordered by DESTATICIZER FEEDER, growing Staphlococcus warneri). Endorses good wound care. 19 Nov 2024: Improvement in the wound again today. Nearly healed over, but some thick callus forming at the wound edge. Endorses good soaks/dressing changes. No pain. No signs of infection. 26 Nov 2024: Doing well overall.No fevers chills or drainage. No pain. Compliant with soaks and dressing changes Objective Data Objective Data Vital Signs: Vital Signs Temp Pulse Resp BP O2 Del Method 96.6 F L 93 16 137/89 H Room Air 11/26/24 13:26 11/26/24 13:26 11/26/24 13:26 11/26/24 13:26 11/26/24 13:26 Oxygen Delivery Method Room Air Weight: 180 lb Body Mass Index (BMI) 30.9 Charges/Coding Procedures Integumentary 111xxx-113xx: [id number] Global Visit Physical Exam Narrative Left Upper Extremity Inspection: The wound has reepithelialized Palpation: No TTP. No fluid collections. Motor: Able to bend and extend all MP, PIP, and DIP joints. Thenar musculature fires with opposition of thumb to other digits (motor branch of median O.K.). Sensory: Intact to light touch on the radial and ulnar borders. Vascular: Finger tips are warm and well perfused with <2 second capillary refill. Debridement Note Debridement Note No debridement was completed: No debridement was completed today Post-Debridement Measurements and Additional Note: Post-Debridement Measurements/Treatment WC - Nurse 1 - General Ulcer Assessment Start: 11/26/24 13:26 Freq: Status: Active Protocol: MICKEY Activity Type Activity Date Activity User E-sign Co-sign Detail Recorded Client Recorded Date Recorded By Document 11/26/24 13:26 [facility] [id number] 11/26/24 13:31 [facility] 11/26/24 13:26 WC - Today's Visit Information Type of service Follow-up Visit (Physician/PRODUCT SAFETY TECHNICAL ASSISTANT ) Arrival Mode Ambulatory Transfer Assistance None Patient Identification Verified (Name & Yes ) Patient Requires Transmission-Based No Precautions Height and Weight Body Mass Index (BMI) 30.9 BMI Classification Obese Vital Signs Temperature (97.8 F-99.1 F) 96.6 F L Temperature Source Temporal Pulse Rate (60-100) 93 Pulse Location Monitor Respiratory Rate (12-18) 16 Respiratory rate source Observation Oxygen Delivery Method Room Air Blood Pressure (90/60-120/80) 137/89 H Blood Pressure Mean (mm Hg) 105 Source Monitor Position Sitting Blood Pressure Location Left Arm History Since Last Visit- (Skip if this is Patient's initial visit) Have you changed medications since your No last visit? Any new allergies or adverse reactions No Had a fall/change in ADL's that may No increase risk of falls Signs or symptoms of abuse and/or No neglect since last visit Have you been in the hospital since your No last visit? Has dressing in place as prescribed Yes Has compression in place as prescribed Yes Has offloadiing in place as prescribed N/A Experienced any changes in pain level or No management Left Footwear Regular Shoe Right Footwear Regular Shoe Pain Scale: 0-10 Numeric Is Patient Pain Free? No WC - Nurse 1 - General Ulcer Measurement Start: 11/26/24 13:26 Freq: Status: Active Protocol: Activity Type Activity Date Activity User E-sign Co-sign Detail Recorded Client Recorded Date Recorded By Document 11/26/24 13:26 [facility] [id number] 11/26/24 13:31 [facility] 11/26/24 13:26 Wound Center Nurse 1 #1 LT PALM -Combined with other wound No -Current Size (cm) - Length 0.1 -Current Size (cm) - Width 0.1 -Current Size (cm) - Depth 0.1 -Total Square Cm 0.01 -Date of Last Picture (Recall this 11/26/24 field) -Photo Taken Yes -Epithelialization Large 67-100% -Texture (Kacie-wound Skin Appearance) Assessed, Scarring -Moisture (Kacie-wound Skin Appearance) Assessed,Dry/ Scaly -Color (Kacie-wound Skin Appearance) Assessed -Temperature (Kacie-wound Skin No Abnormality Appearance) (Pt Warm) -Tenderness on Palpation (Kacie-wound No Skin Appearance) -Ulcer Cleansing Rinsed/ Irrigated with Saline -Foul Odor after Cleansing No -Anesthetic Used 5% Lidocaine Gel - Nurse 2 - General Ulcer CM Notes Start: 11/26/24 13:26 Freq: Status: Active Protocol: Activity Type Activity Date Activity User E-sign Co-sign Detail Recorded Client Recorded Date Recorded By Document 11/26/24 14:12 [id number] 11/26/24 14:13 11/26/24 14:12 Wound Center Nurse 2 -Correct Patient No -Correct Side, Site, Position No -Correct Procedure No -Procedure Performed No -Post Debridement (cm) - Length 0 -Post Debridement (cm) - Width 0 -Post Debridement (cm) - Depth 0 -Total Square (Post) (cm) 0 -Area of Debridement (cm) - Length 0 -Area of Debridement (cm) - Width 0 -Total Square (Area) (cm) 0 Pain Scale: 0-10 Numeric Is Patient Pain Free? Yes - Nurse 3 - General Ulcer D/C NN Start: 11/26/24 13:26 Freq: Status: Active Protocol: Activity Type Activity Date Activity User E-sign Co-sign Detail Recorded Client Recorded Date Recorded By Document 11/26/24 14:13 [id number] 11/26/24 14:14 11/26/24 14:13 Is Patient Pain Free? Yes - Visit Discharge Discharge Condition Stable Ambulatory Status Ambulatory Transportation Private Auto Medication Reconcilliation completed & Yes provided to patient/care provider Clinical Summary of Care Provided Yes Assessment/Plan Assessment/Plan (1) Open wound, hand: CODE(S): S61.409A - Unspecified open wound of unspecified hand, initial encounter PLAN: Healed Follow-up as needed (discussed return precautions extensively) Patient happy with the plan
--- NOTE | 2024-11-27 12:13 | WC ---
PHOTO LEFT PALM 11/26/24
== END 2024-12-21 10:54 | disposition home or self-care (01) ==
LOC: WC 13:12
PROVIDERS: PCP Family Medicine; Referring Provider Student in an Organized Health Care Education/Training Program; Visit Provider Surgery Plastic and Reconstructive Surgery
DX: S61.409D Unspecified open wound of unspecified hand, subsequent encounter (principal); J45.909 Unspecified asthma, uncomplicated
CPT/HCPCS: 99213; G0463

== ENCOUNTER → 2024-12-31 | Outpatient (CLI) | payer MEDICARE, OTHER, SELFPAY ==
--- NOTE | 2024-12-31 07:46 | BI_ITS ---
PROCEDURE: SCRN MAMM (CAD)W/JONH BILAT REASON FOR EXAM: F, Age 69 y/o, routine annual follow-up. No family history. TECHNIQUE: Bilateral screening digital breast tomosynthesis with 2D and 3D images. Computer aided detection. COMPARISON: Prior exam(s) dating back to November 23, 2023.. FINDINGS: There are scattered areas of fibroglandular density. Stable 7 mm well-defined nodule in the deep midportion of the right breast. This most likely represents a small lymph node. Correlation with ultrasound recommended. No suspicious masses, areas of developing architectural distortion, or suspicious calcifications. BI/SCRN MAMM (CAD)W/JONH BILAT IMPRESSION: BI-RADS 0: INCOMPLETE - NEED ADDITIONAL IMAGING EVALUATION. Follow-up code: Sonographic correlation. The patient will be notified of the results by letter. Reading Location: [place] [id number]
== END | disposition home or self-care (01) ==
LOC: OPBI 07:43
PROVIDERS: PCP Family Medicine; Referring Provider Obstetrics & Gynecology; Visit Provider Obstetrics & Gynecology
DX: Z12.31 Encounter for screening mammogram for malignant neoplasm of breast (principal)
CPT/HCPCS: 77063; 77067

== ENCOUNTER → 2025-01-07 | Outpatient (CLI) | payer MEDICARE, OTHER, SELFPAY ==
--- NOTE | 2025-01-07 07:48 | US_ITS ---
PROCEDURE: BREAST LIMITED UNILATERAL REASON FOR EXAM: NODULE COMPARISON: Comparison is made with prior mammogram dated December 31, 2024. TECHNIQUE: Targeted ultrasound of the right breast was obtained. FINDINGS: RIGHT: The entire right breast was examined with ultrasound. The mammographic abnormality corresponds to a 5 mm x 9 mm x 4 mm benign-appearing lymph node at the 7 o'clock position of the breast at 6 cm from the nipple. US/Breast Limited Unilateral IMPRESSION: The mammographic abnormality corresponds to a 5 mm x 9 mm x 4 mm benign-appeari ng lymph node at the 7 o'clock position of the breast at 6 cm from the nipple. BI-RADS 2: BENIGN. RECOMMEND ANNUAL MAMMOGRAPHIC SCREENING. [facility]
== END | disposition home or self-care (01) ==
LOC: OPUS 07:47
PROVIDERS: PCP Family Medicine; Referring Provider Obstetrics & Gynecology; Visit Provider Obstetrics & Gynecology
DX: R92.8 Other abnormal and inconclusive findings on diagnostic imaging of breast (principal)
CPT/HCPCS: 76642

== ENCOUNTER 2025-01-23 07:55 | Day surgery (SDC) | payer MEDICARE, OTHER, SELFPAY ==
--- NOTE | 2025-01-18 12:33 | PAT.ANESEVAL ---
Pre-Assessment Diagnosis/Proposed Procedure Planned Operative Procedure(s): CSCOPE OA Anesthesia History Anesthesia History - poultry pathologist: Anesthesia History - poultry pathologist Hx Hospitalization No 01/18/25 11:46 Any Problems With Anesthesia Yes: N,V 01/18/25 11:46 Cholinesterase deficiency No 01/18/25 11:46 You/Your Family Experience No 01/18/25 11:46 fever (hyperthermia) with Relationship Recent Exposure to Contagious No 09/03/13 17:05 Disease Does patient have nerve No 01/18/25 11:46 stimulator Patient instructed to have device shut off --Does patient have Pacemaker or ICD? When Was Last Pacemaker Check QUESTION #4 FULL TEXT: You/Your Family Experience fever (hyperthermia) with Anesthesia Last Oral Intake Last Oral intake: Last Oral Intake NPO since Meds taken in AM with sips of water? Meds patient instructed to take am of surgery PONV PONV - poultry pathologist: PONV - poultry pathologist Female Yes 01/18/25 11:46 HX of Motion Sickness No 01/18/25 11:46 HX of N/V After Surgery Yes 01/18/25 11:46 Non-Smoker Yes 01/18/25 11:46 Duration of Surgery greater No 01/18/25 11:46 than 60 minutes Number of Risk Factors 3 01/18/25 11:46 PONV Score Moderate Risk 01/18/25 11:46 Height & Weight Height & Weight: Anesthesia: Height & Weight Height 5 ft 4 in 11/14/24 13:18 Respiratory Assessment Respiratory Assessment - poultry pathologist: Respiratory Tract Infection Hx - poultry pathologist Hx Respiratory Tract Infection No 01/18/25 11:46 STOP Sleep Apnea STOP Sleep Apnea - poultry pathologist: STOP Sleep Apnea - poultry pathologist Hx Hypertension Yes: CONTROLLED WITH MED 01/18/25 11:46 Hx Sleep Apnea No 01/18/25 11:46 CPAP No 01/31/22 21:53 BIPAP No 01/31/22 21:53 Do you snore loudly (louder No 01/18/25 11:46 than talking or can be heard Do you often feel tired/ Yes 01/18/25 11:46 fatigued/ sleepy during daytime? Has anyone observed you stop No 01/18/25 11:46 breathing during sleep? STOP Results Positive 01/18/25 11:46 QUESTION #5 FULL TEXT : Do you snore loudly (louder than talking or can be heard through closed doors)? 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 Specify any problems Hx of Preganancy in last 3 No 01/18/25 11:46 Months Nurse Filling Out Transfusion DSCHRIBER 01/18/25 11:46 & Questions: Date: 01/18/25 01/18/25 11:46 Time: 11:48 01/18/25 11:46 Patient unable to answer at this time (ie. confused, unrespo /Reproduction History /Reproductive History - poultry pathologist: /Reproductive Hx- poultry pathologist Hx Now No 01/18/25 11:46 Gestational Age (in weeks): EDC: Hx Hx Para Hx Section SAB No 01/18/25 11:46 PFSH Medical History (Updated 01/18/25 @ 11:55 by Melva Salazar) Wears dentures Restless legs History of diverticulitis Gastric reflux Shortness of breath on exertion Leg cramps History of echocardiogram History of stress test Open wound, hand Anemia Non-smoker Anxiety and depression Asthma HLD (hyperlipidemia) HTN (hypertension) Home Medications ?Medication ?Instructions ?Recorded ?Last Taken ?Type esomeprazole magnesium 40 mg 40 mg PO DAILY 09/03/13 09/01/13 08:00 History capsule,delayed release (Nexium) aspirin 81 mg chewable tablet 81 mg PO DAILY@0800 ##30 09/04/13 01/16/25 Rx calcium 600 mg PO/SL DAILY 01/31/22 Unknown History cyanocobalamin (vitamin B-12) 1,000 mcg subcut .[id number] 01/31/22 Unknown History 1,000 mcg/mL injection solution ergocalciferol (vitamin D2) 1,250 1,250 mcg PO SAAB 03/26/22 Unknown History mcg (50,000 unit) capsule (Vitamin D2) multivitamin 1 tab PO DAILY 03/26/22 Unknown History hydrochlorothiazide 25 mg tablet 25 mg PO DAILY 06/22/23 Unknown History albuterol sulfate 90 mcg/actuation 2 puff inhalation Q4H PRN PRN 07/26/24 Unknown Rx aerosol inhaler (Ventolin HFA) Shortness Of Breath #8.5 grams budesonide 1 mg/2 mL suspension 1 mg (2 mL) inhalation BID #60 mL 07/26/24 Unknown Rx for nebulization cetirizine 10 mg capsule (Zyrtec) 10 mg PO DAILY #90 caps 07/26/24 Unknown Rx montelukast 10 mg tablet 10 mg PO QPM #90 tabs 07/26/24 Unknown Rx (Singulair) ipratropium 0.5 mg-albuterol 3 mg 3 ml inhalation TID PRN Shortness 07/27/24 Unknown Rx (2.5 mg base)/3 mL nebulization Of Breath #180 mL soln liver extract 1 cap PO DAILY 01/18/25 Unknown History lorazepam 0.5 mg tablet 0.5 mg PO PRN PRN anxiety 01/18/25 Unknown History Allergy/AdvReac Type Severity Reaction Status Date / Time Penicillins Allergy Hives Verified 01/18/25 11:43 morphine AdvReac Hives Verified 01/18/25 11:43 Family History Mother CAD (coronary artery disease) CABG age 59. Hypertension Heart disease Myocardial infarction Father CAD (coronary artery disease) [place] in his 70s. Hypertension Heart disease Myocardial infarction Brother Myocardial infarction Diabetes Sister COPD (chronic obstructive pulmonary disease) Surgical History (Updated 01/18/25 @ 11:55 by Melva Salazar) Hx of colonoscopy History of appendectomy S/P bilateral cataract extraction History of uterine suspension procedure Status post hysteroscopic ablation of endometrium H/O arthroscopic knee surgery History of carpal tunnel release Social History (Updated 11/14/24 @ 13:12 by Emma Mclaughlin) household members: other details: None, , spouse passed 2002. current occupational status: employed Smoking Status: Never smoker alcohol intake: never substance use type: does not use Audit: Pertinent Findings Pertinent Findings EKG Perinent findings: 02/01/2022. Normal sinus rhythm 80 bpm. Stress test pertinent findings: 02/01/2022. Normal perfusion stress test. EF 60% Echo (EF%) pertinent findings: 01/31/2022 EF 60% normal size and function. Pulmonary function results/spirometer pertinent findings: 02/18/2022. Partially reversible moderate mixed ventilatory defect with disproportionate reduction in diffusing capacity. Recommendation Anesthesia Recommendation Anesthesia recommendation: OPTIMIZED for anesthesia
[2025-01-23] VITALS (7 sets, daily range): BP systolic 101–122; BP diastolic 68–96; PULSE 79–102; RESP 16–18; TEMP 36.1–36.9; O2SAT 95–98; BMI 31.0
--- NOTE | 2025-01-23 08:12 | PCM.PRE.AN2 ---
ASA Classification* ASA Classification ASA Classification: 2 Assessment & Plan Anesthesia* Anesthesia Assessment Anesthesia Assessment: Discussed sedation and/or anesthesia options, risks, benefits, and alternatives with patient/parents/legal guardian/POA. Questions invited. The patient/parents/legal guardian/POA seems to understand and agrees to proceed with anesthesia plan. Reviewed the physical assessment, medical history, allergy history and patient home medications list prior to surgery/procedure/anesthetic and documented any changes. Performed airway and anesthesia risk assessments. Anesthesia Type Anesthesia Type: MAC Anesthesia Focused Assessment* Airway Assessment Mouth opens: >3 cm Mallampati Score: II Focused Labs Anesthesia Preop lab: CBC WBC 6.7 K/mm3 (4.4-11.0) 09/05/24 11:16 09/05/24 RBC 4.88 M/mm3 (4.2-5.4) 09/05/24 11:16 09/05/24 Hgb 13.8 g/dL (12.0-15.0) 09/05/24 11:16 09/05/24 Hct 42.0 % (37-47) 09/05/24 11:16 09/05/24 Plt Count 311 K/mm3 (150-450) 09/05/24 11:16 09/05/24 CHEMISTRY Potassium 3.6 mmol/L (3.5-5.1) 09/05/24 11:16 09/05/24 Sodium 133 mmol/L (136-145) L 09/05/24 11:16 09/05/24 Magnesium 2.0 mg/dL (1.6-2.6) 07/09/22 07:14 07/09/22 BUN 18 mg/dL (7-18) 09/05/24 11:16 09/05/24 Creatinine 1.00 mg/dL (0.55-1.02) 09/05/24 11:16 09/05/24 Glucose 95 mg/dL (74-106) 09/05/24 11:16 09/05/24 POC Glucose 146 mg/dL (74-106) H 02/01/22 11:16 02/01/22 TSH 0.842 uIU/mL (0.358-3.740) 09/05/24 11:16 09/05/24 COAG Pre-Assessment Diagnosis/Proposed Procedure Planned Operative Procedure(s): CSCOPE OA Anesthesia History Anesthesia History - laboratory monitor: Anesthesia History - laboratory monitor Hx Hospitalization No 01/18/25 11:46 Any Problems With Anesthesia Yes: N,V 01/18/25 11:46 Cholinesterase deficiency No 01/18/25 11:46 You/Your Family Experience No 01/18/25 11:46 fever (hyperthermia) with Relationship Recent Exposure to Contagious No 09/03/13 17:05 Disease Does patient have nerve No 01/18/25 11:46 stimulator Patient instructed to have device shut off --Does patient have Pacemaker or ICD? When Was Last Pacemaker Check QUESTION #4 FULL TEXT: You/Your Family Experience fever (hyperthermia) with Anesthesia Last Oral Intake Last Oral intake: Last Oral Intake NPO since Meds taken in AM with sips of water? Meds patient instructed to take am of surgery PONV PONV - laboratory monitor: PONV - laboratory monitor Female Yes 01/18/25 11:46 HX of Motion Sickness No 01/18/25 11:46 HX of N/V After Surgery Yes 01/18/25 11:46 Non-Smoker Yes 01/18/25 11:46 Duration of Surgery greater No 01/18/25 11:46 than 60 minutes Number of Risk Factors 3 01/18/25 11:46 PONV Score Moderate Risk 01/18/25 11:46 Height & Weight Height & Weight: Anesthesia: Height & Weight Height 5 ft 4 in 11/14/24 13:18 Respiratory Assessment Respiratory Assessment - laboratory monitor: Respiratory Tract Infection Hx - laboratory monitor Hx Respiratory Tract Infection No 01/18/25 11:46 STOP Sleep Apnea STOP Sleep Apnea - laboratory monitor: STOP Sleep Apnea - laboratory monitor Hx Hypertension Yes: CONTROLLED WITH MED 01/18/25 11:46 Hx Sleep Apnea No 01/18/25 11:46 CPAP No 01/31/22 21:53 BIPAP No 01/31/22 21:53 Do you snore loudly (louder No 01/18/25 11:46 than talking or can be heard Do you often feel tired/ Yes 01/18/25 11:46 fatigued/ sleepy during daytime? Has anyone observed you stop No 01/18/25 11:46 breathing during sleep? STOP Results Positive 01/18/25 11:46 QUESTION #5 FULL TEXT : Do you snore loudly (louder than talking or can be heard through closed doors)? 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 Specify any problems Hx of Preganancy in last 3 No 01/18/25 11:46 Months Nurse Filling Out Transfusion DSCHRIBER 01/18/25 11:46 & Questions: Date: 01/18/25 01/18/25 11:46 Time: 11:48 01/18/25 11:46 Patient unable to answer at this time (ie. confused, unrespo /Reproduction History /Reproductive History - laboratory monitor: /Reproductive Hx- laboratory monitor Hx Now No 01/18/25 11:46 Gestational Age (in weeks): EDC: Hx Hx Para Hx Section SAB No 01/18/25 11:46 PFSH Medical History Wears dentures Restless legs History of diverticulitis Gastric reflux Shortness of breath on exertion Leg cramps History of echocardiogram History of stress test Open wound, hand Anemia Non-smoker Anxiety and depression Asthma HLD (hyperlipidemia) HTN (hypertension) Home Medications ?Medication ?Instructions ?Recorded ?Last Taken ?Type esomeprazole magnesium 40 mg 40 mg PO DAILY 09/03/13 01/23/25 History capsule,delayed release (Nexium) aspirin 81 mg chewable tablet 81 mg PO DAILY@0800 ##30 09/04/13 01/16/25 Rx cyanocobalamin (vitamin B-12) 1,000 mcg subcut .[id number] 01/31/22 Unknown History 1,000 mcg/mL injection solution ergocalciferol (vitamin D2) 1,250 1,250 mcg PO SAAB 03/26/22 01/22/25 History mcg (50,000 unit) capsule (Vitamin D2) multivitamin 1 tab PO DAILY 03/26/22 01/22/25 History hydrochlorothiazide 25 mg tablet 25 mg PO DAILY 06/22/23 01/22/25 History albuterol sulfate 90 mcg/actuation 2 puff inhalation Q4H PRN PRN 07/26/24 01/23/25 Rx aerosol inhaler (Ventolin HFA) Shortness Of Breath #8.5 grams budesonide 1 mg/2 mL suspension 1 mg (2 mL) inhalation BID #60 mL 07/26/24 Unknown Rx for nebulization cetirizine 10 mg capsule (Zyrtec) 10 mg PO DAILY #90 caps 07/26/24 01/22/25 Rx montelukast 10 mg tablet 10 mg PO QPM #90 tabs 07/26/24 01/21/25 Rx (Singulair) ipratropium 0.5 mg-albuterol 3 mg 3 ml inhalation TID PRN Shortness 07/27/24 Unknown Rx (2.5 mg base)/3 mL nebulization Of Breath #180 mL soln liver extract 1 cap PO DAILY 01/18/25 01/22/25 History lorazepam 0.5 mg tablet 0.5 mg PO PRN PRN anxiety 01/18/25 Unknown History Allergy/AdvReac Type Severity Reaction Status Date / Time Penicillins Allergy Hives Verified 01/23/25 08:10 morphine AdvReac Hives Verified 01/23/25 08:10 Family History Mother CAD (coronary artery disease) CABG age 59. Hypertension Heart disease Myocardial infarction Father CAD (coronary artery disease) [place] in his 70s. Hypertension Heart disease Myocardial infarction Brother Myocardial infarction Diabetes Sister COPD (chronic obstructive pulmonary disease) Surgical History Hx of colonoscopy History of appendectomy S/P bilateral cataract extraction History of uterine suspension procedure Status post hysteroscopic ablation of endometrium H/O arthroscopic knee surgery History of carpal tunnel release Social History household members: other details: None, , spouse passed 2002. current occupational status: employed Smoking Status: Never smoker alcohol intake: never substance use type: does not use Review of Systems (Anesthesia) ROS Narrative System reviewed and no additional complaints, except as documented.
--- NOTE | 2025-01-23 09:00 | COLBX_PTH ---
PATIENT: GAUTAM SHULTZ LOC: EN U#:[id number] AGE/SX: 69/F ROOM: RE01/23/[address]: Dr. Javier Shirley DO : 1955 BED: DIS: 01/23/2025 SPEC #: [id number] RECD: 01/23/25 12:33 STATUS: YURIY JUANCARLOS #: [id number] SHARRON: 01/23/25 09:[address]: Javier Shirley DEPT: SURGICAL PATHOLOGY RECD BY: Jacob German ENTERED: 01/23/25 13:46 SP TYPE: COLON BX OTHR DR: Dr. Shweta Weaver DO Tissues: A - SPLENIC FLEXURE Procedures: Surgery Specimen Level IV HEADER OPERATION: Colonoscopy with biopsy PRE-OP DIAGNOSIS: Encounter for screening for malignant neoplasm of colon TISSUE SUBMITTED: A- Splenic flexure polyp biopsy MICROSCOPIC DIAGNOSIS A. Colon, Splenic Flexure, Polyp, Biopsy: - Tubular adenoma. MICROSCOPIC DESCRIPTION Slides are reviewed. GROSS DESCRIPTION A. Received in formalin in a container labeled with the patient's name, date of , and splenic flexure polyp biopsy are 3 villanueva-pink fragments of mucosal tissue ranging from 0.3 x 0.2 x 0.2 cm to 0.5 x 0.3 x 0.2 cm. Submitted in toto in A1. SB 01/23/2025 CPT:78643
--- NOTE | 2025-01-23 09:31 | PCM.HP.STD ---
[facility] - General General Date of Admission: 01/23/25 Date of Service: 01/23/25 Chief Complaint: Screening colonoscopy HPI Narrative GAUTAM SHULTZ, is a 69 F who presents today for screening colonoscopy. She had a colonoscopy approximately 12 years ago and it was normal. She has past medical history of asthma, gastroesophageal reflux disease and high blood pressure. She is not currently having any problems at this time. [facility] Medical History Wears dentures Restless legs History of diverticulitis Gastric reflux Shortness of breath on exertion Leg cramps History of echocardiogram History of stress test Open wound, hand Anemia Non-smoker Anxiety and depression Asthma HLD (hyperlipidemia) HTN (hypertension) Home Medications ?Medication ?Instructions ?Recorded ?Last Taken ?Type esomeprazole magnesium 40 mg 40 mg PO DAILY 09/03/13 01/23/25 History capsule,delayed release (Nexium) aspirin 81 mg chewable tablet 81 mg PO DAILY@0800 ##30 09/04/13 01/16/25 Rx cyanocobalamin (vitamin B-12) 1,000 mcg subcut .[id number] 01/31/22 Unknown History 1,000 mcg/mL injection solution ergocalciferol (vitamin D2) 1,250 1,250 mcg PO SAAB 03/26/22 01/22/25 History mcg (50,000 unit) capsule (Vitamin D2) multivitamin 1 tab PO DAILY 03/26/22 01/22/25 History hydrochlorothiazide 25 mg tablet 25 mg PO DAILY 06/22/23 01/22/25 History albuterol sulfate 90 mcg/actuation 2 puff inhalation Q4H PRN PRN 07/26/24 01/23/25 Rx aerosol inhaler (Ventolin HFA) Shortness Of Breath #8.5 grams budesonide 1 mg/2 mL suspension 1 mg (2 mL) inhalation BID #60 mL 07/26/24 Unknown Rx for nebulization cetirizine 10 mg capsule (Zyrtec) 10 mg PO DAILY #90 caps 07/26/24 01/22/25 Rx montelukast 10 mg tablet 10 mg PO QPM #90 tabs 07/26/24 01/21/25 Rx (Singulair) ipratropium 0.5 mg-albuterol 3 mg 3 ml inhalation TID PRN Shortness 07/27/24 Unknown Rx (2.5 mg base)/3 mL nebulization Of Breath #180 mL soln liver extract 1 cap PO DAILY 01/18/25 01/22/25 History lorazepam 0.5 mg tablet 0.5 mg PO PRN PRN anxiety 01/18/25 Unknown History Allergy/AdvReac Type Severity Reaction Status Date / Time Penicillins Allergy Hives Verified 01/23/25 08:10 morphine AdvReac Hives Verified 01/23/25 08:10 Family History Mother CAD (coronary artery disease) CABG age 59. Hypertension Heart disease Myocardial infarction Father CAD (coronary artery disease) [place] in his 70s. Hypertension Heart disease Myocardial infarction Brother Myocardial infarction Diabetes Sister COPD (chronic obstructive pulmonary disease) Surgical History Hx of colonoscopy History of appendectomy S/P bilateral cataract extraction History of uterine suspension procedure Status post hysteroscopic ablation of endometrium H/O arthroscopic knee surgery History of carpal tunnel release Social History household members: other details: None, , spouse passed 2002. current occupational status: employed Smoking Status: Never smoker alcohol intake: never substance use type: does not use ROS Constitutional Constitutional: Denies fatigue, fever(s), poor appetite, weight gain or weight loss Gastrointestinal Gastrointestinal: Denies belching, bloating, change in bowel habits, change in stool character, chewing difficulty, coffee ground emesis, constipation, cramping, diarrhea, dyspepsia, dysphagia, early satiety, excessive flatus, fecal incontinence, heartburn, hematemesis, hematochezia, hemorrhoids, loose stools, melena, nausea, odynophagia, rectal bleeding, tenesmus, vomiting or weight changes Vital Signs Vital Signs Vital Signs: 01/23/25 08:12 01/23/25 08:12 Temperature 97.0 F L Temperature Source Temporal Pulse Rate 102 H Respiratory Rate 18 Respiratory Pattern Normal Blood Pressure 122/88 H Blood Pressure Mean 99 Blood Pressure Source Monitor Blood Pressure Position Supine Blood Pressure Location Left Arm Pulse Ox 98 Oxygen Delivery Method Room Air Weight Weight: 180 lb 12.465 oz Body Mass Index (BMI) 31.0 Physical Exam Const alert, oriented x3, no apparent distress and healthy appearing General Appearance: cooperative GI normal to inspection, nondistended, normoactive bowel sounds, soft to palpation, non-tender and non-distended Percussion: normal to percussion Rectal Exam: deferred Assessment & Plan Assessment/Plan (1) Encounter for screening for malignant neoplasm of colon: PLAN: She was explained alternatives, risk and benefits including withstanding bleeding, infection, sepsis, perforation, need for emergent urgent . She will have an ASA of 3.
--- NOTE | 2025-01-23 09:57 | OP.CCLET_ITS ---
01/23/2025 Shweta Weaver [address] [place] [address] Re : Colonoscopy procedure for Veronica Byrnes Dear Dr. Weaver This procedure was performed on Thursday, January 23, 2025. My impressions and recommendations are as follows: Impressions : - Diverticulosis in the recto-sigmoid colon and in the sigmoid colon. - One 5 mm polyp at the splenic flexure, removed with a jumbo cold forceps. Resected and retrieved. Recommendations : - Repeat colonoscopy in 5 years for surveillance. - Continue present medications. My findings are described in the full procedure note, which is enclosed. If I can be of further assistance, please feel free to contact me at . Sincerely, Javier Shirley, 01/23/2025 9:56:25 AM This report has been signed electronically.
--- NOTE | 2025-01-23 09:57 | OP.COLON_ITS ---
Patient Name: Veronica Byrnes Procedure Date: 01/23/2025 9:32 AM Date of : 1955 Age: 69 Procedure: Colonoscopy Indications: Screening for colorectal malignant neoplasm Providers: Javier Shirley DO Referring MD: Shweta Weaver Medicines: Monitored Anesthesia Care Patient Profile: This is a 69 year old female. Refer to note in patient chart for documentation of history and physical. Last Colonoscopy: more than 10 years ago. Complications: No immediate complications. Procedure: Pre-Anesthesia Assessment: - Prior to the procedure, a History and Physical was performed, and patient medications and allergies were reviewed. The patient is competent. The risks and benefits of the procedure and the sedation options and risks were discussed with the patient. All questions were answered and informed consent was obtained. Patient identification and proposed procedure were verified by the physician in the pre-procedure area. Mental Status Examination: alert and oriented. Airway Examination: normal oropharyngeal airway and neck mobility. Respiratory Examination: clear to auscultation. CV Examination: normal. Prophylactic Antibiotics: The patient does not require prophylactic antibiotics. Prior Anticoagulants: The patient has taken no anticoagulant or antiplatelet agents except for NSAID medication. ASA Grade Assessment: II - A patient with mild systemic disease. After reviewing the risks and benefits, the patient was deemed in satisfactory condition to undergo the procedure. The anesthesia plan was to use monitored anesthesia care (MAC). Immediately prior to administration of medications, the patient was re-assessed for adequacy to receive sedatives. The heart rate, respiratory rate, oxygen saturations, blood pressure, adequacy of pulmonary ventilation, and response to care were monitored throughout the procedure. The physical status of the patient was re-assessed after the procedure. After I obtained informed consent, the scope was passed under direct vision. Throughout the procedure, the patient's blood pressure, pulse, and oxygen saturations were monitored continuously. The Colonoscope was introduced through the anus and advanced to the cecum, identified by appendiceal orifice and ileocecal valve. The colonoscopy was performed without difficulty. The patient tolerated the procedure well. The quality of the bowel preparation was adequate. The ileocecal valve, appendiceal orifice, and rectum were photographed. Scope In: 9:42:31 AM Scope Withdrawal Time 0 hours 7 minutes 35 seconds Scope Out: 9:51:49 AM Total Procedure Duration Time 0 hours 9 minutes 18 seconds Findings: The perianal and digital rectal examinations were normal. Multiple small and large-mouthed diverticula were found in the recto-sigmoid colon and sigmoid colon. A 5 mm polyp was found in the splenic flexure. The polyp was sessile. The polyp was removed with a jumbo cold forceps. Resection and retrieval were complete. Verification of patient identification for the specimen was done. Estimated blood loss was minimal. Impression: - Diverticulosis in the recto-sigmoid colon and in the sigmoid colon. - One 5 mm polyp at the splenic flexure, removed with a jumbo cold forceps. Resected and retrieved. Recommendation: - Repeat colonoscopy in 5 years for surveillance. - Continue present medications. Procedure Code(s): --- Professional --- 04292, Colonoscopy, flexible; with biopsy, single or multiple CPT copyright 2021 [employer]. All rights reserved. The codes documented in this report are preliminary and upon clinical coder review may be revised to meet current compliance requirements. Javier Shirley DO 01/23/2025 9:56:25 AM This report has been signed electronically. Number of Addenda: 0 Note Initiated On: 01/23/2025 9:32 AM
--- NOTE | 2025-01-23 10:00 | PCM.POST.ANE ---
Anesthesia: Postop Eval I Current Vital Signs Temperature: 97.9 F Pulse Rate: 79 Blood Pressure: 109/71 Respiratory Rate: 16 Pulse Ox: 96 Oxygen Delivery Method: Room Air Assessment Airway patent: Yes Spontaneous unlabored respirations: Yes Mental status: Awake and Calm nausea: No Vomiting: No Anesthesia Complication: No Fluid Hydration Crystalloid volume administer (ml): 30 Total IV fluid infused: 30 Progress Note Anesthesia document: Postop Eval 1 completed: Yes
--- NOTE | 2025-01-23 10:28 | PCM.POSTANE2 ---
Anesthesia Postop Eval I Sum Postop Eval Completion status Anesthesia document: Postop Eval 1 completed: Yes Anesthesia Postop Eval I Summary Anesthesia Postop Eval I Summary: Anesthesia Postop Eval I: Assessment Summary Airway patent Yes 01/23/25 10:21 [email or web address] Spontaneous unlabored Yes 01/23/25 10:21 [email or web address] respirations Mental status Awake,Calm 01/23/25 10:21 [email or web address] nausea No 01/23/25 10:21 [email or web address] Vomiting No 01/23/25 10:21 [email or web address] Anesthesia Postop Eval I: Fluid Summary Crystalloid volume administer 30 01/23/25 10:21 [email or web address] (ml) Colloids volume administered ( ml) Blood Product volume administered (ml) Total IV fluid infused 30 01/23/25 10:21 [email or web address] Anesthesia Postop Eval I: Summary Notes Anesthesia Complication No 01/23/25 10:21 [email or web address] Anesthesia Complication Comment: Post-operative progress note Anesthesia: Postop Eval II Evaluation Mental status: Awake Pain Level: 0 nausea: No Vomiting: No
== END 2025-01-23 10:30 | disposition home or self-care (01) ==
LOC: EN 07:57 → AC 07:58
PROVIDERS: PCP Family Medicine; Referring Provider Family Medicine; Visit Provider Internal Medicine Gastroenterology
PROC: 0DJD8ZZ Inspection of Lower Intestinal Tract, Via Natural or Artificial Opening Endoscopic (ICD-10-PCS; CPT 45378; principal; 2025-01-23 08:55)
DX: Z12.11 Encounter for screening for malignant neoplasm of colon (principal); K57.30 Diverticulosis of large intestine without perforation or abscess without bleeding; E78.5 Hyperlipidemia, unspecified; D12.3 Benign neoplasm of transverse colon; I10 Essential (primary) hypertension; K21.9 Gastro-esophageal reflux disease without esophagitis; Z79.82 Long term (current) use of aspirin; Z79.51 Long term (current) use of inhaled steroids; Z79.899 Other long term (current) drug therapy
CPT/HCPCS: 45380; 88305; A4216; J2405

== ENCOUNTER → 2025-02-20 | Outpatient (CLI) | payer MEDICARE, OTHER, SELFPAY ==
--- NOTE | 2025-02-20 15:39 | BD_ITS ---
PROCEDURE: DEXA BONE DENSITY STUDY 02/20/2025 REASON FOR EXAM: F, age 69 y/o . Postmenopausal. TECHNIQUE: DEXA scan of sites with data reported below. Scanner utilized: [employer]. REFERENCE LINKS: [facility] Position[facility] COMPARISON: DEXA examination dated 06/29/2022 FINDINGS: BMD and T-SCORES Lumbar spine: 0.824 g/cm2, T-score -1.7 Levels: L1 through L4 Left femoral neck: 0.628 g/cm2, T-score -2.0 Left total hip: 0.799 g/cm2, T-score -1.9. Change from prior: -3.6%. Right femoral neck: 0.605 g/cm2, T-score -2.2 Right total hip: 0.761 g/cm2, T-score -1.5 Change from prior: 1%. The World Health Organization has defined the following categories based on bone density: Normal bone density: T-score equal to or greater than -1.0 Osteopenia: T-score between -1.0 and -2.5 Osteoporosis: T-score equal to or less than -2.5 FRAX (or Comparable) Fracture Risk Assessment: 10 Year Probability of Fracture: Major Osteoporotic Fracture: 23% Hip Fracture: 5.9% (Note: FRAX is not to be reported in setting of normal range bone density, osteoporosis on DEXA, known history of osteoporosis, prior osteoporotic hip or vertebral fracture, or for any patient undergoing pharmacological treatment for bone loss.) The National Osteoporosis Foundation (NOF) recommends pharmacological treatment for patients with a FRAX 10-year risk of 3% or higher for a hip fracture, or 20% or higher for a major osteoporotic fracture, to prevent osteoporosis and reduce fracture risk. The patient does meet the pharmacological treatment recommendations for prevention of osteoporosis. BD/Dexa Bone Density Study IMPRESSION: OSTEOPENIA. Recommend follow-up as clinically warranted. Reading Location: [id number]
== END | disposition home or self-care (01) ==
PROVIDERS: PCP Family Medicine; Referring Provider Family Medicine; Visit Provider Family Medicine
DX: M81.0 Age-related osteoporosis without current pathological fracture (principal)
CPT/HCPCS: 77080

== ENCOUNTER → 2025-10-07 | Outpatient (CLI) | payer MEDICARE, OTHER, SELFPAY ==
[2025-10-07 12:24] LABS: Hematocrit 39.1 % (37-47); Hemoglobin 12.6 g/dL (12.0-15.0); Immature Granulocytes Count 0.030 X10^3/uL (0.0-0.0); Mean Corp Hgb Conc 32.2 g/dL (32-36); Mean Corpuscular Volume 85.6 fL (81-99); Mean Platelet Vol. 11.0 fl (6.2-12.0); NRBC Flagged by Analyzer 0 % (0-5); Platelet Count 287 K/mm3 (150-450); RBC Distribution Width CV 13.9 % (11.6-14.6); RBC Distribution Width SD 43.0 fl (35.1-43.9); Red Blood Count 4.57 M/mm3 (4.2-5.4); White Blood Count 6.6 K/mm3 (4.4-11.0)
[2025-10-07 12:48] LABS: AST(SGOT) 19 U/L (<=31); Alanine Aminotransfer ALT/SGPT 11 U/L (<=34); Albumin, Serum 4.1 g/dL (3.4-4.8); Alkaline Phosphatase 93 U/L (35-104); Anion Gap 11 (5-15); BUN 17 mg/dL (4-19); BUN/Creat Ratio 16.8 RATIO (10-20); Calcium,Total 9.7 mg/dL (7.6-11.0); Carbon Dioxide 26.6 mmol/L (21.0-32.0); Chloride 100 mmol/L (98-108); Cholesterol 230 mg/dL (<=200); Ferritin 30 ng/mL (22-378); Free T3 2.7 pg/mL (2.18-3.98); Globulin 2.8 g/dL (2.2-4.2); Glucose 104 mg/dL (70-99); Low Density Lipoprotein Calc. 139 mg/dL; Potassium 4.1 mmol/L (3.3-5.1); Triglycerides 205 mg/dL; Very Low Density Lipoprotein 41 mg/dL (5-40); Vitamin B12 903 pg/mL (180-914); Vitamin D,25 Hydroxy 74.4 ng/mL (30-100); cholesterol:hdl ratio screen 4.24
[2025-10-07 13:19] LABS: Iron 76 ug/dL (50-170)
== END | disposition home or self-care (01) ==
LOC: BFHLAB 09:09
PROVIDERS: PCP Family Medicine; Visit Provider Family Medicine
DX: E11.9 Type 2 diabetes mellitus without complications (principal); R53.83 Other fatigue; E53.8 Deficiency of other specified B group vitamins; E03.9 Hypothyroidism, unspecified; D50.9 Iron deficiency anemia, unspecified; E55.9 Vitamin D deficiency, unspecified; Z51.81 Encounter for therapeutic drug level monitoring
CPT/HCPCS: 36415; 80053; 80061; 82306; 82607; 82728; 83036; 83540; 84439; 84443; 84481; 85025